=== PATIENT | female | born 1960 | race Caucasian/White ===

== ENCOUNTER → 2019-10-28 10:59 | Outpatient (BNVA) | payer MEDICAID, SELFPAY | PROVIDERS: Family Provider Nurse Practitioner Family; Visit Provider Nurse Practitioner | DX: R05 Cough (principal); J22 Unspecified acute lower respiratory infection | CPT/HCPCS: 87400 ==

== ENCOUNTER → 2019-11-17 07:48 | Outpatient (BNVA) | payer MEDICAID, SELFPAY | PROVIDERS: Family Provider Nurse Practitioner Family; Visit Provider Counselor Professional | DX: F33.2 Major depressive disorder, recurrent severe without psychotic features (principal); F43.9 Reaction to severe stress, unspecified; F42.9 Obsessive-compulsive disorder, unspecified | CPT/HCPCS: 90834 ==

== ENCOUNTER → 2019-11-21 08:49 | Outpatient (BNVA) | payer MEDICAID, SELFPAY | PROVIDERS: Family Provider Nurse Practitioner Family; Visit Provider Counselor Professional | DX: F33.2 Major depressive disorder, recurrent severe without psychotic features (principal); F42.9 Obsessive-compulsive disorder, unspecified | CPT/HCPCS: 90834 ==

== ENCOUNTER → 2019-11-28 07:58 | Outpatient (BNVA) | payer MEDICAID, SELFPAY | PROVIDERS: Family Provider Nurse Practitioner Family; Visit Provider Counselor Professional | DX: F33.2 Major depressive disorder, recurrent severe without psychotic features (principal); F43.9 Reaction to severe stress, unspecified; F42.9 Obsessive-compulsive disorder, unspecified | CPT/HCPCS: 90834 ==

== ENCOUNTER → 2019-11-29 07:35 | Outpatient (BNVA) | payer MEDICAID, SELFPAY | PROVIDERS: Family Provider Nurse Practitioner Family; Visit Provider Psychiatry & Neurology Psychiatry | DX: F33.2 Major depressive disorder, recurrent severe without psychotic features (principal) | CPT/HCPCS: 99205 ==

== ENCOUNTER → 2019-12-05 08:28 | Outpatient (BNVA) | payer MEDICAID, SELFPAY | PROVIDERS: Family Provider Nurse Practitioner Family; Visit Provider Counselor Professional | DX: F33.2 Major depressive disorder, recurrent severe without psychotic features (principal); F43.9 Reaction to severe stress, unspecified; F42.9 Obsessive-compulsive disorder, unspecified | CPT/HCPCS: 90834 ==

== ENCOUNTER → 2019-12-13 08:23 | Outpatient (BNVA) | payer MEDICAID, SELFPAY | PROVIDERS: Family Provider Nurse Practitioner Family; Visit Provider Counselor Professional | DX: F33.2 Major depressive disorder, recurrent severe without psychotic features (principal); F43.9 Reaction to severe stress, unspecified; F42.9 Obsessive-compulsive disorder, unspecified | CPT/HCPCS: 90834 ==

== ENCOUNTER → 2019-12-25 08:35 | Outpatient (BNVA) | payer MEDICAID, SELFPAY | PROVIDERS: Family Provider Nurse Practitioner Family; Visit Provider Counselor Professional | DX: F33.2 Major depressive disorder, recurrent severe without psychotic features (principal); F43.9 Reaction to severe stress, unspecified; F42.9 Obsessive-compulsive disorder, unspecified | CPT/HCPCS: 90834 ==

== ENCOUNTER → 2019-12-29 08:28 | Outpatient (BNVA) | payer MEDICAID, SELFPAY | PROVIDERS: Family Provider Nurse Practitioner Family; Visit Provider Nurse Practitioner Psychiatric/Mental Health | DX: F33.2 Major depressive disorder, recurrent severe without psychotic features (principal); F43.12 Post-traumatic stress disorder, chronic; F42.9 Obsessive-compulsive disorder, unspecified; G47.00 Insomnia, unspecified; F41.1 Generalized anxiety disorder | CPT/HCPCS: 99214 ==

== ENCOUNTER → 2020-01-02 08:43 | Outpatient (BNVA) | payer MEDICAID, SELFPAY | PROVIDERS: Family Provider Nurse Practitioner Family; Visit Provider Counselor Professional | DX: F33.2 Major depressive disorder, recurrent severe without psychotic features (principal); F43.9 Reaction to severe stress, unspecified; F42.9 Obsessive-compulsive disorder, unspecified; F43.12 Post-traumatic stress disorder, chronic; G47.00 Insomnia, unspecified | CPT/HCPCS: 90834 ==

== ENCOUNTER → 2020-01-15 08:09 | Outpatient (BNVA) | payer MEDICAID, SELFPAY | PROVIDERS: Family Provider Nurse Practitioner Family; Visit Provider Counselor Professional | DX: F33.2 Major depressive disorder, recurrent severe without psychotic features (principal); F43.9 Reaction to severe stress, unspecified; F42.9 Obsessive-compulsive disorder, unspecified; F43.12 Post-traumatic stress disorder, chronic | CPT/HCPCS: 90834 ==

== ENCOUNTER → 2020-01-22 08:28 | Outpatient (BNVA) | payer MEDICAID, SELFPAY | PROVIDERS: Family Provider Nurse Practitioner Family; Visit Provider Counselor Professional | DX: F33.2 Major depressive disorder, recurrent severe without psychotic features (principal); F43.9 Reaction to severe stress, unspecified; F42.9 Obsessive-compulsive disorder, unspecified; F43.12 Post-traumatic stress disorder, chronic | CPT/HCPCS: 90834 ==

== ENCOUNTER → 2020-01-26 08:05 | Outpatient (BNVA) | payer MEDICAID, SELFPAY | PROVIDERS: Family Provider Nurse Practitioner Family; Visit Provider Nurse Practitioner Psychiatric/Mental Health | DX: G47.00 Insomnia, unspecified (principal); F33.2 Major depressive disorder, recurrent severe without psychotic features; F43.12 Post-traumatic stress disorder, chronic; F42.9 Obsessive-compulsive disorder, unspecified; F41.1 Generalized anxiety disorder | CPT/HCPCS: 99214 ==

== ENCOUNTER → 2020-01-29 08:08 | Outpatient (BNVA) | payer MEDICAID, SELFPAY | PROVIDERS: Family Provider Nurse Practitioner Family; Visit Provider Counselor Professional | DX: F33.2 Major depressive disorder, recurrent severe without psychotic features (principal); F43.9 Reaction to severe stress, unspecified; F42.9 Obsessive-compulsive disorder, unspecified; F43.12 Post-traumatic stress disorder, chronic; G47.00 Insomnia, unspecified | CPT/HCPCS: 90834 ==

== ENCOUNTER → 2020-02-05 08:15 | Outpatient (BNVA) | payer MEDICAID, SELFPAY | PROVIDERS: Family Provider Nurse Practitioner Family; Visit Provider Counselor Professional | DX: F33.2 Major depressive disorder, recurrent severe without psychotic features (principal); F43.9 Reaction to severe stress, unspecified; F42.9 Obsessive-compulsive disorder, unspecified; F43.12 Post-traumatic stress disorder, chronic; G47.00 Insomnia, unspecified | CPT/HCPCS: 90834 ==

== ENCOUNTER → 2020-02-19 08:23 | Outpatient (BNVA) | payer MEDICAID, SELFPAY | PROVIDERS: Family Provider Nurse Practitioner Family; Visit Provider Counselor Professional | DX: F33.2 Major depressive disorder, recurrent severe without psychotic features (principal); F43.12 Post-traumatic stress disorder, chronic; G47.00 Insomnia, unspecified; F42.9 Obsessive-compulsive disorder, unspecified | CPT/HCPCS: 90832 ==

== ENCOUNTER → 2020-03-11 08:12 | Outpatient (BNVA) | payer MEDICAID, SELFPAY | PROVIDERS: Family Provider Nurse Practitioner Family; Visit Provider Counselor Professional | DX: F33.2 Major depressive disorder, recurrent severe without psychotic features (principal); F43.12 Post-traumatic stress disorder, chronic; G47.00 Insomnia, unspecified; F42.9 Obsessive-compulsive disorder, unspecified | CPT/HCPCS: 90834 ==

== ENCOUNTER → 2020-04-01 08:45 | Outpatient (BNVA) | payer MEDICAID, SELFPAY | PROVIDERS: Family Provider Nurse Practitioner Family; Visit Provider Counselor Professional | DX: F33.2 Major depressive disorder, recurrent severe without psychotic features (principal); F43.12 Post-traumatic stress disorder, chronic; G47.00 Insomnia, unspecified; F42.9 Obsessive-compulsive disorder, unspecified | CPT/HCPCS: 90832 ==

== ENCOUNTER → 2020-04-02 08:02 | Outpatient (BNVA) | payer MEDICAID, SELFPAY | PROVIDERS: Family Provider Nurse Practitioner Family; Visit Provider Nurse Practitioner Psychiatric/Mental Health | DX: F33.2 Major depressive disorder, recurrent severe without psychotic features (principal); F43.12 Post-traumatic stress disorder, chronic; F42.9 Obsessive-compulsive disorder, unspecified; G47.00 Insomnia, unspecified | CPT/HCPCS: 99214 ==

== ENCOUNTER → 2020-04-15 09:22 | Outpatient (BNVA) | payer MEDICAID, SELFPAY | PROVIDERS: Family Provider Nurse Practitioner Family; Visit Provider Counselor Professional | DX: F33.2 Major depressive disorder, recurrent severe without psychotic features (principal); F43.12 Post-traumatic stress disorder, chronic; G47.00 Insomnia, unspecified; F60.5 Obsessive-compulsive personality disorder | CPT/HCPCS: 90834 ==

== ENCOUNTER → 2020-04-29 09:04 | Outpatient (BNVA) | payer MEDICAID, SELFPAY | PROVIDERS: Family Provider Nurse Practitioner Family; Visit Provider Counselor Professional | DX: F33.2 Major depressive disorder, recurrent severe without psychotic features (principal); F43.12 Post-traumatic stress disorder, chronic; G47.00 Insomnia, unspecified; F42.9 Obsessive-compulsive disorder, unspecified | CPT/HCPCS: 90832 ==

== ENCOUNTER → 2020-05-13 08:57 | Outpatient (BNVA) | payer MEDICAID, SELFPAY | PROVIDERS: Family Provider Nurse Practitioner Family; Visit Provider Counselor Professional | DX: F33.2 Major depressive disorder, recurrent severe without psychotic features (principal); F43.12 Post-traumatic stress disorder, chronic; G47.00 Insomnia, unspecified; F42.9 Obsessive-compulsive disorder, unspecified | CPT/HCPCS: 90834 ==

== ENCOUNTER → 2020-05-20 08:55 | Outpatient (BNVA) | payer MEDICAID, SELFPAY | PROVIDERS: Family Provider Nurse Practitioner Family; Visit Provider Counselor Professional | DX: F33.2 Major depressive disorder, recurrent severe without psychotic features (principal); F43.12 Post-traumatic stress disorder, chronic; G47.00 Insomnia, unspecified; F42.9 Obsessive-compulsive disorder, unspecified | CPT/HCPCS: 90832 ==

== ENCOUNTER → 2020-05-28 07:58 | Outpatient (BNVA) | payer MEDICAID, SELFPAY | PROVIDERS: Family Provider Nurse Practitioner Family; Visit Provider Nurse Practitioner Psychiatric/Mental Health | DX: F42.9 Obsessive-compulsive disorder, unspecified (principal); F33.2 Major depressive disorder, recurrent severe without psychotic features; F43.12 Post-traumatic stress disorder, chronic; F17.210 Nicotine dependence, cigarettes, uncomplicated; G47.00 Insomnia, unspecified | CPT/HCPCS: 99214 ==

== ENCOUNTER → 2020-06-03 08:55 | Outpatient (BNVA) | payer MEDICAID, SELFPAY | PROVIDERS: Family Provider Nurse Practitioner Family; Visit Provider Counselor Professional | DX: F33.2 Major depressive disorder, recurrent severe without psychotic features (principal); F43.12 Post-traumatic stress disorder, chronic; G47.00 Insomnia, unspecified; F42.9 Obsessive-compulsive disorder, unspecified; F17.210 Nicotine dependence, cigarettes, uncomplicated | CPT/HCPCS: 90834 ==

== ENCOUNTER → 2020-06-11 15:18 | Outpatient (BNVA) | payer MEDICARE, MEDICAID, SELFPAY | PROVIDERS: Family Provider Nurse Practitioner Family; Visit Provider Nurse Practitioner Psychiatric/Mental Health | DX: G47.00 Insomnia, unspecified (principal); F42.9 Obsessive-compulsive disorder, unspecified; F33.2 Major depressive disorder, recurrent severe without psychotic features; F43.12 Post-traumatic stress disorder, chronic; F17.210 Nicotine dependence, cigarettes, uncomplicated; F90.2 Attention-deficit hyperactivity disorder, combined type | CPT/HCPCS: 99214 ==

== ENCOUNTER → 2020-06-20 08:19 | Outpatient (BNVA) | payer MEDICARE, MEDICAID, SELFPAY | PROVIDERS: Family Provider Nurse Practitioner Family; Visit Provider Nurse Practitioner Psychiatric/Mental Health | DX: F43.12 Post-traumatic stress disorder, chronic (principal); F42.9 Obsessive-compulsive disorder, unspecified; G47.00 Insomnia, unspecified; F33.2 Major depressive disorder, recurrent severe without psychotic features; F17.210 Nicotine dependence, cigarettes, uncomplicated | CPT/HCPCS: 99213 ==

== ENCOUNTER → 2020-06-27 07:38 | Outpatient (BNVA) | payer MEDICARE, MEDICAID, SELFPAY | PROVIDERS: Family Provider Nurse Practitioner Family; Visit Provider Nurse Practitioner Psychiatric/Mental Health | DX: F42.9 Obsessive-compulsive disorder, unspecified (principal); F33.2 Major depressive disorder, recurrent severe without psychotic features; F43.12 Post-traumatic stress disorder, chronic; F17.210 Nicotine dependence, cigarettes, uncomplicated; G47.00 Insomnia, unspecified | CPT/HCPCS: 99214 ==

== ENCOUNTER → 2020-07-04 07:35 | Outpatient (BNVA) | payer MEDICARE, MEDICAID, SELFPAY | PROVIDERS: Family Provider Nurse Practitioner Family; Visit Provider Nurse Practitioner Psychiatric/Mental Health | DX: F42.9 Obsessive-compulsive disorder, unspecified (principal); F33.2 Major depressive disorder, recurrent severe without psychotic features; F43.12 Post-traumatic stress disorder, chronic; F17.210 Nicotine dependence, cigarettes, uncomplicated; G47.00 Insomnia, unspecified | CPT/HCPCS: 99214 ==

== ENCOUNTER → 2020-07-15 14:44 | Outpatient (BNVA) | payer MEDICARE, MEDICAID, SELFPAY | PROVIDERS: Family Provider Nurse Practitioner Family; Visit Provider Nurse Practitioner Psychiatric/Mental Health | DX: F42.9 Obsessive-compulsive disorder, unspecified (principal) | CPT/HCPCS: 99214 ==

== ENCOUNTER → 2020-07-29 09:10 | Outpatient (BNVA) | payer MEDICARE, MEDICAID, SELFPAY | PROVIDERS: Family Provider Nurse Practitioner Family; Visit Provider Nurse Practitioner Psychiatric/Mental Health | DX: F42.9 Obsessive-compulsive disorder, unspecified (principal); F33.2 Major depressive disorder, recurrent severe without psychotic features; F43.12 Post-traumatic stress disorder, chronic; F17.210 Nicotine dependence, cigarettes, uncomplicated; G47.00 Insomnia, unspecified | CPT/HCPCS: 99213 ==

== ENCOUNTER → 2020-09-11 09:03 | Outpatient (BNVA) | payer MEDICARE, MEDICAID, SELFPAY | PROVIDERS: Family Provider Nurse Practitioner Family; PCP Nurse Practitioner Family; Visit Provider Nurse Practitioner Psychiatric/Mental Health | DX: G47.00 Insomnia, unspecified (principal); F42.9 Obsessive-compulsive disorder, unspecified; F33.2 Major depressive disorder, recurrent severe without psychotic features; F43.12 Post-traumatic stress disorder, chronic; F17.210 Nicotine dependence, cigarettes, uncomplicated | CPT/HCPCS: 99214 ==

== ENCOUNTER → 2020-09-23 09:28 | Outpatient (BNVA) | payer MEDICARE, MEDICAID, SELFPAY | PROVIDERS: Family Provider Nurse Practitioner Family; PCP Nurse Practitioner Family; Visit Provider Nurse Practitioner Psychiatric/Mental Health | DX: F42.9 Obsessive-compulsive disorder, unspecified (principal); F33.2 Major depressive disorder, recurrent severe without psychotic features; F43.12 Post-traumatic stress disorder, chronic; F17.210 Nicotine dependence, cigarettes, uncomplicated; G47.00 Insomnia, unspecified | CPT/HCPCS: 99214 ==

== ENCOUNTER → 2020-09-28 12:17 | Outpatient (BNVA) | payer MEDICARE, MEDICAID, SELFPAY | PROVIDERS: Family Provider Nurse Practitioner Family; PCP Nurse Practitioner Family; Visit Provider Internal Medicine Pulmonary Disease | DX: Z01.812 Encounter for preprocedural laboratory examination (principal); Z20.828 Contact with and (suspected) exposure to other viral communicable diseases | CPT/HCPCS: 87635 ==

== ENCOUNTER 2020-10-03 13:01 | Outpatient (CLI) | payer MEDICARE, MEDICAID, SELFPAY ==
--- NOTE | 2020-10-03 13:07 | CT_ITS ---
WS: [id number] CT CHEST WITHOUT INTRAVENOUS CONTRAST HISTORY: FOLLOW UP OF RIGHT LUNG OPACITY TECHNIQUE: Contiguous 5 mm axial imaging performed on the thorax. Coronal and sagittal reformats are submitted. All CT scans at [facility] use at least one of these dose optimization techniq ues: automated exposure control; mA and/or kV adjustment per patient size (includes targeted exams wh ere dose is matched to clinical indication); or iterative reconstruction. CONTRAST: None DLP: 877.22 mGy.cm COMPARISON: 06/28/2019 and 11/28/2018 Lungs and central airway: Lungs are hyperexpanded from emphysema. No new or suspicious mass. There is a rounded opacifications in the RIGHT lower lobe abutting the pleura with a small amount of pleural thickening. This rounded opacification contains some calcifications and measures 4.0 x 1.7 cm. No inc rease in size over several years. This appears to be rounded atelectasis with adjacent reactive pleur al thickening. No pneumonia. Normal vasculature. Pleura: No pleural effusion. Heart and pericardium: Normal size heart with no pericardial effusion. Mediastinum and magdalena: No mediastinum or hilar adenopathy. Vessels: Marked dilatation of the pulmonary artery. Pulmonary artery is dilated to 4.7 cm. Mild ather osclerosis aorta. Chest wall and lower neck: No soft tissue masses. Upper abdomen: Negative. Osseous structures: No destructive process. CT/CT chest wo con [id number] IMPRESSION: 1. Long-term stability rounded atelectasis RIGHT lower thorax. 2. Marked enlargement of the pulmonary artery to 4.7 cm. 3. Chronic emphysema.
--- NOTE | 2020-10-03 13:55 | PFTS_ITS ---
Date of Study:10/03/20 Date of Dictation: 10/08/2020 MECHANICS: Forced vital capacity (FVC) is reduced. Forced expiratory volume in one second (FEV1) is severely reduced 39% FEV1/FVC is reduced. There is significant response to bronchodilators. FLOW VOLUME LOOP: Sloping of expiratory limb suggestive of significant airway obstruction . LUNG VOLUMES: Not measured DIFFUSING CAPACITY FOR CARBON MONOXIDE: Moderately reduced 59% . INTERPRETATION: The spirometry consistent with severe obstructive ventilatory defect with significant response to bronchodilators. Moderately reduced gas transfer. Please correlate clinically MTDD
== END 2020-10-03 13:02 | disposition home or self-care (01) ==
LOC: RT 13:05
PROVIDERS: PCP Nurse Practitioner Family; Visit Provider Internal Medicine Pulmonary Disease
DX: F33.2 Major depressive disorder, recurrent severe without psychotic features (principal); F42.9 Obsessive-compulsive disorder, unspecified; F43.12 Post-traumatic stress disorder, chronic; F17.210 Nicotine dependence, cigarettes, uncomplicated; G47.00 Insomnia, unspecified; J44.9 Chronic obstructive pulmonary disease, unspecified
CPT/HCPCS: 71250; 94060; 94618; 94729; 99214; J7611

== ENCOUNTER → 2020-10-11 07:57 | Outpatient (BNVA) | payer MEDICARE, MEDICAID, SELFPAY | PROVIDERS: PCP Nurse Practitioner Family; Visit Provider Nurse Practitioner Psychiatric/Mental Health | DX: F42.9 Obsessive-compulsive disorder, unspecified (principal); F33.2 Major depressive disorder, recurrent severe without psychotic features; F43.12 Post-traumatic stress disorder, chronic; F17.210 Nicotine dependence, cigarettes, uncomplicated; G47.00 Insomnia, unspecified | CPT/HCPCS: 99214 ==

== ENCOUNTER → 2020-11-12 09:28 | Outpatient (BNVA) | payer MEDICARE, MEDICAID, SELFPAY | PROVIDERS: PCP Nurse Practitioner Family; Visit Provider Nurse Practitioner Psychiatric/Mental Health | DX: F42.9 Obsessive-compulsive disorder, unspecified (principal); F33.2 Major depressive disorder, recurrent severe without psychotic features; F43.12 Post-traumatic stress disorder, chronic; F17.210 Nicotine dependence, cigarettes, uncomplicated; G47.00 Insomnia, unspecified | CPT/HCPCS: 99214 ==

== ENCOUNTER 2020-11-19 20:00 | Outpatient (CLI) | payer MEDICARE, MEDICAID, SELFPAY | END 2020-11-19 20:01 | disposition home or self-care (01) | LOC: SLEEP 11-20 08:23 | PROVIDERS: PCP Nurse Practitioner Family; Visit Provider Internal Medicine Pulmonary Disease | DX: G47.33 Obstructive sleep apnea (adult) (pediatric) (principal); I26.99 Other pulmonary embolism without acute cor pulmonale | CPT/HCPCS: 95811 ==

== ENCOUNTER → 2020-12-02 07:42 | Outpatient (BNVA) | payer MEDICARE, MEDICAID, SELFPAY | PROVIDERS: PCP Nurse Practitioner Family; Visit Provider Nurse Practitioner Psychiatric/Mental Health | DX: F42.9 Obsessive-compulsive disorder, unspecified (principal); F33.2 Major depressive disorder, recurrent severe without psychotic features; F43.12 Post-traumatic stress disorder, chronic; F17.210 Nicotine dependence, cigarettes, uncomplicated; G47.00 Insomnia, unspecified | CPT/HCPCS: 99214 ==

== ENCOUNTER 2021-01-08 11:33 | Outpatient (CLI) | payer MEDICARE, MEDICAID, SELFPAY ==
[2021-01-11 03:48] LABS: Antithrombin III Activity 95 % normal (80-135)
[2021-01-11 21:27] LABS: PROTEIN C, ACTIVITY 124 % (70-180)
[2021-01-14 01:28] LABS: PROTEIN S, ACTIVITY 103 % normal (60-140)
== END 2021-01-08 11:34 | disposition home or self-care (01) ==
LOC: LAB 11:37
PROVIDERS: PCP Nurse Practitioner Family; Visit Provider Internal Medicine Pulmonary Disease
DX: I26.99 Other pulmonary embolism without acute cor pulmonale (principal)
CPT/HCPCS: 36415; 81241; 85210; 85300; 85303; 85306

== ENCOUNTER 2021-01-28 14:00 | Outpatient (CLI) | payer MEDICARE, MEDICAID, SELFPAY ==
--- NOTE | 2021-01-28 14:12 | CT_ITS ---
WS: [id number] CT CHEST WITH INTRAVENOUS CONTRAST HISTORY: CHEST PAIN, UNSPECIFIED TECHNIQUE: Contiguous 5 mm axial imaging performed on the thorax. Coronal and sagittal reformats are submitted. All CT scans at [facility] use at least one of these dose optimization techniq ues: automated exposure control; mA and/or kV adjustment per patient size (includes targeted exams wh ere dose is matched to clinical indication); or iterative reconstruction. CONTRAST: Omnipaque 300; 95 mL IV. DLP: 980.98 mGycm COMPARISON: 10/03/2020 Quality of this examination is significantly limited by breathing artifact. Lungs and central airway: Chronic emphysema. Lucencies in the upper lung fofana. Lungs are hyperexpan ded. Rounded atelectasis is again noted the RIGHT lung base without significant increase in size. Sub tle changes or new nodules would be difficult to visualize with this amount of motion. Pleura: Small RIGHT pleural effusion and pleural thickening. Heart and pericardium: Mild enlargement of the LEFT heart chambers. No effusion. Mediastinum and magdalena: No mediastinum or hilar adenopathy. Vessels: Mild atherosclerosis aorta. Severe enlargement of pulmonary artery measuring up to 4.4 cm. M ain pulmonary arteries are also dilated with rapid tapering. Chest wall and lower neck: No soft tissue masses. Upper abdomen: No adrenal mass. Low-attenuation lesion in the spleen is probably a small cyst. Stable compared to the prior study. Osseous structures: Straightening of the normal thoracic kyphosis with mild curvature. CT/CT chest w con* [id number] IMPRESSION: 1. Quality of this examination is compromised by breathing artifact. 2. Rounded atelectasis is stable at the RIGHT lung base. 3. No adenopathy. 4. Marked pulmonary hypertension. 5. Mild atherosclerosis aorta.
[2021-01-28] MEDS: iohexol 300 mg/mL 100 mL Btl IV (14:45)
== END 2021-01-28 14:01 | disposition home or self-care (01) ==
PROVIDERS: PCP Nurse Practitioner Family; Visit Provider Nurse Practitioner Family
DX: R07.9 Chest pain, unspecified (principal); J98.11 Atelectasis; I27.20 Pulmonary hypertension, unspecified; I70.0 Atherosclerosis of aorta
CPT/HCPCS: 71260; Q9967

== ENCOUNTER 2021-01-29 13:00 | Outpatient (CLI) | payer MEDICARE, MEDICAID, SELFPAY ==
--- NOTE | 2021-01-29 19:06 | ONC CON_ITS ---
Dr. Campos New Patient Note Patient: Anne Turcios Unit #: [id number]: 1960 Dicatated By: Ameya Campos M.D.Date of Visit: Jan 29, 2021 Onc MED New Patient/Consult Referring Physician: Daryl Russell Chief Complaint: Factor V Leiden mutation. History of Present Illness: This is a 60-year-old woman with history of pulmonary embolism who has now been found to have heterozygosity for the factor V Leiden mutation. She had a major episode of pulmonary embolism in July 2017, reportedly saddle embolus. She was living in [facility]. She was treated with Pradaxa, which she continued after moving to this area. She had stopped taking it a couple of months ago when she began having frequent episodes of red blood in the stool. The bleeding resolved after she stopped the medication. She had initially been seen by Dr. Russell in August 2020. Her pulmonary function studies on 10/03/2020 showed severe obstructive ventilatory defect with significant responses to bronchodilators. Her chest CT at that time showed long-term stability of rounded atelectasis in the right lower thorax. There was marked enlargement of the pulmonary artery to 4.7 cm and there was evidence of chronic emphysema. With her follow-up visit on 01/06/2021 she was scheduled for thrombophilia evaluation which confirmed heterozygosity for the factor V Leiden mutation. It was otherwise unrevealing, with normal protein C, protein S, and Antithrombin III activity and with no evidence for a prothrombin gene mutation. She then had a repeat chest CT on 01/28/2021. Rounded atelectasis at the right lung base appeared stable. There was no evidence of pulmonary embolism, but there was evidence of marked pulmonary hypertension. She is seen now for further management of the thrombophilia. Her main complaint is that for the past month and a half or so she has had episodes of sharp, pleuritic pain in the upper left chest. These have been occurring about every 2 weeks and lasting several days. She also has been having spells of weakness in her legs, severe enough that she has to sit down. These tend to occur after the chest pain. She has limited activity tolerance due to weakness and shortness of breath. Her ECOG score is 2. She has good appetite. Her weight has been stable. She has not had fever. She does have some hot flashes and sweating. She reports having frequent episodes of double vision which last 3 to 4 minutes and she intermittently has a nolasco shadow, over her vision. She has shortness of breath and she has nonproductive cough. She uses oxygen as needed. She has nausea off and on. She has no other GI complaints. She has not had any recurrence of blood in the stool since she stopped the Pradaxa. She has no complaints with bladder function. She has no other joint or bone pain. She does not complain of headache. She does report having dizziness almost every day. She has no numbness/paresthesia or other focal neurologic symptoms. She complains that she has a lot of anxiety and that the medication is not controlling it that well. She says she does not have depression, though her records indicate a history of major depression. Past Medical History: Her medical history includes anxiety, chronic obstructive pulmonary disease, depression, hyperlipidemia, hypothyroidism, insomnia, obsessive-compulsive disorder, obstructive sleep apnea, and post traumatic stress disorder. Past Surgical History: Her only surgery was a tubal ligation. Medications: Anoro Ellipta Aerosol Powder, Breath Activated Inhalation, Atorvastatin Calcium 1 Tablet (of 10 mg) Oral daily, clomiPRAMINE HCl 2 (50 mg) Capsule Oral at bedtime, Levothyroxine Sodium 1 Tablet (of 175 mcg) Oral daily, Montelukast Sodium (10 mg) Tablet Oral daily, ProAir HFA Aerosol, solution Inhalation Allergies: No Known Allergies. Social History: Ms. Turcios is . She has history of smoking 1/2 pack of cigarettes daily for 50 years. She has not been able to quit. She has a prior history of methamphetamine use. She has had some alcohol use, but never heavy and now infrequent. Family History: Father at age 80 of natural causes . Mother with emphysema at age 79. A brother as result of homicide at age 62. Her other brother has had pulmonary embolism. She has 3 sisters. One sister also has had pulmonary embolism. Another sister has lung cancer. Review Of Symptoms: Constitutional - She has very limited activity due to shortness of breath and weakness. Her appetite is good. Her weight is stable. She has not had fever. She does have hot flashes and sweating. ECOG score is 2, Eyes - She reports having frequent episodes of double vision lasting 3 to 4 minutes. She intermittently has any nolasco shadow over her vision, ENMT - No sinus congestion/drainage. No mouth sores. No sore throat or difficulty swallowing, Hematologic/Lymphatic - She has easy bruising, Respiratory - She has shortness of breath. She uses oxygen as needed. She has nonproductive cough. No pleuritic pain or hemoptysis, Cardiovascular - She has been having episodes of sharp pleuritic pain in the upper left chest occurring about every 2 weeks and lasting several days. She also reports having palpitations, Gastrointestinal - She has nausea off and on. No heartburn or acid reflux. No diarrhea or constipation. She was having red blood in the stool while she was taking Pradaxa, but none since she stopped the medication, Genitourinary (F) - No dysuria or hematuria. No urinary frequency. No urgency or incontinence, Musculoskeletal - No other joint or bone pain, Integumentary - No skin rash or other skin changes, Neurologic - No headache. She does complain of having dizziness. No numbness or tingling. No other focal neurologic symptoms, Psychiatric - She complains of having anxiety since her medication is not effective. She does not have depression. No insomnia. Vital Signs: Performed on Jan 29, 2021 15:47: 0, 0, 31.00 (HIGH), 1.87 sq.m, 64 in, 95 % (LOW), 71 /min, 18 /min, 123/80 mm(hg), 96.4 F (LOW), and 180.6 lbs (HIGH). Physical Examination: Constitutional - She appears to be in reasonably good general health, Eyes - Sclerae nonicteric. Conjunctivae clear, ENMT - No lesions noted in the oral cavity, Neck - No mass or thyromegaly, Hematologic/Lymphatic - No cervical, clavicular, or axillary adenopathy, Respiratory - Lungs are clear with diminished air movement bilaterally, Cardiovascular - Heart rhythm is regular. There is no murmur, gallop, or rub noted, Abdomen - Soft with mild, generalized abdominal tenderness. Liver and spleen are not enlarged. There is no abdominal mass or ascites noted and there is no inguinal adenopathy, Back/Spine - No spine or CVA tenderness noted, Extremities - No edema. Pedal pulses are palpable bilaterally, Integumentary - No rashes. No suspicious skin lesions noted, Neurologic - No focal neurologic deficits noted. Problem List: 1. Patient with history of major episode of pulmonary embolism in July 2017, treated with Pradaxa. She had recently stopped taking it because of rectal bleeding. Her thrombophilia evaluation showed heterozygosity for the factor V Leiden mutation. She also does have a positive family history for thromboembolism. 2. COPD. 3. She has CT evidence of pulmonary hypertension. 4. She recently has complained of pleuritic pain in the upper left chest. Repeat chest CT on 01/28/2021 showed evidence of marked pulmonary hypertension, but there was no evidence of pulmonary emboli. 5. Obstructive sleep apnea. 6. Hyperlipidemia. 7. Hypothyroidism. 8. PTSD with chronic anxiety and with history of depression. Problems Addressed with this Encounter and Plan: Patient with history of major episode of pulmonary embolism in July 2017, treated with Pradaxa. Her thrombophilia evaluation showed heterozygosity for the factor V Leiden mutation. She also does have a positive family history for thromboembolism. She had recently stopped taking the Pradaxa because of rectal bleeding. The bleeding had subsequently resolved. In the meantime, she has since then complained of episodes of pleuritic pain in the upper left chest. Her repeat chest CT on 01/28/2021 showed no evidence of pulmonary emboli, but there was evidence of marked pulmonary hypertension, which may be the cause for the chest pain. We discussed the fact with a history of having a major episode of unprovoked pulmonary embolism she will be at significant risk for recurrent thromboembolism off anticoagulation. Under normal circumstances, the episode itself would be an indication for long-term anticoagulation irrespective of the factor V Leiden mutation. I am also concerned about the source of the rectal bleeding, she has not had any type of GI evaluation. As such, I have recommended that she first have a screening colonoscopy. In the absence of any underlying pathology, I would strongly encourage her to restart anticoagulation, even if it is at a reduced, maintenance dosage. In the meantime, I also will confer with Dr. Russell regarding further evaluation/management of the pulmonary hypertension. Signed By: Ameya Campos M.D. <<Signature on File>>
== END 2021-01-29 13:01 | disposition home or self-care (01) ==
PROVIDERS: PCP Nurse Practitioner Family; Visit Provider Internal Medicine Medical Oncology
DX: I26.99 Other pulmonary embolism without acute cor pulmonale (principal); D68.51 Activated protein C resistance; J44.9 Chronic obstructive pulmonary disease, unspecified; I27.20 Pulmonary hypertension, unspecified; G47.33 Obstructive sleep apnea (adult) (pediatric); E78.5 Hyperlipidemia, unspecified; E03.9 Hypothyroidism, unspecified; F43.10 Post-traumatic stress disorder, unspecified; F41.9 Anxiety disorder, unspecified; F32.9 Major depressive disorder, single episode, unspecified; Z79.899 Other long term (current) drug therapy; Z79.01 Long term (current) use of anticoagulants
CPT/HCPCS: 99205

== ENCOUNTER → 2021-03-12 12:43 | Outpatient (BNVA) | payer MEDICARE, MEDICAID, SELFPAY | PROVIDERS: PCP Nurse Practitioner Family; Visit Provider Surgery | DX: K92.1 Melena (principal); Z20.822 Contact with and (suspected) exposure to COVID-19 | CPT/HCPCS: 87635 ==

== ENCOUNTER 2021-03-13 07:35 | Outpatient (CLI) | payer MEDICARE, MEDICAID, SELFPAY ==
--- NOTE | 2021-03-13 07:53 | XR_ITS ---
WS: [id number] PROCEDURE: XR chest 2V* [id number] CLINICAL INFORMATION: Pulmonary HTN COMPARISON: FINDINGS: Heart: Stable cardiomegaly. Lungs: Hyperinflation. Moderate to advanced chronic emphysematous changes. Bibasilar atelectasis. No acute pulmonary infiltrates. Bones: Osteopenia. Mild thoracic curve convex left. XR/XR chest 2V* [id number] IMPRESSION: 1. Stable cardiomegaly. 2. Moderate to advanced chronic emphysematous changes. 3. Slight bibasilar atelectasis.
--- NOTE | 2021-03-13 07:53 | NM_ITS ---
WS: [id number] NUCLEAR MEDICINE LUNG VENTILATION AND PERFUSION CLINICAL INFORMATION: rule out Chronic thromboembolism in pt with h/o PE TECHNIQUE: Ventilation/perfusion lung scan with 32.9 mCi technetium 99m DTPA. 5.5 mCi technetium 99m MAA COMPARISON: Radiograph March 13, 2021 FINDINGS: Diffuse heterogeneous perfusion throughout both lungs with central bronchial radiotracer deposition. Heterogeneous perfusion due to emphysematous change. Two lobar matched perfusion defects in the right upper and right lower lobes. Normal perfusion left lung. No mismatched perfusion defects. NM/NM pul vent and perfus* [id number] IMPRESSION: 1. Low to intermediate probability for pulmonary embolus. 2. Findings can be further evaluated with CTA chest PE protocol if renal functi on permits. Exam interpreted using the modified PIOPED II criteria 2008
== END 2021-03-13 07:36 | disposition home or self-care (01) ==
PROVIDERS: PCP Nurse Practitioner Family; Visit Provider Internal Medicine Pulmonary Disease
DX: I27.20 Pulmonary hypertension, unspecified (principal); I26.99 Other pulmonary embolism without acute cor pulmonale
CPT/HCPCS: 71046; 78014; A9540; A9567

== ENCOUNTER 2021-03-17 06:19 | Day surgery (SDC) | payer MEDICARE, MEDICAID, SELFPAY ==
[2021-03-13 13:52] VITALS: BMI 30.9
[2021-03-17 06:41] VITALS: BP 141/94; PULSE 74; RESP 18; TEMP 36.1; O2SAT 93
[2021-03-17] MEDS: sodium chloride 0.9% 1,000 ML 30 ML IV (06:48)
--- NOTE | 2021-03-17 07:18 | P.HP_ITS ---
Same Day Surgery H&P Indication for Procedure/HPI DATE OF PROCEDURE: March 17, 2021 CHIEF COMPLAINT/INDICATIONFOR SURGICAL PROCEDURE: colonoscopy PREOP DIAGNOSIS: diagnostic PLANNED PROCEDRUE: Operation Date: 03/17/21 07:30 Proposed Procedures p Colonoscopy 12360 k92.1(Not Applicable) - Anjel Skinner MD Medications/Allergies* Home Medications Medication Instructions Recorded Confirmed Type albuterol sulfate 5 mg/mL(0.5 %) 2.5 mg INHALATION Q4H PRN 10/28/19 03/17/21 History solution for nebulization albuterol sulfate 90 mcg/actuation 2 puff INHALATION Q6H PRN 10/28/19 03/17/21 History aerosol inhaler montelukast 10 mg tablet 10 mg PO DAILY 10/28/19 03/17/21 History oxygen-air delivery systems #1 10/28/19 03/13/21 History levothyroxine 175 mcg capsule 175 mcg PO DAILY 06/11/20 03/17/21 History atorvastatin 20 mg tablet 20 mg PO .QHS tab 12/09/20 03/17/21 History Allergies/Adverse Reactions Allergy/AdvReac Type Severity Reaction Status Date / Time No Known Allergies Allergy Verified 03/17/21 06:45 Current Medications: Generic Name Dose Route Start Last Admin Trade Name Freq PRN Reason Stop Dose Admin Sodium Chloride 1,000 mls @ 30 mls/hr 03/17/21 06:30 03/17/21 06:48 Sodium Chloride 0.9% IV 03/18/21 06:29 30 mls/hr .Q24H MELE Administration Pertinent History/Comorbid Conditions* Medical History (Updated 03/03/21 @ 19:01 by Daryl Russell MD) Chronic post-traumatic stress disorder Insomnia Major depressive disorder, recurrent severe without psychotic features Obsessive-compulsive disorder with good or fair insight Obstructive sleep apnea Surgical History (Updated 02/10/21 @ 14:37 by Anjel Skinner MD) History of tubal ligation Social History Quit status (tobacco): not considering quitting Second hand smoke exposure: No Smoking risk assessment/counseling performed?: Yes Alcohol intake: never Lives independently: Yes Household members: none Marital status: Current occupational status: disabled Pets and animals: No History of recent travel: No Current gender identity: Female Pertinent Exam Findings alert and oriented x 3 Recommendations Surgery/Procedure today Coding Level of Care Code Acute Loss Prevention Detective for Chg Fwd
--- NOTE | 2021-03-17 07:25 | ANES.PREANE2 ---
Pre-Anesthetic Assessment Pre-Anesthetic Assessment: Height/Weight: Height 1.63 m Weight 81.647 kg Temp Pulse Resp BP Pulse Ox 97 F L 74 18 141/94 93 03/17/21 06:41 03/17/21 06:41 03/17/21 06:41 03/17/21 06:41 03/17/21 06:41 Preop Diagnosis: diagnostic Proposed Procedure: Operation Date: 03/17/21 07:30 Proposed Procedures p Colonoscopy 45279 k92.1(Not Applicable) - Anjel Skinner MD Was Beta Erwin taken within 24 hours: N/A Was Clonidine taken within 24 hours: N/A Last intake: Intake Last Liquid Date 03/16/21 Last Liquid Time 23:00 Last Solid Date 03/15/21 Social: Social History: Alcohol and Tobacco Exam: Pre-Anes Outpt Exam: alert, oriented x 3, clear to auscultation bilaterally and regular rate & rhythm Airway: Submandibular: WNL Cervical ROM: WNL MP: 2 Dentition: Full History/ROS: No significant history except as noted and No significant complaints Pulmonary: Pulmonary: Sleep apnea CV/HEM: CV/HEM: None reported : : None reported Hepatic: Hepatic: None reported GI: GI: None reported Metabolic: Metabolic: None reported Musc/skel: Musc/skel: None reported Neuropsych: Neuropsych: Anxiety, Bipolar, Depression and None reported Anesthetic Plan: ASA status: 2 Anesthesia: MAC Risk of > 500 ml blood loss (7ml/kg in children): No Meds/Allergies Current Medications: Current Medications Generic Name Dose Route Start Last Admin Trade Name Freq PRN Reason Stop Dose Admin Sodium Chloride 1,000 mls @ 30 ml s/hr 03/17/21 06:30 03/17/21 06:48 Sodium Chloride 0.9% IV 03/18/21 06:29 30 mls/hr .Q24H MELE Administration PFSH Anesthesia PFSH: Medical History Chronic post-traumatic stress disorder Insomnia Major depressive disorder, recurrent severe without psychotic features Obsessive-compulsive disorder with good or fair insight Obstructive sleep apnea Surgical History History of tubal ligation Social History Quit status (tobacco): not considering quitting Second hand smoke exposure: No Smoking risk assessment/counseling performed?: Yes Alcohol intake: never Lives independently: Yes Household members: none Marital status: Current occupational status: disabled Pets and animals: No History of recent travel: No Current gender identity: Female Data Anesthesia Cardiac Studies: No Data to Display
[2021-03-17 07:53] VITALS: BP 120/84; PULSE 68; RESP 16; TEMP 36.3; O2SAT 94
[2021-03-17 08:06] VITALS: BP 135/76; PULSE 62; RESP 18; O2SAT 95
--- NOTE | 2021-03-17 08:26 | PC.NURSE ---
Pt c/o abdominal pain 12/23, passed some gas,was encouraged to ambulate to facilitate gas movement and use the toilet. pt expressed concern that she didn't want everyone listening.
--- NOTE | 2021-03-17 19:24 | ANE.PACU2 ---
Inpatient post-anesthesia follow up: Airway intact: Yes Vital signs: Temperature 97.3 F Pulse Rate 62 Respiratory Rate 18 Blood Pressure 135/76 Pulse Oximetry 95 Oxygen Delivery Me thod Room Air Oxygen Flow Rate 4 Fraction of Inspir ed Oxygen Hydration adequate: Yes Nausea and vomiting: No Pain level: 2 Mental status: Baseline
== END 2021-03-17 08:35 | disposition home or self-care (01) ==
PROVIDERS: PCP Nurse Practitioner Family; Visit Provider Surgery
PROC: 0DJD8ZZ Inspection of Lower Intestinal Tract, Via Natural or Artificial Opening Endoscopic (ICD-10-PCS; CPT 45378; principal; 2021-03-17 07:30)
DX: K92.1 Melena (principal); G47.33 Obstructive sleep apnea (adult) (pediatric); D12.4 Benign neoplasm of descending colon; K64.8 Other hemorrhoids; D12.8 Benign neoplasm of rectum
CPT/HCPCS: 45380; 45385; 88305; 96360; J2704; J7030

== ENCOUNTER 2021-03-27 06:58 | Outpatient (CLI) | payer MEDICARE, MEDICAID, SELFPAY ==
--- NOTE | 2021-03-27 07:05 | USCV_ITS ---
Anne Turcios Age: 60 Gender: F : 1960 Exam Date: 03/27/2021 07:13 Ordering Phys: Daryl Russell MD Technologist: Kamila Jay Exam Location: [facility] [place] Indication: Pulmonary Hypertension BP: 119 / 70 HR: 69 Rhythm: Sinus Technical Quality: Technically difficult study MEASUREMENTS (Male / Female) Normal Values 2D ECHO LV Diastolic Diameter PLAX 3.8 cm 4.2 - 5.9 / 3.9 - 5.3 cm LV Systolic Diameter PLAX 3.2 cm IVS Diastolic Thickness 1.7 cm 0.6 - 1.0 / 0.6 - 0.9 cm IVS Systolic Thickness 1.8 cm LVPW Diastolic Thickness 1.3 cm 0.6 - 1.0 / 0.6 - 0.9 cm LVPW Systolic Thickness 1.7 cm RV Chamber Size 2.8 cm LVOT Diameter 2.0 cm LV Ejection Fraction 2D Teich 34.5 % LV Ejection Fraction MOD 2C 61.2 % LV Ejection Fraction 2C AL 62.5 % LA Diameter 3.1 cm LA Width 3.1 cm LA Height 5.0 cm RA Width 3.4 cm RA Height 4.5 cm Aorta at Sinotubular Diameter 2.1 cm DOPPLER AV Peak Velocity 156.0 cm/s LVOT Peak Velocity 107.0 cm/s AV Area Cont Eq vti 2.3 cm squared AV Area Cont Eq pk 2.2 cm squared MV Area PHT 3.6 cm squared Mitral E to A Ratio 0.8 MV E' Velocity 40.5 cm/s Mitral E to MV E' Ratio 7.8 Mitral E to LV E' Lateral Ratio 8.1 Mitral E to LV E' Septal Ratio 7.6 TR Peak Velocity 217.0 cm/s TR Peak Gradient 18.8 mmHg TV Peak E Velocity 45.0 cm/s PV Peak Velocity 104.0 cm/s RV Acceleration Time 0.1 s RV Ejection Time 0.3 s RV AcT/ET 0.5 FINDINGS Left Ventricle Normal left ventricular cavity size. Normal left ventricular systolic function. No regional wall motion abnormalities. Left ventricular ejection fraction is estimated at 65 %. Grade I/IV diastolic dysfunction (abnormal relaxation filling pattern), normal to mildly elevated filling pressures. Right Ventricle The right ventricle is normal in size and function. RVSP could not be calculated due to incomplete tricuspid regurgitation velocity profile. Right Atrium The right atrium is normal in size. Left Atrium The left atrium is normal in size. Mitral Valve Structurally normal mitral valve without significant stenosis or prolapse. There is no mitral regurgitation. Aortic Valve Moderate aortic valve calcification. No aortic valve stenosis. Mild aortic valve regurgitation. Tricuspid Valve Structurally normal tricuspid valve without significant stenosis or regurgitation. Pulmonic Valve Structurally normal pulmonic valve without significant stenosis. There is no pulmonic regurgitation. Pericardium Normal pericardium without effusion. Aorta Normal ascending aorta dimension. CONCLUSIONS 1-Normal left ventricular cavity size. Normal left ventricular systolic function. No regional wall motion abnormalities. Left ventricular ejection fraction is estimated at 65 %. Grade I/IV diastolic dysfunction (abnormal relaxation filling pattern), normal to mildly elevated filling pressures. 2-Moderate aortic valve calcification. No aortic valve stenosis. Mild aortic valve regurgitation. 3-The right ventricle is normal in size and function. RVSP could not be calculated due to incomplete tricuspid regurgitation velocity profile. 4-There is no pericardial effusion. 5-Right atrial pressure is around 5 mm of mercury. 6-There are no prior echocardiogram studies to compare. Glenda Ram MD (Electronically Signed) Final Date: 27 March 2021 17:37 S
== END 2021-03-27 06:59 | disposition home or self-care (01) ==
LOC: US 07:02
PROVIDERS: PCP Nurse Practitioner Family; Visit Provider Internal Medicine Pulmonary Disease
DX: I27.20 Pulmonary hypertension, unspecified (principal); I35.1 Nonrheumatic aortic (valve) insufficiency
CPT/HCPCS: 93306

== ENCOUNTER 2021-09-04 12:28 | Emergency (ER) | payer MEDICARE, MEDICAID, SELFPAY ==
[2021-09-04 12:48] VITALS: BP 119/71; PULSE 83; RESP 22; TEMP 37.1; O2SAT 90; BMI 33.5
--- NOTE | 2021-09-04 13:01 | XR_ITS ---
WS: [id number] Exam: XR chest 1V portable [id number] Date/Time of Exam: 09/04/2021 1:01 PM Reason For Exam: cough Comparison 03/13/2021. The lungs are hyperinflated and clear. Plaque atelectasis in the left lung base. No pleural effusions . Mild cardiac enlargement unchanged. Bony structures are intact. One old right-sided rib fracture no samantha. XR/XR chest 1V portable [id number] IMPRESSION: 1. Pulmonary hyperinflation which may indicate obstructive lung disease. Mild c ardiac enlargement unchanged. 2. No acute cardiopulmonary finding.
== END 2021-09-04 19:20 | disposition left against medical advice (07) ==
PROVIDERS: Emergency Provider Family Medicine; PCP Nurse Practitioner Family
DX: Z53.21 Procedure and treatment not carried out due to patient leaving prior to being seen by health care provider (principal)
CPT/HCPCS: 71045

== ENCOUNTER → 2021-10-01 07:47 | Outpatient (BNVA) | payer MEDICARE, MEDICAID, SELFPAY | PROVIDERS: PCP Nurse Practitioner Family; Visit Provider Nurse Practitioner Psychiatric/Mental Health | DX: F42.9 Obsessive-compulsive disorder, unspecified (principal); F33.2 Major depressive disorder, recurrent severe without psychotic features; F43.12 Post-traumatic stress disorder, chronic; F17.210 Nicotine dependence, cigarettes, uncomplicated; G47.00 Insomnia, unspecified | CPT/HCPCS: 99214 ==

== ENCOUNTER → 2021-11-12 07:45 | Outpatient (BNVA) | payer MEDICARE, MEDICAID, SELFPAY | PROVIDERS: PCP Nurse Practitioner Family; Visit Provider Nurse Practitioner Psychiatric/Mental Health | DX: F42.9 Obsessive-compulsive disorder, unspecified (principal); F33.2 Major depressive disorder, recurrent severe without psychotic features; F43.12 Post-traumatic stress disorder, chronic; F17.210 Nicotine dependence, cigarettes, uncomplicated; Z79.899 Other long term (current) drug therapy; G47.00 Insomnia, unspecified | CPT/HCPCS: 99214 ==

== ENCOUNTER → 2021-11-20 10:30 | Outpatient (BNVA) | payer MEDICARE, MEDICAID, SELFPAY | PROVIDERS: PCP Nurse Practitioner Family; Visit Provider Nurse Practitioner Psychiatric/Mental Health | DX: Z79.899 Other long term (current) drug therapy (principal) | CPT/HCPCS: 83036 ==

== ENCOUNTER → 2022-01-20 07:14 | Outpatient (BNVA) | payer MEDICARE, MEDICAID, SELFPAY | PROVIDERS: PCP Nurse Practitioner Family; Visit Provider Nurse Practitioner Psychiatric/Mental Health | DX: F42.9 Obsessive-compulsive disorder, unspecified (principal); F33.2 Major depressive disorder, recurrent severe without psychotic features; F43.12 Post-traumatic stress disorder, chronic; G47.00 Insomnia, unspecified; F17.210 Nicotine dependence, cigarettes, uncomplicated | CPT/HCPCS: 99214 ==

== ENCOUNTER → 2022-02-09 14:07 | Outpatient (BNVA) | payer MEDICARE, MEDICAID, SELFPAY | PROVIDERS: PCP Nurse Practitioner Family; Visit Provider Nurse Practitioner Psychiatric/Mental Health | DX: Z79.899 Other long term (current) drug therapy (principal) | CPT/HCPCS: 80053; 80061; 82306; 84439; 84443 ==

== ENCOUNTER → 2022-02-11 07:10 | Outpatient (BNVA) | payer MEDICARE, MEDICAID, SELFPAY | PROVIDERS: PCP Nurse Practitioner Family; Visit Provider Nurse Practitioner Psychiatric/Mental Health | DX: F33.2 Major depressive disorder, recurrent severe without psychotic features (principal); F42.9 Obsessive-compulsive disorder, unspecified; F17.210 Nicotine dependence, cigarettes, uncomplicated; F43.12 Post-traumatic stress disorder, chronic; G47.00 Insomnia, unspecified | CPT/HCPCS: 99214 ==

== ENCOUNTER 2022-04-29 18:43 | Emergency (ER) | payer MEDICARE, MEDICAID, SELFPAY ==
[2022-04-29] VITALS (10 sets, daily range): BP systolic 72–206; BP diastolic 46–138; PULSE 52–151; RESP 14–18; O2SAT 96–100; BMI 41.1
--- NOTE | 2022-04-29 18:53 | XRR_ITS ---
PROCEDURE INFORMATION: Exam: XR Chest Exam date and time: 04/29/2022 7:13 PM Age: 61 years old Clinical indication: Device placement; Ett placement (vent status); Additional info: Post code, ett TECHNIQUE: Imaging protocol: Radiologic exam of the chest. Views: 1 view. COMPARISON: CR XR chest 1V portable [id number] 09/04/2021 1:06 PM FINDINGS: Tubes, catheters and devices: Enteric tube enters into the stomach and outside the field of view. The endotracheal tube is in proper positioning 4.4 cm above the gallo. Lungs: No consolidation. Pleural spaces: No pleural effusion. No pneumothorax. Heart/Mediastinum: No cardiomegaly. Bones/joints: Right-sided 6th and 7th rib fractures. The rest of the visualized osseous structures are intact. XR/XR chest 1V portable [id number] IMPRESSION: 1. No acute cardiopulmonary abnormalities. 2. Proper positioning of support apparatus.
--- NOTE | 2022-04-29 18:55 | ED_ITS ---
HPI - CPR General: Chief Complaint: Shortness of Breath/Dyspnea Stated Complaint: Cant breathe Time Seen by Provider: 04/29/22 18:53 Limitations: altered mental status and other History of Present Illness: Ms. Turcios is a 61-year-old lady who, per chart review, has a history of PE, pulmonary hypertension, FRANCI, psychiatric disorder who presents to the emergency department in cardiac arrest. History is significantly limited and report given to me was that she has had shortness of breath. She was removed from private vehicle and placed on stretcher and upon being wheeled into resuscitation room she is pulseless and agonal he breathing. CPR initiated, see ED course below. History otherwise limited by acuity of condition and patient's unresponsive mental status. I spoke to the patient's neighbor/friend Hakan Elliott ([phone]) who provided some collateral history. Apparently she was over at her neighbor's house and then came outside and got into his car. She seems significantly short of breath and said she felt short of breath. He noticed that she smelled like she had lost continence and drove directly to the hospital. He was unaware that she was pulseless. He did provide phone number for patient's sister Bambi ([phone]). Patient's friend will take patient's purse and leave it with neighbor. Onset (ago): unknown Review of Systems General: Reports: ROS unobtainable due to medical condition and ROS unobtainable due to mental status [facility] ED PFSH: Medical History Chronic post-traumatic stress disorder Insomnia Major depressive disorder, recurrent severe without psychotic features Obsessive-compulsive disorder with good or fair insight Obstructive sleep apnea Psychiatric care Pulmonary embolism Surgical History History of tubal ligation Status post colonoscopy (03/17/21) Social History Smoking and tobacco status: current every day smoker cigarettes Packs smoked per day: 0.5 Years cigarettes smoked: 50 Quit status (tobacco): not considering quitting Second hand smoke exposure: No Smoking risk assessment/counseling performed?: Yes Alcohol intake: never Lives independently: Yes Household members: none Marital status: Current occupational status: disabled Pets and animals: No History of recent travel: No Current gender identity: Female Physical Exam Const: GENERAL APPEARANCE: in distress and ill appearing HENMT: COMMON NORMALS: normocephalic and atraumatic HEAD & SCALP: normocephalic and atraumatic THROAT: posterior oropharynx normal Eye: COMMON NORMALS: conjunctivae normal CONJUNCTIVA: Yes conjunctivae normal SCLERA: sclerae normal OTHER: Pupils appear fixed 3 mm bilateral. Neck/C-Spine: COMMON NORMALS: supple GENERAL: Yes trachea midline Resp: AUSCULTATION: wheezes and diminished lung sounds OTHER: Diminished breath sounds noted once patient placed on ventilator, patient initially with agonal respirations. Cardio: OTHER: No palpable pulse initially. Upon ROSC strong peripheral and central pulses GI: COMMON NORMALS: Soft to palpation PALPATION: Yes Soft to palpation and No Abdominal wall crepitus present Extremity: GENERAL: Yes normal exam except as noted and No edema Neuro: OTHER: Initially unresponsive. No purposeful movements upon ROSC. Procedures Central Line Placement Right IJ: Time Out Performed: Yes Patient Placed on Monitor/Pulse Ox: Yes MD Prep: mask, gown and gloves Central Line Prep: Chlorhexidine scrub and sterile drapes applied Local Anesthetic: lidocaine 1% Amount of anesthesia used (mL): 3 Ultrasound Used for Placement: Yes Central Line Lumen Inserted: triple Post Procedure: sutured in place, good blood return, all ports aspirated, flushed, capped and sterile dressing applied Post Procedure X-Ray: tip of catheter in good position Patient Tolerated Procedure: well and no complications Additional Comments: Patient unresponsive intubated sedated postcardiac arrest, unable to obtain consent, procedure performed under emergent circumstances given hypotension and need for additional access. Intubation Time out performed: No (Cardiac arrest, emergency circumstances) Laryngoscope: fiber optic video scope ET Tube Size: 8 ET Tube Uncuffed: No Tube Secured Depth (cm): 23 Tube Secured Location: lips Tube Placement Confirmation: visualized tube passing through cords, equal breath sounds bilaterally, no breath sounds over epigastrium and confirmation by capnometry Patient Tolerated Procedure: well (Cardiac arrest) Intubation Complications: none Course ED course: - Patient was seen and evaluated by me at bedside. - Initial exam as above. Pulseless and agonal with ashen appearance. CPR initiated. Initial rhythm PEA. - Short duration attempts at peripheral IV unsuccessful, IO placed - At approximate time of IO placement patient achieved ROSC with a wide-complex tachycardic rhythm that appears to be bundle branch block. - Initial EKG with A. fib with RVR and right bundle branch block. - After approximately 2 minutes of ROSC patient deteriorated into ventricular tachycardia. CPR restarted and 1 defibrillation at 120 J with resumption of CPR shortly thereafter. At next pulse check patient had ROSC. - Patient intubated as noted in procedure successfully - Initial vital signs patient noted to be hypertensive, adequate oxygenation with SPO2 in the 90s. End-tidal CO2 significantly elevated. - Labs and xrays personally interpreted by me - Chest x-ray interpreted at bedside notable for satisfactory endotracheal tube positioning approximately 6 cm from gallo with good aeration of lung fofana. - Given episode of ventricular tachycardia amiodarone bolus 150 mg over 10 minutes and subsequent drip of 1 mg/min ordered. Additional bolus of fentanyl for sedation followed by fentanyl and propofol drip with plan titration per RASS/overall clinical appearance. - Patient has not had purposeful movements/does not follow commands -Initial ABG 6.97/89.8/465. Directed RT to adjust ventilator settings, respiratory rate increased. - Labs notable for leukocytosis which may be reactive, mild hemoconcentration with normal prior baseline. Metabolic panel notable for hyperkalemia and evidence of metabolic stress likely related to lactic acidosis secondary to cardiac arrest. Mild transaminitis of uncertain clinical significance, may be developing shock liver. Initial troponin 16. Toxic ingestions negative. - for hyperkalemia plan to administer fluid bolus and 1 g calcium gluconate. - Imaging notable for negative head CT and neck CT. CT chest abdomen pelvis without evidence of acute pathology, patient has diagnosis of pulmonary pretension which likely explains abnormal pulmonary artery appearance on imaging. - Due to hypotension that developed in CT initially sedation paused though patient appeared uncomfortable with this and subsequently restarted. Amiodarone paused. Nor epi ordered. - Repeat EKG shows sinus bradycardia, no obvious ST elevation. - Repeat ABG improved pH 7.26/PCO2 57.6/PO2 481. Plan to titrate down oxygen FiO2. - Upon serial reexamination after treatment the patient was similar. Patient d id spontaneously open her eyes though did not follow commands. Moves all extremities spontaneously. - Small amount UOP with fluid bolus, appears grossly normal. - Based on patient history, evaluation, and testing as interpreted the most likely cause of the patient's condition is cardiac arrest of uncertain etiology though likely primary respiratory arrest leading to cardiac arrest. - Unfortunately we do not have ICU bed availability at our facility and therefore patient requires transfer - Patient accepted by Dr. Jennings at [facility] hospital. Given critical nature of patient condition she requires expeditious high-level care transfer to accepting facility. Note: Click bubbles or prepopulated fofana in note writing are used for assistance with data collection and billing and are inherently more limited than narrative and other text portions of this note. Please use narrative for additional clinical history and defer to narrative/free test for any case of contradictory information. If information appears in only free text or click bubble it should be considered present or absent as reported. Please contact note keno writer / runner for clarifications of clinical information or contradictory information. MDM is a brief summary, contradictory or erroneous seeming information should be clarified and full note should be reviewed. Vital Signs: Vital signs: Vital Signs Pulse Rate 71 04/29/22 23:41 Respiratory Rate 18 04/29/22 23:41 Blood Pressure 107/71 04/29/22 23:41 Pulse Oximetry 96 04/29/22 23:41 Oxygen Delivery Me thod 04/29/22 22:40 Fraction of Inspir ed Oxygen 100 04/29/22 22:04 MDM - Cardiac Arrest/CPR Medical Decision Making 61-year-old lady presenting to the emergency department in cardiac arrest. Unc lear etiology though suspected to be respiratory failure. Initial rhythm PEA. Obtained ROSC x1 with high-quality CPR for approximately 4 minutes and [id number] ventilation. Subsequently patient went into ventricular tachycardia which was defibrillated and ROSC obtained again after another 2 m inutes approximately of CPR. Patient intubated and CVC placed. Though patient initially hypertensive now requiring nor epi. Best neuro exam involves movement of upper and lower extremities, opens eyes spontaneously, does not follow commands. GCS 9T. Unfortunately we do not have ICU bed availability and therefore patient requires transfer. Family updated via telephone and at bedside upon their arrival. Transferred to [facility] and left ER in critical but satisfactory condition. Medical Records I reviewed the patient's medical records. Lab Data I reviewed the patient's lab results. : 04/29/22 18:50 04/29/22 18:50 Radiology Impressions Cervical Spine CT 04/29/22 19:06 IMPRESSION: No acute findings. Chest/Abdomen/Pelvis CT 04/29/22 19:06 IMPRESSION: 1. Moderate emphysematous changes of the lungs. 2. Dilation of the pulmonary arterial trunk suggestive of pulmonary hypertension in the appropriate clinical setting. IMPRESSION: No acute findings. COMMENTS: Consistent with the [employer]'s Incidental Findings Committee white paper (J Am Liana Radiol 2018): Any incidental renal lesion less than 1 cm or classified as too small to characterize, or any incidental cystic renal lesion characterized as simple-appearing, is likely benign. No follow-up imaging is recommended for these lesions per consensus recommendations based on imaging criteria. Head CT 04/29/22 19:06 IMPRESSION: No acute intracranial abnormality. Chest X-Ray 04/29/22 20:50 IMPRESSION: Interval placement of a right IJ central venous catheter. Laboratory Results WBC 18.0 10^3/uL (4.0-10.0) H 04/29/22 18:50 RBC 5.17 10^6/uL (4.1-5.3) 04/29/22 18:50 Hgb 15.4 g/dL (11.5-15.3) H 04/29/22 18:50 Hct 53.8 % (37.0-47.0) H 04/29/22 18:50 MCV 104.1 fl (81-99) H 04/29/22 18:50 MCH 29.8 pg (28.0-34.0) 04/29/22 18:50 MCHC 28.6 g/dL (30.0-36.0) L 04/29/22 18:50 RDW 13.1 % (12.1-15.1) 04/29/22 18:50 Plt Count 220 10^3/cmm (130-400) 04/29/22 18:50 MPV 12.5 fL (7.4-10.4) H 04/29/22 18:50 Neut % (Auto) 66.1 % 04/29/22 18:50 Lymph % (Auto) 23.2 % 04/29/22 18:50 Gaines % (Auto) 6.9 % 04/29/22 18:50 Eos % (Auto) 0.1 % 04/29/22 18:50 Baso % (Auto) 0.5 % 04/29/22 18:50 Neut # (Auto) 11.90 10^3/uL (1.8-7.7) H 04/29/22 18:50 Lymph # (Auto) 4.2 10^3/uL (0.8-4.8) 04/29/22 18:50 Gaines # (Auto) 1.3 10^3/uL (0.2-0.9) H 04/29/22 18:50 Eos # (Auto) 0.0 10^3/uL (0.0-0.8) 04/29/22 18:50 Baso # (Auto) 0.1 10^3/uL (0.0-0.1) 04/29/22 18:50 Nucleated RBC % (auto) 0.3 % 04/29/22 18:50 Nucleated RBCs # 0.1 /100WBC 04/29/22 18:50 PT 15.10 SECONDS (12.1-14.9) H 04/29/22 18:50 INR 1.16 (0.8-1.2) 04/29/22 18:50 APTT 20.3 SECONDS (23.9-36.7) L 04/29/22 18:50 Specimen Type Arterial 04/29/22 21:48 Sample Site Radial, left 04/29/22 21:48 ABG pH 7.27 (7.35-7.45) L 04/29/22 21:48 ABG pCO2 57.6 mmHg (35-45) H 04/29/22 21:48 ABG pO2 481.0 mmHg (80.0-100.0) H 04/29/22 21:48 ABG HCO3 26.1 mmol/L (22-26) H 04/29/22 21:48 ABG O2 Saturation 99.4 04/29/22 19:13 ABG Base Excess -2.0 mmol/L (-2.0-2.0) 04/29/22 21:48 Jordon Test Pos 04/29/22 21:48 A-a O2 Gradient 18.2 mmHg (5-10) H 04/29/22 19:13 Hematocrit 44.5 % (37-47) 04/29/22 21:48 Hgb O2 Saturation 93.1 % (95-100) L 04/29/22 19:13 Carboxyhemoglobin 5.6 %THgb (0.4-20.1) 04/29/22 19:13 Methemoglobin 0.8 % (0.4-1.5) 04/29/22 19:13 Total Hemoglobin 14.9 g/dL (12-16) 04/29/22 19:13 Sodium 141.0 mmol/L (131-143) 04/29/22 19:13 Potassium 6.7 mmol/L (3.5-5.0) H 04/29/22 19:13 Glucose 381.0 mg/dL (70-115) H 04/29/22 19:13 Ionized Calcium 1.2 mmol/L (1.1-1.4) 04/29/22 19:13 O2 Delivery Device Vent 04/29/22 21:48 FiO2 100.0 % 04/29/22 21:48 PEEP 5.0 cmH20 04/29/22 21:48 Engagement Quality Consultant ID Walci 04/29/22 21:48 Sodium 143 mmol/L (136-145) 04/29/22 18:50 Potassium 6.2 mmol/L (3.5-5.1) H 04/29/22 18:50 Chloride 98 mmol/L (98-107) 04/29/22 18:50 Carbon Dioxide 18 mmol/L (22-29) L 04/29/22 18:50 Anion Gap 33.2 (5-19) H 04/29/22 18:50 BUN 22 mg/dL (6-20) H 04/29/22 18:50 Creatinine 1.1 mg/dL (0.5-0.9) H 04/29/22 18:50 GFR Calculation 50.8 mL/min (90-130) L 04/29/22 18:50 Glucose 285 mg/dL (65-115) H 04/29/22 18:50 POC Glucose 124 mg/dL (70-110) H 04/29/22 18:48 Calculated Osmolality 310 mOsm/kg (285-295) H 04/29/22 18:50 Lactic Acid 15.2 mmol/L (0.5-2.2) H* 04/29/22 Unknown Lactic Acid (Sepsis) 2.1 mmol/L (0.5-2.2) 04/29/22 21:21 Lactate Cancelled 04/29/22 18:50 Calcium 9.5 mg/dL (8.5-10.5) 04/29/22 18:50 Total Bilirubin 0.3 mg/dL (0.15-1.2) 04/29/22 18:50 AST 34 U/L (0-32) H 04/29/22 18:50 ALT 35 U/L (0-33) H 04/29/22 18:50 Alkaline Phosphatase 84 U/L (35-105) 04/29/22 18:50 Troponin T Baseline 16 ng/L (0-10) H 04/29/22 18:50 Troponin T 120 Minute 78.64 ng/L (0-10) H 04/29/22 21:21 Delta Troponin T 62.64 ABS# (0-10) H* 04/29/22 21:21 NT-Pro-B Natriuret Pep 1304 pg/mL (0-125) H 04/29/22 18:50 Total Protein 7.3 g/dL (6.6-8.7) 04/29/22 18:50 Albumin 4.2 g/dL (3.5-5.2) 04/29/22 18:50 Globulin 3.1 g/dL (1.3-4.6) 04/29/22 18:50 TSH 2.90 uIU/mL (0.27-4.20) 04/29/22 18:50 HCG, Qual Cancelled 04/29/22 Unknown Salicylates < 0.3 mg/dL (3-10) L 04/29/22 18:50 Acetaminophen < 5.0 ug/mL (10-30) L 04/29/22 18:50 Ethyl Alcohol < 10 mg/dL (0-10) 04/29/22 18:50 Critical Care Time Critical Care Time: Critical Care Time: Yes Total Critical Care Time: 110 Attestation: Due to a high probability of clinically significant, possibly life threatening deterioration, the patient required my highest level of attention and preparedness to intervene emergently and I personally spent this critical care time directly and personally managing the patient. This critical care time included obtaining a history; examining the patient; pulse oximetry; ordering a nd review of laboratory and imaging studies; arranging urgent treatment with development of a management plan; evaluation of patient's response to treatment; frequent reassessment; and, discussions with other providers as applicable. It was exclusive of separately billable procedures. Primary system involved is cardiorespiratory Discharge Plan Discharge Patient Disposition: Admitted As Inpatient Clinical Impression: Cardiac arrest, Acute respiratory failure with hypoxia and hypercapnia, Acute alteration in mental status, Tachyarrhythmia, Ventricular tachycardia, Leukocytosis, Acute kidney injury, Hyperkalemia, Acidosis, lactic, Transaminitis Condition: Stable Coding Level of Care Code ED Orthopedic Nurse for Chg Fwd Exam Detailed
--- NOTE | 2022-04-29 18:55 | ECG_ITS ---
[facility] Test Date: 2022-04-29 Pat Name: Anne Turcios Department: Room: Gender: Female [employer] Operator: : [id number] Requested By: Fareed Clements Order Number: [id number] Ethel MD: Kaushik Rogers M.D. Measurements Intervals Bixby Rate: 169 P: MN: QRS: 89 QRSD: 129 T: 25 QT: 258 QTc: 434 Interpretive Statements ATRIAL FIBRILLATION WITH RAPID VENTRICULAR RESPONSE WITH ABERRANT CONDUCTION OR VENTRICULAR PREMATURE COMPLEXES RIGHT BUNDLE BRANCH BLOCK [120+ ms QRS DURATION, UPRIGHT V1, 40+ ms S IN I/aVL/V4/V5/V6] Compared to ECG 11/06/2018 17:23:35 Aberrant conduction of supraventricular beat(s) now present Ventricular premature complex(es) now present Right bundle-branch block now present Sinus rhythm no longer present Electronically Signed On 04-30-2022 10:32:49 CDT by Kaushik Rogers M.D. [id number]
[2022-04-29] MEDS: fentaNYL 50 mcg/mL INJ 2mL 100 MCG IVP (19:02)
[2022-04-29 19:04] LABS: Basophils # 0.1 10^3/uL (0.0-0.1); Basophils % 0.5 %; Eosinophils % 0.1 %; Hematocrit 53.8 % (37.0-47.0); Hemoglobin 15.4 g/dL (11.5-15.3); Lymphocytes # 4.2 10^3/uL (0.8-4.8); Lymphocytes % 23.2 %; Mean Corpuscular HGB Conc 28.6 g/dL (30.0-36.0); Mean Corpuscular Hemoglobin 29.8 pg (28.0-34.0); Mean Corpuscular Volume 104.1 fl (81-99); Mean Platelet Volume 12.5 fL (7.4-10.4); Monocytes # 1.3 10^3/uL (0.2-0.9); Monocytes % 6.9 %; Neutrophils % 66.1 %; Nucleated Red Blood Cells # 0.1 /100WBC; Nucleated Red Blood Cells % 0.3 %; Platelet Count 220 10^3/cmm (130-400); Red Blood Count 5.17 10^6/uL (4.1-5.3); Red Cell Distribution Width 13.1 % (12.1-15.1)
--- NOTE | 2022-04-29 19:05 | PC.NURSE ---
Patient brought into the ER from [facility] when I arrived at 1838. CPR started at [address] Clements. Iv access attempted by myself and Ayad BHANDARI. IO per Tyree to right lower leg.
--- NOTE | 2022-04-29 19:06 | CTR_ITS ---
PROCEDURE INFORMATION: Exam: CT Chest Without Contrast; Diagnostic Exam date and time: 04/29/2022 7:54 PM Age: 61 years old Clinical indication: Other: Post code. Shortness of breath; Additional info: Post code, SOB, ? history TECHNIQUE: Imaging protocol: Diagnostic computed tomography of the chest without contrast. Radiation optimization: All CT scans at this facility use at least one of these dose optimization techniques: automated exposure control; mA and/or kV adjustment per patient size (includes targeted exams where dose is matched to clinical indication); or iterative reconstruction. COMPARISON: CT chest w con* [id number] 01/28/2021 2:39 PM RADIATION DOSE METRICS: Total DLP (mGy-cm): 1114.08 FINDINGS: Tubes, catheters and devices: Endotracheal tube in proper position above the gallo. Lungs: Suspected area of rounded atelectasis noted in the posteromedial right lung base with several punctate calcifications. Moderate centrilobular emphysematous changes of the lungs. No consolidation. Pleural spaces: Unremarkable. No pneumothorax. No pleural effusion. Heart: No coronary artery calcifications. No cardiomegaly. No pericardial effusion. Lymph nodes: Unremarkable. No enlarged lymph nodes. Vasculature: Dilation of the pulmonary arterial trunk up to 5.3 cm. Bones/joints: Anterior right 5th 6th and 7th rib fractures. Soft tissues: Unremarkable. PROCEDURE INFORMATION: Exam: CT Abdomen And Pelvis Without Contrast Exam date and time: 04/29/2022 7:54 PM Age: 61 years old Clinical indication: Other: Post code. Shortness of breath; Additional info: Post code, SOB, ? history TECHNIQUE: Imaging protocol: Computed tomography of the abdomen and pelvis without contrast. Radiation optimization: All CT scans at this facility use at least one of these dose optimization techniques: automated exposure control; mA and/or kV adjustment per patient size (includes targeted exams where dose is matched to clinical indication); or iterative reconstruction. COMPARISON: CT chest w con* [id number] 01/28/2021 2:39 PM RADIATION DOSE METRICS: Total DLP (mGy-cm): 1114.08 FINDINGS: Liver: Normal. No mass. Gallbladder and bile ducts: Normal. No calcified stones. No ductal dilation. Pancreas: Normal. No ductal dilation. Spleen: Normal. No splenomegaly. Adrenal glands: Normal. No mass. Kidneys and ureters: Peripelvic cysts. No hydronephrosis. Stomach and bowel: Enteric tube terminates in the stomach. No obstruction. No mucosal thickening. Appendix: No evidence of appendicitis. Intraperitoneal space: Unremarkable. No free air. No significant fluid collection. Vasculature: Unremarkable. No abdominal aortic aneurysm. Lymph nodes: Unremarkable. No enlarged lymph nodes. Urinary bladder: Deluca catheter noted within a decompressed bladder. Reproductive: Unremarkable as visualized. Bones/joints: No acute fracture. Soft tissues: Unremarkable. CT/[place] [id number] IMPRESSION: 1. Moderate emphysematous changes of the lungs. 2. Dilation of the pulmonary arterial trunk suggestive of pulmonary hypertension in the appropriate clinical setting. IMPRESSION: No acute findings. COMMENTS: Consistent with the [employer]'s Incidental Findings Committee white paper (J Am Liana Radiol 2018): Any incidental renal lesion less than 1 cm or classified as too small to characterize, or any incidental cystic renal lesion characterized as simple-appearing, is likely benign. No follow-up imaging is recommended for these lesions per consensus recommendations based on imaging criteria.
--- NOTE | 2022-04-29 19:06 | CTR_ITS ---
PROCEDURE INFORMATION: Exam: CT Head Without Contrast Exam date and time: 04/29/2022 7:46 PM Age: 61 years old Clinical indication: Other: Post cardiac arrest; Patient HX: Post code blue. Intubated. No further history. ; Additional info: AMS, cardiac arrest TECHNIQUE: Imaging protocol: Computed tomography of the head without contrast. Radiation optimization: All CT scans at this facility use at least one of these dose optimization techniques: automated exposure control; mA and/or kV adjustment per patient size (includes targeted exams where dose is matched to clinical indication); or iterative reconstruction. COMPARISON: No relevant prior studies available. RADIATION DOSE METRICS: Total DLP (mGy-cm): 1137.28 FINDINGS: Brain: No hemorrhage. No edema. No significant white matter disease. No mass effect. Cerebral ventricles: No ventriculomegaly. Paranasal sinuses: Visualized sinuses are unremarkable. No fluid levels. Mastoid air cells: Visualized mastoid air cells are well aerated. Bones/joints: Unremarkable. No acute fracture. Soft tissues: Unremarkable. CT/CT head wo con* [id number] IMPRESSION: No acute intracranial abnormality.
--- NOTE | 2022-04-29 19:06 | CTR_ITS ---
PROCEDURE INFORMATION: Exam: CT Cervical Spine Without Contrast Exam date and time: 04/29/2022 7:46 PM Age: 61 years old Clinical indication: Patient HX: Post code blue. Intubated. No further history. ; Additional info: AMS, cardiac arrest, ? bruising TECHNIQUE: Imaging protocol: Computed tomography of the cervical spine without contrast. Radiation optimization: All CT scans at this facility use at least one of these dose optimization techniques: automated exposure control; mA and/or kV adjustment per patient size (includes targeted exams where dose is matched to clinical indication); or iterative reconstruction. COMPARISON: CT chest w con* [id number] 01/28/2021 2:39 PM RADIATION DOSE METRICS: Total DLP (mGy-cm): 252.07 FINDINGS: Bones/joints: No acute fracture. Normal alignment. No significant disc protrusion. No severe spinal canal stenosis. Lungs: Emphysematous changes at the lung apices. Soft tissues: Unremarkable. CT/CT cervical spin wo con* [id number] IMPRESSION: No acute findings.
[2022-04-29 19:10] LABS: Glucose Point of Care 124 mg/dL (70-110)
[2022-04-29 19:16] LABS: INR 1.16 (0.8-1.2)
[2022-04-29 19:18] LABS: Partial Thromboplastin Time 20.3 SECONDS (23.9-36.7)
[2022-04-29] MEDS: propofol 1,000 MG/100 ML INJ 19.68 MG IV ×2 (19:20→22:16)
[2022-04-29 19:22] LABS: Alveolar-Arterial Oxygen Gradi 18.2 mmHg (5-10); Arterial Blood Gas Hematocrit 45.8 % (37-47); Base Excess ABG -12.6 mmol/L (-2.0-2.0); Blood Gas Allen Test Pos; Blood Gas Operator Identificat glc; Blood Gas Sample Site Radial, right; Blood Gas Sample Type Arterial; Carboxyhemoglobin 5.6 %THgb (0.4-20.1); HCO3 ABG 21.1 mmol/L (22-26); HGB O2 Sat 93.1 % (95-100); Ionized Calcium Level - ABG 1.2 mmol/L (1.1-1.4); Methemoglobin 0.8 % (0.4-1.5); Oxygen Device VENT; Oxygen Saturation ABG 99.4; Potassium Level - ABG 6.7 mmol/L (3.5-5.0); Total Hemoglobin 14.9 g/dL (12-16)
[2022-04-29 19:23] LABS: ABG PH Result 6.98 (7.35-7.45)
[2022-04-29 19:24] LABS: ABG PCO2 89.8 mmHg (35-45)
[2022-04-29 19:33] LABS: Troponin(5th) Baseline 16 ng/L (0-10)
[2022-04-29 19:35] LABS: Albumin Level 4.2 g/dL (3.5-5.2); Alkaline Phosphatase 84 U/L (35-105); Blood Urea Nitrogen 22 mg/dL (6-20); Calcium 9.5 mg/dL (8.5-10.5); Carbon Dioxide 18 mmol/L (22-29); Globulin 3.1 g/dL (1.3-4.6); Glomerular Filtration Rate 50.8 mL/min (90-130); Glucose 285 mg/dL (65-115); Total Bilirubin 0.3 mg/dL (0.15-1.2); Total Protein 7.3 g/dL (6.6-8.7)
[2022-04-29 19:36] LABS: Lactic Sepsis W/Reflex 15.2 mmol/L (0.5-2.2)
[2022-04-29 19:37] LABS: Acetaminophen < 5.0 ug/mL (10-30); Alcohol Level < 10 mg/dL (0-10); Salicylate < 0.3 mg/dL (3-10)
[2022-04-29 19:38] LABS: Alanine Aminotransferase 35 U/L (0-33)
[2022-04-29 19:55] LABS: Aspartate Amino Transferase 34 U/L (0-32); Osmolality Calculated 310 mOsm/kg (285-295); Sodium 143 mmol/L (136-145)
--- NOTE | 2022-04-29 20:00 | PC.PHAR ---
PT ARRIVED UNRESPONSIVE- UNABLE TO VERIFY MEDS- MEDICATION VERIFIED USING LAST FILLED ON EXTERNAL MED LIST
--- NOTE | 2022-04-29 20:50 | XRR_ITS ---
PROCEDURE INFORMATION: Exam: XR Chest Exam date and time: 04/29/2022 8:56 PM Age: 61 years old Clinical indication: Device placement; Picc; Additional info: R cvc placement TECHNIQUE: Imaging protocol: Radiologic exam of the chest. Views: 1 view. COMPARISON: CT chest abdpel [id number] 04/29/2022 7:54 PM FINDINGS: A right IJ central venous catheter has been placed, which terminates in the SVC. The ETT and orogastric tube appear stable in position. No change in the cardiopulmonary findings. No pneumothorax is seen. XR/XR chest 1V portable [id number] IMPRESSION: Interval placement of a right IJ central venous catheter.
[2022-04-29 20:57] LABS: Reflex Lactate Order REFLEX LACTIC ORDERD
--- NOTE | 2022-04-29 21:00 | ECG_ITS ---
[facility] Test Date: 2022-04-29 Pat Name: Anne Turcios Department: Room: Gender: Female Improvement Intern: : 1960 Requested By: Fareed Clements Order Number: [id number] Ethel MD: Kaushik Rogers M.D. Measurements Intervals [place] Rate: 56 P: 82 WA: 148 QRS: 83 QRSD: 100 T: 91 QT: 453 QTc: 439 Interpretive Statements SINUS BRADYCARDIA Compared to ECG 11/06/2018 17:23:35 Sinus rhythm no longer present Electronically Signed On 04-30-2022 10:41:59 CDT by Kaushik Rogers M.D. [email or web address] [email or web address] county hospitalKrave-N/store/OM/[id number]
[2022-04-29] MEDS: sodium chloride 0.9% 1,000 ML 999 ML IV (21:11)
[2022-04-29 21:30] LABS: Anion Gap 33.2 (5-19); Chloride 98 mmol/L (98-107); NT Pro B Type Natriuretic Pept 1304 pg/mL (0-125); Potassium 6.2 mmol/L (3.5-5.1)
[2022-04-29] MEDS: calcium gluconate 0.9% NaCL 1 GM/50 ML PREMIX IV (21:59)
[2022-04-29 22:00] LABS: ABG PCO2 57.6 mmHg (35-45); ABG PH Result 7.27 (7.35-7.45); Arterial Blood Gas Hematocrit 44.5 % (37-47); Blood Gas Allen Test Pos; Blood Gas Operator Identificat WALCI; Blood Gas Sample Site Radial, left; Blood Gas Sample Type Arterial; HCO3 ABG 26.1 mmol/L (22-26); Oxygen Device VENT
--- NOTE | 2022-04-29 22:05 | PC.NURSE ---
MEDICATIONS PREPARED FOR CPR FROM RSI BOX IN ROOM 11. MEDS INCLUDING: VECURONIUM, ETOMIDATE, AND EPINEPHRINE. MEDICATIONS WERE NOT ADMINISTERED PER PHYSICIAN. ALL 3 MEDICATIONS WASTED. CHARGE NURSE, POPPY MONTES RN, WITNESSED.
[2022-04-29] MEDS: atropine 0.1 mg/mL Syr 10 mL 0.5 MG IVP (22:36)
[2022-04-29 22:40] LABS: Lactic Acid level (Lactate) 2.1 mmol/L (0.5-2.2)
[2022-04-29 22:47] LABS: Troponin 5 2HR 78.64 ng/L (0-10)
[2022-04-29 23:03] LABS: Troponin 5 2HR Delta 62.64 ABS# (0-10)
--- NOTE | 2022-04-29 23:24 | PC.NURSE ---
THIS NURSE TOOK OVER CARE AT 1915. IT WAS REPORT TO THIS NURSE THAT CPR HAD BEEN PERFORMED AND ROSC HAS BEEN BEEN ACHIEVED. PATIENT INTUBATED. CARDIAC MONITORS IN PLACE. REYES PLACED. PATIENT MADE COMFORTABLE IN BED.
--- NOTE | 2022-04-29 23:37 | PC.NURSE ---
THIS NURSE IN ROOM WITH PHYSICIAN WHILE CENTRAL LINE PLACED.
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
--- NOTE | 2022-04-30 08:22 | PC.NURSE ---
At aprox 1835, while in the middle of triaging another patient. This nurse was interrupted by Anabelle ([facility]) who said that there is a lady in the parking lot that is turning blue. This nurse ran outside and found the patient in the passenger seat slumped over. This nurse noticed agonal breathing and had a thready pulse. This nurse yelled at the [facility] to grab a stretcher. This nurse stayed with the patient until the stretcher arrived. At that time Ran (HOUSE SUPERINTENDENT) and this nurse grabbed the patient and placed her on the stretcher. Then staff took her to Trauma 11 and started to work the code. This nurse helped at the beginning of the code then went back to triage at aprox 1855.
--- NOTE | 2022-04-30 09:29 | PC.NURSE ---
Per Ayad Mejias RN, Travel staff, unable to return to hospital to place note, this RN placed during phone conference. CPR in progress upon arrival to Rm 11, during second pulse check faint pulse noted, shockable rhythm per Dr Clements 130 j shock delivered to patient, CPR resumed, pulse checked - ROSC achieved at that time. Prior ordered medications were held per verbal order from Dr Clements. Recorder gave all documentation to the material handler 1st shift RN to place in chart. Report given from Ayad BHANDARI to Teagan Sheth RN
== END 2022-04-29 23:40 | disposition admitted as inpatient to this hospital (09) ==
PROVIDERS: Emergency Provider Emergency Medicine; PCP Nurse Practitioner Family
DX: I46.9 Cardiac arrest, cause unspecified (principal); J96.02 Acute respiratory failure with hypercapnia; J96.01 Acute respiratory failure with hypoxia; R41.82 Altered mental status, unspecified; I47.2 Ventricular tachycardia; D72.829 Elevated white blood cell count, unspecified; N17.9 Acute kidney failure, unspecified; E87.5 Hyperkalemia; E87.2 Acidosis; R74.01 Elevation of levels of liver transaminase levels
CPT/HCPCS: 36415; 36416; 36600; 51702; 70450; 71045; 71250; 72125; 74176; 80051; 80053; 80307; 82330; 82803; 82805; 82962; 83605; 83880; 84443; 84484; 85025; 85610; 85730; 87040; 93005; 94002; 94799; 96365; 96366; 96367; 96375; 99291; 99292; C1751; J0282; J0461; J0610; J2704; J3010; J7030; J7060

== ENCOUNTER 2022-05-26 03:41 | Observation (INO) | payer MEDICARE, MEDICAID, SELFPAY ==
[2022-05-26] VITALS (23 sets, daily range): BP systolic 114–158; BP diastolic 61–85; PULSE 66–96; RESP 15–32; TEMP 36.4–37.7; O2SAT 84–100; BMI 33.5
--- NOTE | 2022-05-26 03:44 | W.ED.SOB ---
HPI - SOB/Dyspnea General: Chief Complaint: Shortness of Breath/Dyspnea Stated Complaint: SOB Time Seen by Provider: 05/26/22 03:43 Limitations: other History of Present Illness: HPI Narrative: Ms. Turcios is a 62-year-old lady with presentation on 04/29 for cardiac arrest presenting to the emergency department for shortness of breath. Patient is somewhat vague historian reports a few day history of worsening shortness of breath. Intensity symptoms is moderate to severe. Course is worsened. Possible recent diagnosis of pneumonia. Patient found to be hypoxemic on room air and required additional supplemental oxygen. Patient remains hypoxemic despite supplemental oxygen. No other specific changes in health, exacerbating, or alleviating factors identified. Onset (ago): day(s) Context: recent illness Severity: moderate Review of Systems General: Reports: 10 or more systems reviewed and unremarkable except in HPI and below PFSH ED PFSH: Medical History Chronic post-traumatic stress disorder Insomnia Major depressive disorder, recurrent severe without psychotic features Obsessive-compulsive disorder with good or fair insight Obstructive sleep apnea Psychiatric care Pulmonary embolism Surgical History History of tubal ligation Status post colonoscopy (03/17/21) Social History Smoking and tobacco status: current every day smoker cigarettes Packs smoked per day: 0.5 Years cigarettes smoked: 50 Quit status (tobacco): not considering quitting Second hand smoke exposure: No Smoking risk assessment/counseling performed?: Yes Alcohol intake: never Lives independently: Yes Household members: none Marital status: Current occupational status: disabled Pets and animals: No History of recent travel: No Current gender identity: Female Physical Exam Const: COMMON NORMALS: alert GENERAL APPEARANCE: cooperative, well developed and ill appearing (somehwat) HENMT: COMMON NORMALS: normocephalic and atraumatic HEAD & SCALP: normocephalic and atraumatic THROAT: posterior oropharynx normal Eye: COMMON NORMALS: conjunctivae normal CONJUNCTIVA: Yes conjunctivae normal SCLERA: sclerae normal Neck/C-Spine: COMMON NORMALS: supple GENERAL: Yes trachea midline Resp: EFFORT & INSPECTION: Yes tachypneic AUSCULTATION: diminished lung sounds Cardio: COMMON NORMALS: regular rate and regular rhythm RATE: regular rate RHYTHM: regular rhythm GI: COMMON NORMALS: Soft to palpation PALPATION: Yes Soft to palpation and No Tenderness to palpation present (GI) Extremity: GENERAL: Yes normal exam except as noted and Yes edema Neuro: COMMON NORMALS: moves all extremities SENSORIUM/ORIENTATION: Yes alert and No Orientation impaired Psych: COMMON NORMALS: mental status grossly normal and Normal thought process present THOUGHT PROCESS: Normal thought process present Course ED course: - Patient was seen and evaluated by me at bedside - Patient placed on cardiac monitors, IV access obtained - Initial evaluation notable for exam as above. Patient hypoxemic on supplemental oxygen with evidence of respiratory distress requiring additional supplemental oxygen. BiPAP ordered. - Labs and xrays personally interpreted by me. EKG with nonspecific ST segment abnormalities, so degree of limited interpretation secondary to baseline wander due to respiratory distress. -Steroids, RT treatment, empiric antibiotics given recent history ordered. - Labs notable for no leukocytosis, macrocytic anemia. Metabolic panel with no acute electrolyte derangement requiring intervention. Delta troponin is negative. Negative COVID. ABG with compensation however hypercapnia and hypoxemia noted - Imaging notable for bibasilar opacities worse compared to prior, no pneumothorax - Upon serial reexamination after treatment the patient was improved with BiPAP - Based on patient history, evaluation, and testing as interpreted the most likely cause of the patient's condition is acute on chronic hypoxic respiratory failure secondary to infection - The results of ED evaluation were discussed with the patient including plan for admission due to requirement for level of care not available if discharged to prevent significant worsening/deterioration. - Admitting service was contacted and Dr Ramos with the hospital service agreed to admit the patient - Patient was admitted without further deterioration or significant events. Note: Click bubbles or prepopulated fofana in note writing are used for assistance with data collection and billing and are inherently more limited than narrative and other text portions of this note. Please use narrative for additional clinical history and defer to narrative/free test for any case of contradictory information. If information appears in only free text or click bubble it should be considered present or absent as reported. Please contact note senior underwriter for clarifications of clinical information or contradictory information. MDM is a brief summary, contradictory or erroneous seeming information should be clarified and full note should be reviewed. Vital Signs: Vital signs: Vital Signs Temperature 98.9 F 05/28/22 11:44 Pulse Rate 72 05/28/22 11:49 Respiratory Rate 16 05/28/22 11:44 Blood Pressure 167/87 05/28/22 11:44 Pulse Oximetry 85 L 05/28/22 13:16 Oxygen Delivery Me thod 05/28/22 11:44 Oxygen Flow Rate 4 05/28/22 13:16 Fraction of Inspir ed Oxygen 36 05/28/22 05:54 MDM - SOB/Dyspnea Medical Decision Making 62-year-old lady with recent history of cardiac arrest presenting in respiratory distress. Likely etiology being pneumonia and COPD exacerbation. Admitted on BiPAP. Medical Records I reviewed the patient's medical records. Lab Data I reviewed the patient's lab results. : 05/28/22 04:54 05/28/22 04:54 Labs/Radiology: Radiology Impressions Chest X-Ray 05/26/22 03:46 IMPRESSION: COPD, interstitial disease, and bibasilar airspace disease. Laboratory Results WBC 5.8 10^3/uL (4.0-10.0) 05/26/22 04:40 Corrected WBC Cancelled 05/26/22 03:57 RBC 3.36 10^6/uL (4.1-5.3) L 05/26/22 04:40 Hgb 10.3 g/dL (11.5-15.3) L 05/26/22 04:40 Hct 34.5 % (37.0-47.0) L 05/26/22 04:40 MCV 102.7 fl (81-99) H 05/26/22 04:40 MCH 30.7 pg (28.0-34.0) 05/26/22 04:40 MCHC 29.9 g/dL (30.0-36.0) L 05/26/22 04:40 RDW 14.6 % (12.1-15.1) 05/26/22 04:40 Plt Count 132 10^3/cmm (130-400) 05/26/22 04:40 MPV 10.5 fL (7.4-10.4) H 05/26/22 04:40 Gran % Cancelled 05/26/22 03:57 Neut % (Auto) 80.8 % 05/26/22 04:40 Lymph % (Auto) 7.3 % 05/26/22 04:40 Blaine % (Auto) 7.5 % 05/26/22 04:40 Eos % (Auto) 3.5 % 05/26/22 04:40 Baso % (Auto) 0.2 % 05/26/22 04:40 Neut # (Auto) 4.65 10^3/uL (1.8-7.7) 05/26/22 04:40 Lymph # (Auto) 0.4 10^3/uL (0.8-4.8) L 05/26/22 04:40 Blaine # (Auto) 0.4 10^3/uL (0.2-0.9) 05/26/22 04:40 Eos # (Auto) 0.2 10^3/uL (0.0-0.8) 05/26/22 04:40 Baso # (Auto) 0.0 10^3/uL (0.0-0.1) 05/26/22 04:40 Absolute Gran (auto) Cancelled 05/26/22 03:57 Nucleated RBC % (auto) 0 % 05/26/22 04:40 Nucleated RBCs # 0.0 /100WBC 05/26/22 04:40 Specimen Type Arterial 05/26/22 03:46 Sample Site Radial, right 05/26/22 03:46 ABG pH 7.35 (7.35-7.45) 05/26/22 03:46 ABG pCO2 72.1 mmHg (35-45) H* 05/26/22 03:46 ABG pO2 76.9 mmHg (80.0-100.0) L 05/26/22 03:46 ABG HCO3 40.1 mmol/L (22-26) H 05/26/22 03:46 ABG Base Excess 12.2 mmol/L (-2.0-2.0) H 05/26/22 03:46 Jordon Test Pos 05/26/22 03:46 Hematocrit 31.6 % (37-47) L 05/26/22 03:46 O2 Delivery Device Bipap 05/26/22 03:46 FiO2 40.0 % 05/26/22 03:46 Manager Bakery ID [email or web address] 05/26/22 03:46 Sodium 143 mmol/L (136-145) 05/26/22 03:57 Potassium 4.0 mmol/L (3.5-5.1) 05/26/22 03:57 Chloride 98 mmol/L (98-107) 05/26/22 03:57 Carbon Dioxide 36 mmol/L (22-29) H 05/26/22 03:57 Anion Gap 13.0 (5-19) 05/26/22 03:57 BUN 13 mg/dL (8-23) 05/26/22 03:57 Creatinine 0.4 mg/dL (0.5-0.9) L 05/26/22 03:57 GFR Calculation 162.8 mL/min (90-130) H 05/26/22 03:57 Glucose 122 mg/dL (65-115) H 05/26/22 03:57 Calculated Osmolality 297 mOsm/kg (285-295) H 05/26/22 03:57 Lactic Acid 0.7 mmol/L (0.5-2.2) 05/26/22 03:57 Calcium 9.3 mg/dL (8.5-10.5) 05/26/22 03:57 Total Bilirubin 0.4 mg/dL (0.15-1.2) 05/26/22 03:57 AST 6 U/L (0-32) 05/26/22 03:57 ALT 7 U/L (0-33) 05/26/22 03:57 Alkaline Phosphatase 110 U/L (35-105) H 05/26/22 03:57 Troponin T Baseline 28 ng/L (0-10) H 05/26/22 03:57 Troponin T 120 Minute 25.84 ng/L (0-10) H 05/26/22 05:39 Delta Troponin T -2.16 ABS# (0-10) L 05/26/22 05:39 C-Reactive Protein 107.8 mg/L (0.0-4.9) H 05/26/22 03:57 NT-Pro-B Natriuret Pep 627 pg/mL (0-125) H 05/26/22 03:57 Total Protein 6.2 g/dL (6.6-8.7) L 05/26/22 03:57 Albumin 3.2 g/dL (3.5-5.2) L 05/26/22 03:57 Globulin 3.0 g/dL (1.3-4.6) 05/26/22 03:57 Procalcitonin 0.12 ng/mL (0-0.5) 05/26/22 03:57 Coronavirus 229E (PCR) Not detected (NOT DETECT) 05/26/22 03:50 SARS-CoV-2 (PCR) Not detected (NOT DETECT) 05/26/22 03:50 Critical Care Time Critical Care Time: Critical Care Time: Yes Total Critical Care Time: 45 Attestation: Due to a high probability of clinically significant, possibly life threatening deterioration, the patient required my highest level of attention and preparedness to intervene emergently and I personally spent this critical care time directly and personally managing the patient. This critical care time included obtaining a history; examining the patient; pulse oximetry; ordering and review of laboratory and imaging studies; arranging urgent treatment with development of a management plan; evaluation of patient's response to treatment; frequent reassessment; and, discussions with other providers as applicable. It was exclusive of separately billable procedures. Discharge Plan Discharge Patient Disposition: Admitted As Inpatient Admit Provider: Gianfranco Ramos Clinical Impression: Acute on chronic respiratory failure with hypoxia and hypercapnia, Respiratory distress, Pneumonia, Acute exacerbation of chronic obstructive pulmonary disease Condition: Serious Discharge Diet: Cardiac Discharge Activity: Oxygen as instructed and Cpap/Bipap as instructed Coding Level of Care Code ED Thimble Press Operator for Susan Herring
--- NOTE | 2022-05-26 03:46 | XRR_ITS ---
PROCEDURE INFORMATION: Exam: XR Chest Exam date and time: 05/26/2022 4:20 AM Age: 62 years old Clinical indication: Shortness of breath; Patient HX: SOB with hypoxia. On bipap. TECHNIQUE: Imaging protocol: Radiologic exam of the chest. Views: 1 view. COMPARISON: CR (CHEST, ) 04/29/2022 8:56 PM FINDINGS: Lungs: COPD, interstitial disease, and bibasilar airspace disease. Pleural spaces: Small suspected left pleural effusion. Heart/Mediastinum: Borderline cardiomegaly. Central pulmonary artery enlargement. Bones/joints: Osteopenia and mild degenerative change. Other findings: Interval removal of support lines. XR/XR chest 1V portable [id number] IMPRESSION: COPD, interstitial disease, and bibasilar airspace disease.
--- NOTE | 2022-05-26 03:56 | ECG_ITS ---
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 Measurements Intervals [place] Rate: 87 P: 78 SD: 140 QRS: 77 QRSD: 102 T: 89 QT: 361 QTc: 434 Interpretive Statements SINUS RHYTHM ST segments can not be accurately assessed because of baseline artifact Compared to ECG 04/29/2022 21:00:48 T-wave abnormality now present Sinus bradycardia no longer present Electronically Signed On 05-27-2022 8:29:28 CDT by Kaushik Rogers M.D. [id number]
[2022-05-26 04:19] LABS: ABG PCO2 72.1 mmHg (35-45); ABG PH Result 7.35 (7.35-7.45); Arterial Blood Gas Hematocrit 31.6 % (37-47); Base Excess ABG 12.2 mmol/L (-2.0-2.0); Blood Gas Allen Test Pos; Blood Gas Sample Site Radial, right; Blood Gas Sample Type Arterial; HCO3 ABG 40.1 mmol/L (22-26); Oxygen Device BIPAP; PO2 ABG 76.9 mmHg (80.0-100.0)
[2022-05-26 04:24] LABS: Lactic Sepsis W/Reflex 0.7 mmol/L (0.5-2.2)
[2022-05-26 04:28] LABS: Troponin(5th) Baseline 28 ng/L (0-10)
[2022-05-26 04:53] LABS: Basophils % 0.2 %; Eosinophils # 0.2 10^3/uL (0.0-0.8); Eosinophils % 3.5 %; Hematocrit 34.5 % (37.0-47.0); Hemoglobin 10.3 g/dL (11.5-15.3); Lymphocytes # 0.4 10^3/uL (0.8-4.8); Lymphocytes % 7.3 %; Mean Corpuscular HGB Conc 29.9 g/dL (30.0-36.0); Mean Corpuscular Hemoglobin 30.7 pg (28.0-34.0); Mean Corpuscular Volume 102.7 fl (81-99); Mean Platelet Volume 10.5 fL (7.4-10.4); Monocytes # 0.4 10^3/uL (0.2-0.9); Monocytes % 7.5 %; Neutrophils # 4.65 10^3/uL (1.8-7.7); Neutrophils % 80.8 %; Nucleated Red Blood Cells % 0 %; Platelet Count 132 10^3/cmm (130-400); Red Blood Count 3.36 10^6/uL (4.1-5.3); Red Cell Distribution Width 14.6 % (12.1-15.1); White Blood Count 5.8 10^3/uL (4.0-10.0)
[2022-05-26 05:15] LABS: NT Pro B Type Natriuretic Pept 627 pg/mL (0-125); Procalcitonin 0.12 ng/mL (0-0.5)
[2022-05-26 05:26] LABS: Alanine Aminotransferase 7 U/L (0-33); Albumin Level 3.2 g/dL (3.5-5.2); Alkaline Phosphatase 110 U/L (35-105); Aspartate Amino Transferase 6 U/L (0-32); Blood Urea Nitrogen 13 mg/dL (8-23); C Reactive Protein 107.8 mg/L (0.0-4.9); Calcium 9.3 mg/dL (8.5-10.5); Carbon Dioxide 36 mmol/L (22-29); Chloride 98 mmol/L (98-107); Glomerular Filtration Rate 162.8 mL/min (90-130); Glucose 122 mg/dL (65-115); Osmolality Calculated 297 mOsm/kg (285-295); Sodium 143 mmol/L (136-145); Total Bilirubin 0.4 mg/dL (0.15-1.2); Total Protein 6.2 g/dL (6.6-8.7)
[2022-05-26 05:28] LABS: Creatinine Clr Calc Pharmacy 161.0287
[2022-05-26 05:44] LABS: Adenovirus Not Detected (NOT DETECT); Chlamydia Pneumoniae Not Detected (NOT DETECT); Coronavirus 229E,HKU1,NL63,OC4 Not Detected (NOT DETECT); Human Metapneumovirus Not Detected (NOT DETECT); Human Rhinovirus/Enterovirus Not Detected (NOT DETECT); Influenza A Not Detected (NOT DETECT); Influenza A H1 Not Detected (NOT DETECT); Influenza A H1-2009 Not Detected (NOT DETECT); Influenza A H3 Not Detected (NOT DETECT); Influenza B Not Detected (NOT DETECT); Mycoplasma Pneumoniae Not Detected (NOT DETECT); Parainfluenza Virus Type 1 Not Detected (NOT DETECT); Parainfluenza Virus Type 2 Not Detected (NOT DETECT); Parainfluenza Virus Type 3 Not Detected (NOT DETECT); Parainfluenza Virus Type 4 Not Detected (NOT DETECT); Respiratory Syncytial Virus A Not Detected (NOT DETECT); Respiratory Syncytial Virus B Not Detected (NOT DETECT); SARS-COV-2 Not Detected (NOT DETECT)
[2022-05-26] MEDS: morphine 4 mg/mL SDV 1 mL IVP (05:45)
[2022-05-26] MEDS: cefepime 2,000 MG in sodium chloride 0.9% (plus) 50 ML 100 MG IV (05:45)
[2022-05-26 06:12] LABS: Troponin 5 2HR 25.84 ng/L (0-10)
[2022-05-26 06:16] LABS: Troponin 5 2HR Delta -2.16 ABS# (0-10)
--- NOTE | 2022-05-26 06:20 | P.HP_ITS ---
Providers/Chief Complaint Primary Care Provider: HEAVEN Guajardo Chief Complaint: SOB History of Present Illness Anne Turcios is a 62 year old female with past medical history of COPD, pulmonary hypertension pulmonary embolism, obstructive sleep apnea, recent history of cardiac arrest, came in with chief complaint of shortness of breath Upon arrival in the ER she was worked up for above-mentioned complaint: Pertinent imaging studies: X-ray chest: COPD, interstitial disease, and bibasilar airspace disease. Pertinent labs: WBC: 5.8 , H&H; 10/34 , PLT : 132 , serum sodium 143 , serum potassium 4 , BUN and serum creatinine 13 and 0.4 , CRP 107, procalcitonin 0.12, COVID PCR negative Troponin trend: 28 - 25 , proBNP 627 ABG: pH 7.35, PCO2 72, PO2 76, FiO2 40% Review of Systems General: Reports: 10 or more systems reviewed and unremarkable except in HPI and below Const: Denies: fever(s), chills, body aches, change in appetite or diaphoresis Card: Denies: palpitations, edema, swelling of feet/ankles, dyspnea on exertion, orthopnea or leg pain with exertion Resp: Reports: dyspnea; Denies: productive cough, wheezing or pain on inspiration GI: Denies: abdominal pain, nausea, vomiting, diarrhea or constipation : Denies: flank pain Musc: Denies: back pain, extremity pain or extremity swelling Neuro: Denies: headache(s), difficulty walking or confusion Medications/Allergies Home Medications Medication Instructions Recorded Confirmed Last Taken Type albuterol sulfate 90 mcg/actuation 2 puff inhalation Q4H PRN 10/28/19 05/26/22 03/16/21 History aerosol inhaler (ProAir HFA) Shortness Of Breath montelukast 10 mg tablet 10 mg PO BEDTIME@20 10/28/19 05/26/22 03/15/21 History (Singulair) oxygen-air delivery systems ##1 10/28/19 05/26/22 Unknown History atorvastatin 20 mg tablet 20 mg PO BEDTIME@12/09/20 05/26/22 03/16/21 History umeclidinium 62.5 mcg-vilanterol 1 inh inhalation DAILY #60 ea 01/05/22 05/26/22 Unknown Rx 25 mcg/actuation powdr for inhalation (Anoro Ellipta) quetiapine 100 mg tablet (Seroquel) 100 mg PO BEDTIME@04/29/22 05/26/22 Unknown History sertraline 100 mg tablet (Zoloft) 100 mg PO DAILY@04/29/22 05/26/22 Unknown History Lactobacillus rhamnosus GG 10 1 cap PO DAILY@07 05/26/22 05/26/22 Unknown History billion cell capsule (Culturelle) acetaminophen 325 mg tablet 650 mg PO Q4H PRN Pain 05/26/22 05/26/22 Unknown History albuterol sulfate 2.5 mg/3 mL 2.5 mg inhalation Q4H while awake 05/26/22 05/26/22 Unknown History (0.083 %) solution for nebulization for 5 days-hold inhaler while on nebs amino acids-protein hydrolysate 15 See Rx Instructions .Route .COMPLEX 05/26/22 05/26/22 Unknown History gram-101 kcal/30 mL oral liquid azithromycin 250 mg tablet 500 mg PO .ONE TIME DOSE 05/26/22 05/26/22 Unknown History azithromycin 250 mg tablet See Rx Instructions .Route .COMPLEX 05/26/22 05/26/22 Unknown History bisacodyl 10 mg rectal suppository 10 mg UT DAILY PRN Congestion 05/26/22 05/26/22 Unknown History (Dulcolax (bisacodyl)) docusate sodium 100 mg capsule 100 mg PO BID 05/26/22 05/26/22 Unknown History (Colace) famotidine 20 mg tablet (Pepcid) 20 mg PO BID 05/26/22 05/26/22 Unknown History hydrocodone 5 mg-acetaminophen 325 1 - 2 tab PO Q4H PRN Pain 05/26/22 05/26/22 Unknown History mg tablet ibuprofen 600 mg tablet 600 mg PO TID@07,11,16 05/26/22 05/26/22 Unknown History levothyroxine 175 mcg tablet 175 mcg PO DAILY@06 05/26/22 05/26/22 Unknown History lisinopril 10 mg tablet 10 mg PO DAILY@07 05/26/22 05/26/22 Unknown History magnesium hydroxide 400 mg/5 mL 30 ml PO DAILY PRN Constipation 05/26/22 05/26/22 Unknown History oral suspension (Milk of Magnesia) polyethylene glycol 3350 17 gram 17 g PO DAILY@07 05/26/22 05/26/22 Unknown History oral powder packet (Miralax) sodium phosphates 19 gram-7 118 ml UT DAILY PRN Constipation 05/26/22 05/26/22 Unknown History gram/118 mL enema (Fleet Enema) Allergies Allergy/AdvReac Type Severity Reaction Status Date / Time No Known Allergies Allergy Verified 05/26/22 08:07 PFSH Acute PFSH: Medical History Chronic post-traumatic stress disorder Insomnia Major depressive disorder, recurrent severe without psychotic features Obsessive-compulsive disorder with good or fair insight Obstructive sleep apnea Psychiatric care Pulmonary embolism Surgical History History of tubal ligation Status post colonoscopy (03/17/21) Social History Smoking and tobacco status: current every day smoker cigarettes Packs smoked per day: 0.5 Years cigarettes smoked: 50 Quit status (tobacco): not considering quitting Second hand smoke exposure: No Smoking risk assessment/counseling performed?: Yes Alcohol intake: never Lives independently: Yes Household members: none Marital status: Current occupational status: disabled Pets and animals: No History of recent travel: No Current gender identity: Female Vitals/I&O/Wt Last Vital Signs Temp 99.9 F H 05/26/22 03:43 Pulse 76 05/26/22 06:18 Resp 20 H 05/26/22 06:18 BP 128/65 05/26/22 06:18 Pulse Ox 96 05/26/22 06:18 O2 Del Method 05/26/22 04:55 O2 Flow Rate 7 05/26/22 03:43 FiO2 40 05/26/22 04:31 05/25/22 05/25/22 05/26/22 14:59 22:59 06:59 Intake Total 52 / 52 Balance 52 / 52 Weight last 48 hrs Weight 88.451 kg Physical Exam Const: COMMON NORMALS: patient oriented x3 HENMT: COMMON NORMALS: normocephalic and atraumatic HEAD & SCALP: normoce phalic and atraumatic EXTERNAL EAR: Yes external ears normal Eye: COMMON NORMALS: no scleral icterus GENERAL EYE: appearance normal, both eyes and all related structures Resp: OTHER: Diminished air entry b/l, minimal occasional wheezing Cardio: COMMON NORMALS: regular rate, regular rhythm, S1 normal heart sound present, S2 normal heart sound present, No gallops present (Cardio), No murmurs present (Cardio), No rub (Cardio) and Peripheral pulses 2+ throughout RATE: regular rate RHYTHM: regular rhythm HEART SOUNDS: S1 normal heart sound present and S2 normal heart sound present PERIPHERAL PULSES: Peripheral pulses 2+ throughout GI: COMMON NORMALS: Normal to inspection, nondistended, normoactive bowel sounds present, Soft to palpation, non-tender, No hepatosplenomegaly present and no masses AUSCULTATION: Yes normoactive bowel sounds PALPATION: Yes Soft to palpation and Yes No hepatosplenomegaly present RECTAL EXAM: deferred Extremity: COMMON NORMALS: no clubbing, cyanosis or edema and no pedal edema Neuro: COMMON NORMALS: patient oriented x3 Data : 05/26/22 04:40 05/26/22 03:57 Micro: Microbiology 05/26/22 05:39 Blood Culture - Preliminary Blood SPECIMEN COLLECTED 05/26/22 04:40 Blood Culture - Preliminary Blood SPECIMEN COLLECTED A&P Assessment and plan (1) Acute on chronic respiratory failure with hypoxia and hypercapnia: (2) Respiratory distress: (3) Pneumonia: (4) Acute exacerbation of chronic obstructive pulmonary disease: (5) Pulmonary embolism: Qualifiers: Acute cor pulmonale presence: unspecified Chronicity: unspecified Pulmonary embolism type: unspecified Qualified Code(s): I26.99 - Other pulmonary embolism without acute cor pulmonale (6) Pulmonary hypertension: (7) Obstructive sleep apnea: (8) Major depressive disorder, recurrent severe without psychotic features: Plan 62 year old female with past medical history of COPD, hypothyroidism, pulmonary hypertension pulmonary embolism, obstructive sleep apnea, recent history of cardiac arrest, came in with chief complaint of shortness of breath. Assessment: Respiratory failure with hypoxia and hypercapnia 2/2 COPD exacerbation, PNA Acute COPD exacerbation Pneumonia Pulmonary hypertension Pulmonary embolism History of A. fib Obstructive sleep apnea Morbid obesity Plan: Monitor ABG Monitor x-ray chest Follow blood culture Urine Legionella antigen Bacterial antigen panel Sputum gram stain and culture Currently on ceftriaxone and azithromycin DuoNebs Solu-Medrol 60 twice daily Continue BiPAP Continue anticoagulation with Eliquis Continue levothyroxine Attestations Medical Necessity Statement*: Patient needs to be in hospital for management of respiratory failure.Anticipated length of stay greater than 2 midnights. Time Spent in Patient Care: Greater than 35 minutes (>than 50% of time spent in counselling and/or direct pt care on unit) . 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
[2022-05-26] MEDS: acetaminophen 325 mg Tablet 650 MG PO (07:13)
[2022-05-26] MEDS: cefTRIAXone 1,000 MG in sodium chloride 0.9% (plus) 50 ML 100 MG IV (07:13)
[2022-05-26] MEDS: ipratropium-albuterol 3 mL Neb INHALATION ×4 (07:17→20:54)
--- NOTE | 2022-05-26 08:54 | PC.PHAR ---
PT IS FROM [facility] [phone] FELIZ NURSE AT [facility] STATES THE PT HASNT BEEN ON PRADAXA SINCE SHE WAS ADMITTED TO THEM ON 05/13/22- FELIZ STATES THE PT ONLY TOOK THE 500MG DOSE OF THE AZITHROMYCIN ON 05/25/22
[2022-05-26] MEDS: azithromycin 500 MG in sodium chloride 0.9% 250 ML 250 MG IV (09:35)
[2022-05-26] MEDS: levothyroxine 175 mcg Tablet PO (09:36)
[2022-05-26] MEDS: montelukast sodium 10 mg Tablet PO (09:36)
[2022-05-26] MEDS: apixaban 5 mg Tablet PO ×2 (09:36→18:08)
[2022-05-26 10:25] LABS: Troponin 5 6HR 22.11 ng/L (0-10)
[2022-05-26 10:27] LABS: Troponin 5 6HR Delta -5.89 ng/L (0-12)
--- NOTE | 2022-05-26 10:37 | ECG_ITS ---
[facility] Test Date: 2022-05-26 Pat Name: Anne Turcios Department: Room: 251 Gender: Female Mosaicist: : [id number] Requested By: Fareed Clements Order Number: [id number] Ethel MD: Kaushik Rogers M.D. Measurements Intervals [place] Rate: 67 P: 69 WV: 153 QRS: 52 QRSD: 102 T: 83 QT: 414 QTc: 439 Interpretive Statements SINUS RHYTHM POSSIBLE INFERIOR MYOCARDIAL INFARCTION , PROBABLY OLD [30 ms Q WAVE IN II/aVF] Compared to ECG 05/26/2022 03:56:04 Myocardial infarct finding now present T-wave abnormality no longer present Electronically Signed On 05-27-2022 8:20:27 CDT by Kaushik Rogers M.D. [id number]
--- NOTE | 2022-05-26 11:38 | PM.PN ---
Subjective Subjective: She is initially somewhat sluggish to respond but appears awake. Not sure if maybe she has some trouble hearing me Giurgius BiPAP, subsequently responds well, follows directions. States feeling slightly better. Coughing. At home normally on 2 L nasal cannula, has a CPAP for nighttime. Vitals/I&O/Wt Last Vital Signs Temp 97.6 F 05/26/22 08:00 Pulse 78 05/26/22 08:00 Resp 18 05/26/22 08:00 BP 139/85 05/26/22 08:00 Pulse Ox 97 05/26/22 08:00 O2 Del Method 05/26/22 08:00 O2 Flow Rate 7 05/26/22 03:43 FiO2 40 05/26/22 07:17 05/25/22 05/26/22 05/26/22 22:59 06:59 14:59 Intake Total 102 / 102 550 / 550 Balance 102 / 102 550 / 550 Weight last 48 hrs Weight 88.451 kg Physical Exam Const: COMMON NORMALS: patient oriented x3 and alert GENERAL APPEARANCE: cooperative NUTRITIONAL APPEARANCE: overweight ORIENTATION/CONSCIOUSNESS: Yes awake OTHER: BPAP HENMT: COMMON NORMALS: oropharynx normal Neck/C-Spine: COMMON NORMALS: no JVD Resp: COMMON NORMALS: normal respiratory effort AUSCULTATION: rhonchi and diminished lung sounds Cardio: COMMON NORMALS: no JVD, regular rhythm, S1 normal heart sound present, S2 normal heart sound present and No murmurs present (Cardio) RHYTHM: regular rhythm HEART SOUNDS: S1 normal heart sound present and S2 normal heart sound present GI: COMMON NORMALS: Normal to inspection, nondistended, normoactive bowel sounds present, Soft to palpation and non-tender PALPATION: Yes Soft to palpation Extremity: COMMON NORMALS: no joint enlargement and no pedal edema Neuro: COMMON NORMALS: patient oriented x3 and moves all extremities SENSORIUM/ORIENTATION: Yes alert Skin: COMMON NORMALS: no rashes or lesions noted GENERAL SKIN EXAM: no rashes or lesions noted Data : 05/26/22 04:40 05/26/22 03:57 Micro: Microbiology 05/26/22 05:39 Blood Culture - Preliminary Blood SPECIMEN COLLECTED 05/26/22 04:40 Blood Culture - Preliminary Blood SPECIMEN COLLECTED A&P Assessment and plan (1) Acute on chronic respiratory failure with hypoxia and hypercapnia: Severe COPD exacerbation. BiPAP support, wean off as tolerating. Target O2 saturation 88% or above. Avoid hyperoxia. Continue Solu-Medrol, breathing treatments. Ceftriaxone. Collect sputum culture if able to provide. (2) Acute exacerbation of chronic obstructive pulmonary disease: As above. (3) Pneumonia: Continue ceftriaxone, azithromycin. Follow-up urine bacterial antigens. Collect sputum culture and gram stain. (4) Respiratory distress: Improved. (5) Pulmonary embolism: Eliquis Qualifiers: Pulmonary embolism type: unspecified Chronicity: unspecified Acute cor pulmonale presence: unspecified Qualified Code(s): I26.99 - Other pulmonary embolism without acute cor pulmonale (6) Pulmonary hypertension: Chronically on 2 L nasal cannula (7) Obstructive sleep apnea: On CPAP nightly (8) Major depressive disorder, recurrent severe without psychotic features: Attestations Medical Necessity Statement*: Continue admission for assessment and management of respiratory failure with severe COPD exacerbation, pneumonia. Coding Level of Care Code Acute Community Board Member for [facility] Diagnoses Acute on chronic respiratory failure with hypoxia and hypercapnia J96.21; J96.22 Acute exacerbation of chronic obstructive pulmonary disease J44.1 Pneumonia J18.9 Respiratory distress R06.03 Pulmonary embolism I26.99 Pulmonary embolism type: unspecified Chronicity: unspecified Acute cor pulmonale presence: unspecified Pulmonary hypertension I27.20 Obstructive sleep apnea G47.33 Major depressive disorder, recurrent severe without psychotic features F33.2
[2022-05-26] MEDS: atorvastatin 40 mg Tablet 20 MG PO (20:30)
[2022-05-26] MEDS: HYDROcodone-acetaminophen 5-325 mg Tablet 1 TAB PO (20:30)
[2022-05-26] MEDS: quetiapine 100 mg Tablet PO (20:30)
[2022-05-27] VITALS (14 sets, daily range): BP systolic 134–172; BP diastolic 70–91; PULSE 56–88; RESP 16–26; TEMP 36.6–36.8; O2SAT 91–100
[2022-05-27] MEDS: HYDROcodone-acetaminophen 5-325 mg Tablet 1 TAB PO ×2 (01:26→05:45)
[2022-05-27] MEDS: cefTRIAXone 1,000 MG in sodium chloride 0.9% (plus) 50 ML 100 MG IV (05:44)
[2022-05-27] MEDS: sertraline 100 mg Tablet PO (06:27)
[2022-05-27 06:41] LABS: Basophils % 0.2 %; Hematocrit 29.8 % (37.0-47.0); Hemoglobin 8.9 g/dL (11.5-15.3); Lymphocytes # 0.4 10^3/uL (0.8-4.8); Lymphocytes % 6.3 %; Mean Corpuscular HGB Conc 29.9 g/dL (30.0-36.0); Mean Corpuscular Volume 100.3 fl (81-99); Mean Platelet Volume 10.8 fL (7.4-10.4); Monocytes # 0.2 10^3/uL (0.2-0.9); Monocytes % 3.1 %; Neutrophils # 4.96 10^3/uL (1.8-7.7); Neutrophils % 89.9 %; Nucleated Red Blood Cells % 0 %; Platelet Count 152 10^3/cmm (130-400); Red Blood Count 2.97 10^6/uL (4.1-5.3); Red Cell Distribution Width 13.9 % (12.1-15.1); White Blood Count 5.5 10^3/uL (4.0-10.0)
[2022-05-27 07:02] LABS: Alanine Aminotransferase 6 U/L (0-33); Albumin Level 3.1 g/dL (3.5-5.2); Alkaline Phosphatase 99 U/L (35-105); Anion Gap 13.6 (5-19); Aspartate Amino Transferase 6 U/L (0-32); Blood Urea Nitrogen 11 mg/dL (8-23); Calcium 9.2 mg/dL (8.5-10.5); Carbon Dioxide 33 mmol/L (22-29); Chloride 99 mmol/L (98-107); Creatinine Clr Calc Pharmacy 161.0287; Glomerular Filtration Rate 162.8 mL/min (90-130); Glucose 171 mg/dL (65-115); Osmolality Calculated 295 mOsm/kg (285-295); Potassium 4.6 mmol/L (3.5-5.1); Sodium 141 mmol/L (136-145); Total Bilirubin 0.3 mg/dL (0.15-1.2); Total Protein 6.1 g/dL (6.6-8.7)
[2022-05-27] MEDS: ipratropium-albuterol 3 mL Neb INHALATION ×4 (08:13→21:20)
[2022-05-27] MEDS: levothyroxine 175 mcg Tablet PO (08:25)
[2022-05-27] MEDS: azithromycin 500 MG in sodium chloride 0.9% 250 ML 250 MG IV (08:26)
[2022-05-27] MEDS: apixaban 5 mg Tablet PO ×2 (08:26→19:02)
[2022-05-27] MEDS: docusate sodium 100 mg Capsule PO ×2 (08:26→19:02)
[2022-05-27] MEDS: famotidine 20 mg Tablet PO ×2 (08:26→19:02)
[2022-05-27] MEDS: montelukast sodium 10 mg Tablet PO (08:26)
[2022-05-27] MEDS: HYDROcodone-acetaminophen 5-325 mg Tablet PO ×3 (11:03→19:47)
--- NOTE | 2022-05-27 11:05 | PC.NURSE ---
Medication: Hydrocodone-APAP 5-325 mg 1-2 tablets PO every 4 hours as needed for pain. Scanner issue with multiple attempts to scan pt and medication. 2 tablets of Hydrocodone-APAP 5-325 mg PO administered to pt for pain with a 8/10 rating.
--- NOTE | 2022-05-27 14:48 | P.PN_ITS ---
Subjective Subjective: She reports having chronic pain. States at home she takes 2 and sometimes for hydrocodone's at a time for chronic pain. Breathing states has been gradually getting better. She would like to advance diet. Vitals/I&O/Wt Last Vital Signs Temp 98.0 F 05/27/22 11:22 Pulse 76 05/27/22 11:52 Resp 18 05/27/22 11:52 BP 138/70 05/27/22 11:22 Pulse Ox 94 05/27/22 11:52 O2 Del Method 05/27/22 11:52 O2 Flow Rate 4 05/27/22 11:52 FiO2 36 05/27/22 01:11 05/26/22 05/27/22 05/27/22 22:59 06:59 14:59 Intake Total 120 / 920 0 / 920 780 / 780 Balance 120 / 920 0 / 920 780 / 780 Weight last 48 hrs Weight 88.451 kg Weight 88.451 kg Physical Exam Const: COMMON NORMALS: patient oriented x3 and alert GENERAL APPEARANCE: cooperative NUTRITIONAL APPEARANCE: overweight ORIENTATION/CONSCIOUSNESS: Yes awake HENMT: COMMON NORMALS: oropharynx normal Neck/C-Spine: COMMON NORMALS: no JVD Resp: COMMON NORMALS: normal respiratory effort AUSCULTATION: wheezes and diminished lung sounds Cardio: COMMON NORMALS: no JVD, regular rhythm, S1 normal heart sound present, S2 normal heart sound present and No murmurs present (Cardio) RHYTHM: regular rhythm HEART SOUNDS: S1 normal heart sound present and S2 normal heart sound present GI: COMMON NORMALS: Normal to inspection, nondistended, normoactive bowel sounds present, Soft to palpation and non-tender PALPATION: Yes Soft to palpation Extremity: COMMON NORMALS: no joint enlargement and no pedal edema Neuro: COMMON NORMALS: patient oriented x3 and moves all extremities SENSORIUM/ORIENTATION: Yes alert Skin: COMMON NORMALS: no rashes or lesions noted GENERAL SKIN EXAM: no rashes or lesions noted Data : 05/27/22 06:29 05/27/22 06:29 Micro: Microbiology 05/26/22 05:39 Blood Culture - Preliminary Blood NEGATIVE TO DATE 05/26/22 04:40 Blood Culture - Preliminary Blood NEGATIVE TO DATE 05/26/22 06:38 Legionella Urinary Antigen - Final Urine,Voided A&P Assessment and plan (1) Acute on chronic respiratory failure with hypoxia and hypercapnia: Today sounds a bit better, is weaned down off BiPAP, requiring 4 L nasal cannula oxygen. Continue for now at higher dose Solu-Medrol. Continue ceftriaxone, azithromycin, breathing treatments. Wean down oxygen support as tolerating. Target saturation 88-90 %. Advance diet. (2) Acute exacerbation of chronic obstructive pulmonary disease: (3) Pneumonia: Continue ceftriaxone, azithromycin. Sputum culture requested when able to provide. (4) Respiratory distress: Improving. (5) Pulmonary embolism: Anticoagulation. Qualifiers: Pulmonary embolism type: unspecified Chronicity: unspecified Acute cor pulmonale presence: unspecified Qualified Code(s): I26.99 - Other pulmonary embolism without acute cor pulmonale (6) Pulmonary hypertension: On chronic oxygen, 2 L (7) Obstructive sleep apnea: Has a CPAP at home (8) Major depressive disorder, recurrent severe without psychotic features: Attestations Medical Necessity Statement*: Continue admission for assessment and management of respiratory failure, severe exacerbation of COPD, and pneumonia. Coding Level of Care Code Acute Supervisor [employer] for [facility] Diagnoses Acute on chronic respiratory failure with hypoxia and hypercapnia J96.21; J96.22 Acute exacerbation of chronic obstructive pulmonary disease J44.1 Pneumonia J18.9 Respiratory distress R06.03 Pulmonary embolism I26.99 Pulmonary embolism type: unspecified Chronicity: unspecified Acute cor pulmonale presence: unspecified Pulmonary hypertension I27.20 Obstructive sleep apnea G47.33 Major depressive disorder, recurrent severe without psychotic features F33.2
[2022-05-27] MEDS: predniSONE 20 mg Tablet 60 MG PO (16:39)
[2022-05-27] MEDS: quetiapine 100 mg Tablet PO (19:48)
[2022-05-27] MEDS: atorvastatin 40 mg Tablet 20 MG PO (19:48)
[2022-05-28] VITALS (11 sets, daily range): BP systolic 164–170; BP diastolic 78–87; PULSE 51–74; RESP 12–18; TEMP 36.6–37.2; O2SAT 85–99
[2022-05-28 05:02] LABS: Basophils % 0.2 %; Hematocrit 29.4 % (37.0-47.0); Hemoglobin 9.1 g/dL (11.5-15.3); Lymphocytes # 0.3 10^3/uL (0.8-4.8); Lymphocytes % 6.4 %; Mean Corpuscular Hemoglobin 30.2 pg (28.0-34.0); Mean Corpuscular Volume 97.7 fl (81-99); Mean Platelet Volume 10.6 fL (7.4-10.4); Monocytes # 0.1 10^3/uL (0.2-0.9); Monocytes % 2.3 %; Neutrophils # 4.25 10^3/uL (1.8-7.7); Nucleated Red Blood Cells % 0 %; Platelet Count 154 10^3/cmm (130-400); Red Blood Count 3.01 10^6/uL (4.1-5.3); Red Cell Distribution Width 14.2 % (12.1-15.1); White Blood Count 4.7 10^3/uL (4.0-10.0)
[2022-05-28 05:26] LABS: Alanine Aminotransferase 7 U/L (0-33); Albumin Level 3.3 g/dL (3.5-5.2); Alkaline Phosphatase 96 U/L (35-105); Anion Gap 10.8 (5-19); Aspartate Amino Transferase 6 U/L (0-32); Blood Urea Nitrogen 13 mg/dL (8-23); Carbon Dioxide 34 mmol/L (22-29); Chloride 100 mmol/L (98-107); Globulin 2.8 g/dL (1.3-4.6); Glomerular Filtration Rate 162.8 mL/min (90-130); Glucose 207 mg/dL (65-115); Osmolality Calculated 296 mOsm/kg (285-295); Potassium 4.8 mmol/L (3.5-5.1); Sodium 140 mmol/L (136-145); Total Bilirubin 0.2 mg/dL (0.15-1.2); Total Protein 6.1 g/dL (6.6-8.7)
[2022-05-28 05:34] LABS: Creatinine Clr Calc Pharmacy 161.0287
[2022-05-28] MEDS: cefTRIAXone 1,000 MG in sodium chloride 0.9% (plus) 50 ML 100 MG IV (05:34)
[2022-05-28] MEDS: HYDROcodone-acetaminophen 5-325 mg Tablet PO ×2 (05:35→12:25)
[2022-05-28] MEDS: sertraline 100 mg Tablet PO (06:04)
[2022-05-28] MEDS: azithromycin 500 MG in sodium chloride 0.9% 250 ML 250 MG IV (06:07)
[2022-05-28] MEDS: ipratropium-albuterol 3 mL Neb INHALATION ×2 (08:02→11:48)
[2022-05-28] MEDS: apixaban 5 mg Tablet PO (08:35)
[2022-05-28] MEDS: montelukast sodium 10 mg Tablet PO (08:36)
[2022-05-28] MEDS: levothyroxine 175 mcg Tablet PO (08:36)
[2022-05-28] MEDS: docusate sodium 100 mg Capsule PO (08:36)
--- NOTE | 2022-05-28 12:08 | PM.DCS ---
Discharge Providers Date of Admission: 05/26/22 06:14 Date of Discharge: May 28, 2022 Attending Provider at Admission: Gianfranco Ramos MD Attending Provider at Discharge: Randal Shoemaker Primary Care Provider: HEAVEN Guajardo Diagnoses at Discharge Discharge Diagnosis (1) Acute on chronic respiratory failure with hypoxia and hypercapnia: Status: Acute (2) Acute exacerbation of chronic obstructive pulmonary disease: Status: Acute (3) Pneumonia: Status: Acute (4) Respiratory distress: Status: Acute (5) Pulmonary embolism: Status: Acute Qualifiers: Pulmonary embolism type: unspecified Chronicity: unspecified Acute cor pulmonale presence: unspecified Qualified Code(s): I26.99 - Other pulmonary embolism without acute cor pulmonale (6) Pulmonary hypertension: Status: Acute (7) Obstructive sleep apnea: Status: Acute (8) Major depressive disorder, recurrent severe without psychotic features: Status: Chronic Reason for Visit Reason for Visit: SOB Hospital Course Hospital Course 62 year old female with past medical history of COPD, hypothyroidism, pulmonary hypertension pulmonary embolism, obstructive sleep apnea, recent history of respiratory failure associated with cardiac arrest with residual neurologic deficits including severe vision loss, was admitted for assessment of management of acute on chronic respiratory failure with COPD exacerbation, required BiPAP support, received treatment with IV steroids, empiric antibiotic for COPD, but also with possible superimposed bacterial pneumonia with bibasilar airspace disease, here treated with ceftriaxone and azithromycin. Acute respiratory failure gradually resolved, she weaned off BiPAP support to nasal cannula, continues on 4 L, previous oxygen prescribed for 3 L nasal cannula. She states has been using 2 L. Also has a CPAP at home. As she is overall feeling better, and maintains oxygen well, she returns home to complete antibiotic course with cefdinir, azithromycin, as well as steroid taper with prednisone. Physical Exam Const: COMMON NORMALS: patient oriented x3 and alert GENERAL APPEARANCE: cooperative ORIENTATION/CONSCIOUSNESS: Yes awake HENMT: COMMON NORMALS: oropharynx normal Neck/C-Spine: COMMON NORMALS: no JVD Resp: COMMON NORMALS: normal respiratory effort and clear to auscultation bilaterally AUSCULTATION: clear to auscultation bilaterally Cardio: COMMON NORMALS: no JVD, regular rhythm, S1 normal heart sound present, S2 normal heart sound present and No murmurs present (Cardio) RHYTHM: regular rhythm HEART SOUNDS: S1 normal heart sound present and S2 normal heart sound present GI: COMMON NORMALS: Normal to inspection, nondistended, normoactive bowel sounds present, Soft to palpation and non-tender PALPATION: Yes Soft to palpation Extremity: COMMON NORMALS: no joint enlargement and no pedal edema Neuro: COMMON NORMALS: patient oriented x3 and moves all extremities SENSORIUM/ORIENTATION: Yes alert Skin: COMMON NORMALS: no rashes or lesions noted GENERAL SKIN EXAM: no rashes or lesions noted Discharge Data Studies Completed and Pending Completed Studies During Hospitalization Category Date Time Status XR chest 1V portable [id number] Stat Exams 05/26/22 03:46 Completed Pending at discharge Category Date Time Status Blood Culture Stat Lab 05/26/22 05:39 Results Complete Blood Count w/Auto AM LABS Lab 05/29/22 04:00 Ordered Comprehensive Metabolic Panel AM LABS Lab 05/29/22 04:00 Ordered Sputum Culture and Gram Stain Routine Lab 05/26/22 11:50 Uncollected Radiology Impressions Chest X-Ray 05/26/22 03:46 IMPRESSION: COPD, interstitial disease, and bibasilar airspace disease. Laboratory Results WBC 4.7 10^3/uL (4.0-10.0) 05/28/22 04:54 Corrected WBC Cancelled 05/26/22 03:57 RBC 3.01 10^6/uL (4.1-5.3) L 05/28/22 04:54 Hgb 9.1 g/dL (11.5-15.3) L 05/28/22 04:54 Hct 29.4 % (37.0-47.0) L 05/28/22 04:54 MCV 97.7 fl (81-99) 05/28/22 04:54 MCH 30.2 pg (28.0-34.0) 05/28/22 04:54 MCHC 31.0 g/dL (30.0-36.0) 05/28/22 04:54 RDW 14.2 % (12.1-15.1) 05/28/22 04:54 Plt Count 154 10^3/cmm (130-400) 05/28/22 04:54 MPV 10.6 fL (7.4-10.4) H 05/28/22 04:54 Gran % Cancelled 05/26/22 03:57 Neut % (Auto) 90.0 % 05/28/22 04:54 Lymph % (Auto) 6.4 % 05/28/22 04:54 Dale % (Auto) 2.3 % 05/28/22 04:54 Eos % (Auto) 0.0 % 05/28/22 04:54 Baso % (Auto) 0.2 % 05/28/22 04:54 Neut # (Auto) 4.25 10^3/uL (1.8-7.7) 05/28/22 04:54 Lymph # (Auto) 0.3 10^3/uL (0.8-4.8) L 05/28/22 04:54 Dale # (Auto) 0.1 10^3/uL (0.2-0.9) L 05/28/22 04:54 Eos # (Auto) 0.0 10^3/uL (0.0-0.8) 05/28/22 04:54 Baso # (Auto) 0.0 10^3/uL (0.0-0.1) 05/28/22 04:54 Absolute Gran (auto) Cancelled 05/26/22 03:57 Nucleated RBC % (auto) 0 % 05/28/22 04:54 Nucleated RBCs # 0.0 /100WBC 05/28/22 04:54 Specimen Type Arterial 05/26/22 03:46 Sample Site Radial, right 05/26/22 03:46 ABG pH 7.35 (7.35-7.45) 05/26/22 03:46 ABG pCO2 72.1 mmHg (35-45) H* 05/26/22 03:46 ABG pO2 76.9 mmHg (80.0-100.0) L 05/26/22 03:46 ABG HCO3 40.1 mmol/L (22-26) H 05/26/22 03:46 ABG Base Excess 12.2 mmol/L (-2.0-2.0) H 05/26/22 03:46 Jordon Test Pos 05/26/22 03:46 Hematocrit 31.6 % (37-47) L 05/26/22 03:46 O2 Delivery Device Bipap 05/26/22 03:46 FiO2 40.0 % 05/26/22 03:46 Director Trade ID [email or web address] 05/26/22 03:46 Sodium 140 mmol/L (136-145) 05/28/22 04:54 Potassium 4.8 mmol/L (3.5-5.1) 05/28/22 04:54 Chloride 100 mmol/L (98-107) 05/28/22 04:54 Carbon Dioxide 34 mmol/L (22-29) H 05/28/22 04:54 Anion Gap 10.8 (5-19) 05/28/22 04:54 BUN 13 mg/dL (8-23) 05/28/22 04:54 Creatinine 0.4 mg/dL (0.5-0.9) L 05/28/22 04:54 GFR Calculation 162.8 mL/min (90-130) H 05/28/22 04:54 Glucose 207 mg/dL (65-115) H 05/28/22 04:54 Calculated Osmolality 296 mOsm/kg (285-295) H 05/28/22 04:54 Lactic Acid 0.7 mmol/L (0.5-2.2) 05/26/22 03:57 Calcium 9.0 mg/dL (8.5-10.5) 05/28/22 04:54 Magnesium 2.0 mg/dL (1.7-2.3) 05/27/22 06:29 Total Bilirubin 0.2 mg/dL (0.15-1.2) 05/28/22 04:54 AST 6 U/L (0-32) 05/28/22 04:54 ALT 7 U/L (0-33) 05/28/22 04:54 Alkaline Phosphatase 96 U/L (35-105) 05/28/22 04:54 Troponin T Baseline 28 ng/L (0-10) H 05/26/22 03:57 Troponin T 120 Minute 25.84 ng/L (0-10) H 05/26/22 05:39 Delta Troponin T -2.16 ABS# (0-10) L 05/26/22 05:39 Troponin T Hi Sens 6Hr 22.11 ng/L (0-10) H 05/26/22 10:00 Troponin T Hi Sens 6Hr Delta -5.89 ng/L (0-12) L 05/26/22 10:00 C-Reactive Protein 107.8 mg/L (0.0-4.9) H 05/26/22 03:57 NT-Pro-B Natriuret Pep 627 pg/mL (0-125) H 05/26/22 03:57 Total Protein 6.1 g/dL (6.6-8.7) L 05/28/22 04:54 Albumin 3.3 g/dL (3.5-5.2) L 05/28/22 04:54 Globulin 2.8 g/dL (1.3-4.6) 05/28/22 04:54 Procalcitonin 0.12 ng/mL (0-0.5) 05/26/22 03:57 Coronavirus 229E (PCR) Not detected (NOT DETECT) 05/26/22 03:50 SARS-CoV-2 (PCR) Not detected (NOT DETECT) 05/26/22 03:50 Vitals Last Vital Signs Temp 98.9 F 05/28/22 11:44 Pulse 72 05/28/22 11:49 Resp 16 05/28/22 11:44 BP 167/87 05/28/22 11:44 Pulse Ox 91 05/28/22 11:44 O2 Del Method 05/28/22 11:44 O2 Flow Rate 4 05/28/22 11:44 FiO2 36 05/28/22 05:54 Discharge Plan Discharge Patient Disposition: Home Condition: Stable Prescriptions: New cefdinir 300 mg capsule 300 mg PO BID 5 Days Qty: 10 0RF prednisone 5 mg tablet See Rx Instructions .ROUTE .COMPLEX Qty: 21 0RF Rx Instructions: 3 tab daily for 3 days, then 2 tab for 3 days, then 1 tab for 3 days, then 1/2 tab for 4 days. Continued montelukast [Singulair] 10 mg tablet 10 mg PO BEDTIME@20 albuterol sulfate [ProAir HFA] 90 mcg/actuation HFA aerosol inhaler 2 puff INHALATION Q4H PRN (Reason: Shortness Of Breath) (DME) oxygen-air delivery systems Device See Rx Instructions .ROUTE .MEDSUPPLY Qty: 1 Rx Instructions: As directed 2L atorvastatin 20 mg tablet 20 mg PO BEDTIME@20 Anoro Ellipta 62.5-25 mcg/actuation blister with device 1 inh inhalation DAILY Qty: 60 0RF sertraline [Zoloft] 100 mg tablet 100 mg PO DAILY@07 quetiapine [Seroquel] 100 mg tablet 100 mg PO BEDTIME@20 levothyroxine 175 mcg tablet 175 mcg PO DAILY@06 albuterol sulfate 2.5 mg /3 mL (0.083 %) Solution For Nebulization 2.5 mg inhalation Q4H Rx Instructions: start date 05/25/22 end date 05/31/22 Miralax 17 gram Powder In Packet 17 g PO DAILY@07 azithromycin 250 mg Tablet See Rx Instructions .ROUTE .COMPLEX Rx Instructions: 250 mg po daily @07:00 for days 2-5 for right lower lobe infiltrate (start date 05/26/22) (end date 05/30/22) lisinopril 10 mg Tablet 10 mg PO DAILY@07 ibuprofen 600 mg Tablet 600 mg PO TID@07,,16 Culturelle 10 billion cell Capsule 1 cap PO DAILY@07 Rx Instructions: start date 05/26/22 end date 05/30/22 acetaminophen 325 mg Tablet 650 mg PO Q4H PRN (Reason: Pain) hydrocodone-acetaminophen 5-325 mg Tablet 1 - 2 tab PO Q4H PRN (Reason: Pain) Pepcid 20 mg Tablet 20 mg PO BID Milk of Magnesia 400 mg/5 mL Suspension 30 ml PO DAILY PRN (Reason: Constipation) Dulcolax (bisacodyl) 10 mg Suppository 10 mg NV DAILY PRN (Reason: Congestion) Fleet Enema 19-7 gram/118 mL Enema 118 ml NV DAILY PRN (Reason: Constipation) Colace 100 mg Capsule 100 mg PO BID amino acids-protein hydrolys 15-101 gram-kcal/30 mL Liquid See Rx Instructions .ROUTE .COMPLEX Rx Instructions: 30ml po bid Discontinued azithromycin 250 mg Tablet 500 mg PO .ONE TIME DOSE Rx Instructions: start date 05/25/22 end date 05/26/22 Discharge Orders: Discharge Order (Routine); Ordered 05/28/22 Ordered By: Randal Shoemaker Referrals: Miller,Ananya, MEDICAL EDUCATION COORDINATOR [Primary Care Provider] - 4-7 days (Will call the patient with appointment information.) Discharge Diet: Cardiac Discharge Activity: Oxygen as instructed and Cpap/Bipap as instructed Patient Instructions: Prednisone (By mouth), Cefdinir (By mouth), COPD (Chronic Obstructive Pulmonary Disease) (GEN), Opioid Safety Activity Restrictions/Additional Instructions: Continue oxygen at home 4 L nasal cannula, maintain oxygen saturation 88-92%. Decrease oxygen flow as tolerating to maintain target saturation. Discharge Attestations Time Spent in Discharge Care*: greater than 30 min Quality Metrics Clinical Quality Measures [ No reported AMI, CVA or VTE this stay] Coding Level of Care Code Acute Chg FW DC note Diagnoses Acute on chronic respiratory failure with hypoxia and hypercapnia J96.21; J96.22 Acute exacerbation of chronic obstructive pulmonary disease J44.1 Pneumonia J18.9 Respiratory distress R06.03 Pulmonary embolism I26.99 Pulmonary embolism type: unspecified Chronicity: unspecified Acute cor pulmonale presence: unspecified Pulmonary hypertension I27.20 Obstructive sleep apnea G47.33 Major depressive disorder, recurrent severe without psychotic features F33.2
== END 2022-05-28 12:00 | disposition home or self-care (01) | DRG 193 ==
LOC: ER 06:02 → MEDSURG 08:27
PROVIDERS: Admitting Provider Internal Medicine; Emergency Provider Emergency Medicine; PCP Nurse Practitioner Family; Visit Provider Internal Medicine
DX: J18.9 Pneumonia, unspecified organism (principal); J96.21 Acute and chronic respiratory failure with hypoxia; J96.22 Acute and chronic respiratory failure with hypercapnia; J44.1 Chronic obstructive pulmonary disease with (acute) exacerbation; F33.9 Major depressive disorder, recurrent, unspecified; J44.0 Chronic obstructive pulmonary disease with (acute) lower respiratory infection; I27.20 Pulmonary hypertension, unspecified; Z86.711 Personal history of pulmonary embolism; G47.33 Obstructive sleep apnea (adult) (pediatric); Z86.74 Personal history of sudden cardiac arrest; F43.12 Post-traumatic stress disorder, chronic; G47.00 Insomnia, unspecified; F17.210 Nicotine dependence, cigarettes, uncomplicated; E66.01 Morbid (severe) obesity due to excess calories; Z68.33 Body mass index [BMI] 33.0-33.9, adult; Z99.89 Dependence on other enabling machines and devices; Z99.81 Dependence on supplemental oxygen; Z79.891 Long term (current) use of opiate analgesic; Z79.51 Long term (current) use of inhaled steroids; G89.29 Other chronic pain
CPT/HCPCS: 36415; 36600; 71045; 80053; 82803; 83605; 83735; 83880; 84145; 84484; 85025; 86140; 86403; 87040; 87449; 87635; 93005; 94640; 94660; 94760; 96365; 96367; 96375; 99291; G0378; J0456; J0692; J0696; J2270; J2930; J3370; J3475; J7040; J7050; J7512; J7611

== ENCOUNTER 2022-08-16 03:03 | Emergency (ER) | payer MEDICARE, MEDICAID, SELFPAY ==
[2022-08-16 03:04] VITALS: BP 97/64; PULSE 80; RESP 18; TEMP 36.2; O2SAT 95; BMI 37.8
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
--- NOTE | 2022-08-16 03:13 | ED_ITS ---
HPI - Fall General: Chief Complaint: Fall Stated Complaint: ETOH,AMS Time Seen by Provider: 08/16/22 03:05 Source: patient and EMS Mode of arrival: EMS Limitations: no limitations History of Present Illness: 62-year-old female states she had been drinking tonight for New Year's Gladys she states she went to the bathroom tonight was extremely intoxicated she had fell hit her head on the bathtub but does have an abrasion to her right forearm no signs of any major head injuries patient is very intoxicated here in full history is difficult she will awaken and answer questions though. Associated symptoms-after fall: Reports headache(s); Denies abdominal pain, chest pain or neck pain Review of Systems Const: Denies: fever(s), chills, body aches or change in appetite Eyes: Denies: blurry vision or eye discomfort ENMT: Denies: throat pain or dental pain Card: Denies: chest pain Resp: Denies: dyspnea GI: Denies: abdominal pain, nausea, vomiting or diarrhea : Denies: dysuria Musc: Denies: neck pain or back pain Skin/Breast: Denies: rash Neuro: Reports: headache(s) Psych: Denies: depression Darell/Lymph: Denies: easy bruising All/Imm: Denies: urticaria PFSH ED PFSH: Medical History Chronic post-traumatic stress disorder Insomnia Major depressive disorder, recurrent severe without psychotic features Obstructive sleep apnea Psychiatric care Pulmonary embolism Surgical History History of tubal ligation Status post colonoscopy (03/17/21) Social History Smoking and tobacco status: current every day smoker cigarettes Packs smoked per day: 0.5 Years cigarettes smoked: 50 Quit status (tobacco): not considering quitting Second hand smoke exposure: No Smoking risk assessment/counseling performed?: Yes Alcohol intake: current Alcohol intake frequency: holidays/special occasions only Alcohol type: hard liquor Lives independently: Yes Household members: none Marital status: Current occupational status: disabled Pets and animals: No History of recent travel: No Current gender identity: Female Physical Exam Const: COMMON NORMALS: patient oriented x3 and healthy appearing GENERAL APPEARANCE: odor of alcohol detected HENMT: COMMON NORMALS: normocephalic and atraumatic HEAD & SCALP: normocephalic and atraumatic Eye: COMMON NORMALS: Equal, round and reactive pupils present and EOMs intact bilaterally PUPIL: Yes Equal, round and reactive pupils present Neck/C-Spine: COMMON NORMALS: full ROM and supple Chest: COMMONS NORMALS: normal inspection of the chest and normal palpation of entire chest wall Resp: COMMON NORMALS: normal respiratory effort, No retractions, No use of accessory muscles and clear to auscultation bilaterally AUSCULTATION: clear to auscultation bilaterally Cardio: COMMON NORMALS: regular rate, regular rhythm and No murmurs present (Cardio) RATE: regular rate RHYTHM: regular rhythm GI: COMMON NORMALS: Normal to inspection, nondistended, normoactive bowel sounds present, Soft to palpation, non-tender and no masses PALPATION: Yes Soft to palpation Extremity: COMMON NORMALS: full ROM OTHER: Abrasion to right arm superficial Neuro: COMMON NORMALS: patient oriented x3, moves all extremities and no focal motor deficits Psych: COMMON NORMALS: mental status grossly normal, Normal thought process present and cooperative THOUGHT PROCESS: Normal thought process present Skin: COMMON NORMALS: no rashes or lesions noted GENERAL SKIN EXAM: no r ashes or lesions noted Course Vital Signs: Vital signs: Vital Signs Temperature 97.1 F L 08/16/22 03:04 Pulse Rate 84 08/16/22 04:30 Respiratory Rate 20 H 08/16/22 04:30 Blood Pressure 104/64 08/16/22 04:30 Pulse Oximetry 99 08/16/22 04:30 Oxygen Delivery Me thod 08/16/22 04:30 Oxygen Flow Rate 5 08/16/22 04:30 MDM - Fall Medical Decision Making Patient presents here with a fall and alcohol intoxication CT head C-spine are normal she is well-appearing here she is stable for discharge she is follow-up PCP and return if worsening. Lab Data Radiology Impressions Cervical Spine CT 08/16/22 03:13 IMPRESSION: 1. No evidence of acute fracture or subluxation. 2. Upper lung zone and biapical severe emphysema. Head CT 08/16/22 03:13 IMPRESSION: No evidence of acute intracranial abnormality. Discharge Plan Discharge Patient Disposition: Home Clinical Impression: Closed head injury, Alcohol intoxication Condition: Stable Prescriptions: No Action albuterol sulfate [ProAir HFA] 90 mcg/actuation HFA aerosol inhaler 2 puff INHALATION Q4H PRN (Reason: Shortness Of Breath) (DME) oxygen-air delivery systems Device See Rx Instructions .ROUTE .MEDSUPPLY Qty: 1 Rx Instructions: As directed 4L atorvastatin 20 mg tablet 20 mg PO BEDTIME@20 quetiapine [Seroquel] 200 mg tablet 200 mg PO .9 pm Qty: 30 6RF Rx Instructions: Take one tablet at 9 pm sertraline [Zoloft] 100 mg tablet 100 mg PO .morning Qty: 30 6RF Rx Instructions: Take one tablet every morning levothyroxine 175 mcg tablet 175 mcg PO DAILY@06 albuterol sulfate 2.5 mg /3 mL (0.083 %) Solution For Nebulization 2.5 mg inhalation Q4H Rx Instructions: start date 05/25/22 end date 05/31/22 lisinopril 10 mg Tablet 10 mg PO DAILY@07 ibuprofen 600 mg Tablet 600 mg PO TID@07,11,16 acetaminophen 325 mg Tablet 650 mg PO Q4H PRN (Reason: Pain) Colace 100 mg Capsule 100 mg PO BID lidocaine 5 % adhesive patch,medicated 1 patch topical Q24H Qty: 15 0RF Rx Instructions: leave on most painful area for up to 12 hrs Discharge Orders: Discharge ED (Routine); Ordered 08/16/22 Ordered By: Lucía Rendon Referrals: Miller,Ananya, PIG FARMER [Primary Care Provider] - 1-3 days Discharge Diet: Advance as tolerated Discharge Activity: Resume usual activity Patient Instructions: Head Injury (ED) Coding Level of Care Code ED Financial Investment Manager for Susan Fwd Exam Comprehensive
[2022-08-16 04:12] VITALS: BP 125/65; PULSE 81; RESP 19; O2SAT 97
[2022-08-16 04:30] VITALS: BP 104/64; PULSE 84; RESP 20; O2SAT 99
[2022-08-16 05:59] VITALS: BP 126/69; PULSE 75; RESP 15; O2SAT 98
== END 2022-08-16 05:58 | disposition home or self-care (01) ==
PROVIDERS: Emergency Provider Emergency Medicine; PCP Nurse Practitioner Family
DX: S09.8XXA Other specified injuries of head, initial encounter (principal); F10.129 Alcohol abuse with intoxication, unspecified; Y90.9 Presence of alcohol in blood, level not specified; F17.210 Nicotine dependence, cigarettes, uncomplicated
CPT/HCPCS: 70450; 72125; 99284

== ENCOUNTER → 2022-09-03 10:26 | Outpatient (BNVA) | payer MEDICARE, MEDICAID, SELFPAY | PROVIDERS: PCP Nurse Practitioner Family; Visit Provider Internal Medicine Pulmonary Disease | DX: J43.2 Centrilobular emphysema (principal); Z71.6 Tobacco abuse counseling; F17.210 Nicotine dependence, cigarettes, uncomplicated; G47.33 Obstructive sleep apnea (adult) (pediatric); I27.20 Pulmonary hypertension, unspecified; Z86.711 Personal history of pulmonary embolism; Z79.01 Long term (current) use of anticoagulants; Z86.74 Personal history of sudden cardiac arrest | CPT/HCPCS: 99214 ==

== ENCOUNTER 2022-11-19 14:35 | Outpatient (CLI) | payer MEDICARE, MEDICAID, OTHER, SELFPAY ==
--- NOTE | 2022-11-19 15:17 | XR_ITS ---
WS: [id number] XR shoulder LT min 2V* [id number] REASON FOR EXAM: LEFT SHOULDER TENDONITIS FINDINGS: No fracture or focal bone lesion. Moderate narrowing of the acromioclavicular joint. Glenohumeral joint is not well evaluated with this examination. Joint appears intact without signific ant narrowing. Mild subchondral sclerosis and cystic change in the biceps tuberosity. Amorphous soft tissue calcification overlying the biceps tuberosity. XR/XR shoulder LT min 2V* [id number] IMPRESSION: Mild osteoarthritis of the acromioclavicular joint. 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
== END 2022-11-19 14:36 | disposition home or self-care (01) ==
PROVIDERS: PCP Nurse Practitioner Family; Visit Provider Nurse Practitioner Family
DX: M77.8 Other enthesopathies, not elsewhere classified (principal); M19.012 Primary osteoarthritis, left shoulder
CPT/HCPCS: 73030

== ENCOUNTER → 2023-02-24 14:14 | Outpatient (BNVA) | payer MEDICARE, MEDICAID, OTHER, SELFPAY | PROVIDERS: PCP Nurse Practitioner Family; Referring Provider Nurse Practitioner Family; Visit Provider Specialist | DX: M25.512 Pain in left shoulder (principal); G89.29 Other chronic pain; S49.92XS Unspecified injury of left shoulder and upper arm, sequela; W18.2XXS Fall in (into) shower or empty bathtub, sequela | CPT/HCPCS: 73030; 99204 ==

== ENCOUNTER → 2023-03-08 10:49 | Outpatient (BNVA) | payer MEDICARE, MEDICAID, SELFPAY | PROVIDERS: PCP Nurse Practitioner Family; Visit Provider Internal Medicine Pulmonary Disease | DX: I27.20 Pulmonary hypertension, unspecified; F17.210 Nicotine dependence, cigarettes, uncomplicated; Z71.6 Tobacco abuse counseling; G47.33 Obstructive sleep apnea (adult) (pediatric); J43.2 Centrilobular emphysema; Z99.81 Dependence on supplemental oxygen; Z86.74 Personal history of sudden cardiac arrest; Z86.711 Personal history of pulmonary embolism; Z79.01 Long term (current) use of anticoagulants | CPT/HCPCS: 99214 ==

== ENCOUNTER 2023-03-22 11:09 | Outpatient (CLI) | payer MEDICARE, MEDICAID, SELFPAY ==
--- NOTE | 2023-03-22 11:15 | CT_ITS ---
WS: [id number] LDCT LUNG CANCER SCREENING TECHNIQUE: Noncontrast CT of the chest with coronal and sagittal reformatted images. CLINICAL INFORMATION: lung cancer screenin COMPARISON: April 29, 2022 DLP: 80.71 mGy.cm DIvol: Mean CTDIvol: 1.70 (mGy) All CT scans at [facility] use at least one of these dose optimization techniques: automat ed exposure control; mA and/or kV adjustment per patient size (includes targeted exams where dose is matched to clinical indication); or iterative reconstruction. FINDINGS: Aortic calcification. Normal caliber thoracic aorta. Enlarged main pulmonary artery and RIGHT and LEF T main pulmonary arteries compatible with pulmonary arterial hypertension unchanged from previous. Co ronary calcification. No axillary lymphadenopathy. No mediastinal or hilar lymphadenopathy. Adrenal glands are normal. Tiny esophageal hiatal hernia. Mild thoracic curve. Pleural plaques with 4 .1 cm round atelectasis in RIGHT lower lobe similar to previous April 29, 2022. This is stable si nce 2019. This is FDG negative on the prior PET/CT 2019. Pleural thickening RIGHT lower lobe is unchanged. Advanced chronic emphysematous changes. Interstitia l thickening with slight hazy opacities in the LEFT lower lobe likely inflammatory. Small amount of p leural thickening LEFT lower lobe. CT/CT lung screening [id number] IMPRESSION: Markedly enlarged central pulmonary arteries compatible with pulmonary arterial hypertension unchanged since 2021 LUNG-RADS: 2S-Benign Appearance or Behavior with Significant Findings FOLLOW UP: 12 Month: Continue annual screening with LDCT
== END 2023-03-22 11:10 | disposition home or self-care (01) ==
PROVIDERS: PCP Nurse Practitioner Family; Visit Provider Specialist
DX: Z12.2 Encounter for screening for malignant neoplasm of respiratory organs (principal); F17.210 Nicotine dependence, cigarettes, uncomplicated; R06.03 Acute respiratory distress; J96.21 Acute and chronic respiratory failure with hypoxia; J96.22 Acute and chronic respiratory failure with hypercapnia; J44.9 Chronic obstructive pulmonary disease, unspecified
CPT/HCPCS: 71271

== ENCOUNTER 2023-03-22 16:44 | Inpatient (IN) | payer MEDICARE, MEDICAID, SELFPAY ==
[2023-03-22] VITALS (39 sets, daily range): BP systolic 79–170; BP diastolic 38–109; PULSE 56–136; RESP 10–25; TEMP 36.6; O2SAT 91–100
--- NOTE | 2023-03-22 16:49 | ECG_ITS ---
[facility] Test Date: 2023-03-22 Pat Name: Anne Turcios Department: Room: Gender: Female Bomb Technician: : 1960 Requested By: Joshua Hauser Order Number: [id number] Ethel MD: Hal Ashton M.D. Measurements Intervals [place] Rate: 115 P: 75 SC: 173 QRS: -63 QRSD: 106 T: 96 QT: 302 QTc: 418 Interpretive Statements SINUS TACHYCARDIA WITH FREQUENT SUPRAVENTRICULAR ECTOPICS LOW QRS VOLTAGE IN PRECORDIAL LEADS [QRS DEFLECTION < 1.0 mV IN CHEST LEADS] POSSIBLE ANTERIOR MYOCARDIAL INFARCTION , OF INDETERMINATE AGE [30 ms Q WAVE IN V3/V4, OR R < 0.2 mV IN V4] INFERIOR MYOCARDIAL INFARCTION , POSSIBLY ACUTE [40+ ms Q WAVE AND/OR ST/T ABNORMALITY IN II/aVF] ACUTE CO Compared to ECG 05/26/2022 10:37:20 Ventricular premature complex(es) now present Low QRS voltage now present Sinus rhythm no longer present Myocardial infarct finding still present Electronically Signed On 03-22-2023 22:46:47 CDT by Hal Ashton M.D. [id number]
--- NOTE | 2023-03-22 16:52 | XRR_ITS ---
PROCEDURE INFORMATION: Exam: XR Chest Exam date and time: 03/22/2023 5:09 PM Age: 62 years old Clinical indication: Dyspnea and shortness of breath; Additional info: Resp distress TECHNIQUE: Imaging protocol: Radiologic exam of the chest. Views: 1 view. COMPARISON: CT lung screening [id number] 03/22/2023 11:32 AM FINDINGS: Lungs: Bibasilar left greater than right subsegmental atelectasis versus infiltrate. Pleural spaces: Unremarkable. No pleural effusion. No pneumothorax. Heart/Mediastinum: Cardiomegaly. Bones/joints: Several chronic right posterior rib fractures. Other findings: Trace bilateral effusions suspected. XR/XR chest 1V portable [id number] IMPRESSION: 1. Bibasilar left greater than right subsegmental atelectasis versus infiltrate. 2. Trace bilateral effusions suspected. 3. Cardiomegaly.
[2023-03-22] MEDS: nitroglycerin 0.4 mg sublingual Tablet SUBLINGUAL (17:01)
[2023-03-22] MEDS: labetalol 5 mg/mL SDV 20mL 10 MG IVP (17:03)
[2023-03-22] MEDS: morphine 4 mg/mL SDV 1 mL IVP (17:04)
[2023-03-22 17:05] LABS: ABG PCO2 54.8 mmHg (35-45); Blood Gas Allen Test Pos; Blood Gas Operator Identificat MONRO; Blood Gas Sample Site Radial, right; Blood Gas Sample Type Arterial; Oxygen Device BIPAP
[2023-03-22 17:06] LABS: Basophils # 0.1 10^3/uL (0.0-0.1); Basophils % 0.6 %; Eosinophils # 0.5 10^3/uL (0.0-0.8); Eosinophils % 3.3 %; Hematocrit 44.1 % (37.0-47.0); Hemoglobin 13.4 g/dL (11.5-15.3); Lymphocytes # 4.1 10^3/uL (0.8-4.8); Lymphocytes % 29.7 %; Mean Corpuscular HGB Conc 30.4 g/dL (30.0-36.0); Mean Corpuscular Hemoglobin 28.8 pg (28.0-34.0); Mean Corpuscular Volume 94.6 fl (81-99); Mean Platelet Volume 10.9 fL (7.4-10.4); Monocytes # 0.9 10^3/uL (0.2-0.9); Monocytes % 6.7 %; Neutrophils # 7.88 10^3/uL (1.8-7.7); Neutrophils % 57.5 %; Nucleated Red Blood Cells % 0 %; Platelet Count 248 10^3/cmm (130-400); Red Blood Count 4.66 10^6/uL (4.1-5.3); Red Cell Distribution Width 12.7 % (12.1-15.1); White Blood Count 13.7 10^3/uL (4.0-10.0)
[2023-03-22 17:06] LABS: ABG PH Result 7.17 (7.35-7.45)
--- NOTE | 2023-03-22 17:18 | ED_ITS ---
HPI - SOB/Dyspnea General: Chief Complaint: Shortness of Breath/Dyspnea Stated Complaint: SOB Time Seen by Provider: 03/22/23 16:52 History of Present Illness: HPI Narrative: 62-year-old female presents to the emergency department by EMS in respiratory distress. They had to put her on 15 L nonrebreather. They gave her a DuoNeb as well as an albuterol treatment. She was hypoxic and working very hard to breathe when they arrived. Patient has chronic hypoxic respiratory failure, she is a smoker, she has a history of cardiopulmonary arrest of undetermined etiology with successful resuscitation, history of factor V Leiden disease on Pradaxa with history of pulmonary embolism, history of ongoing tobacco smoking, uses 4 L of oxygen by nasal cannula at all times and uses a CPAP at night. Patient reports approximately 1 hour prior to EMS arrival she suddenly started feeling very short of breath. She cannot think of anything which would have exacerbated this. She was compliant with her Pradaxa this morning. She has not had any pain or swelling in her extremities. Review of Systems Narrative: History is somewhat limited by respiratory distress and the immediate application of a BiPAP mask. However patient states that she has not had any chest pain, fever, sputum production, and denies any pain or swelling in her legs. She has no idea why this came on so suddenly. She does endorse frequent wheezing. She has been using 4 L of oxygen at home. No vomiting, no fever. The rest of the review of systems is limited due to the patient's condition and urgency. [facility] ED PFSH: Medical History Chronic post-traumatic stress disorder Cigarette nicotine dependence Insomnia Major depressive disorder, recurrent severe without psychotic features Obstructive sleep apnea Psychiatric care Pulmonary embolism Surgical History History of tubal ligation Status post colonoscopy (03/17/21) Social History Smoking and tobacco status: current every day smoker cigarettes Packs smoked per day: 0.5 Years cigarettes smoked: 50 Quit status (tobacco): not considering quitting Second hand smoke exposure: No Smoking risk assessment/counseling performed?: Yes Alcohol intake: current Alcohol intake frequency: holidays/special occasions only Alcohol type: hard liquor Substance/Drug Use: never Lives independently: Yes Household members: none Marital status: Current occupational status: disabled Pets and animals: No Do you think of yourself as: Straight/Heterosexual Current gender identity: Female Physical Exam Narrative: EXAM NARRATIVE: Patient appears her stated age. She is in respiratory distress. She is in tripod position. She has extremely diminished breath sounds. She is using accessory muscles to breathe. She is quite tachypneic. She is tachycardic. She is hypertensive. She is slightly sweaty. Abdomen is soft and nondistended. Radial pulse is 1+. There is pitting edema 1+ in both lower extremities. She has awake, alert, interactive but using all of her energy to breathe. She is normocephalic and atraumatic with moist mucous membranes. No JVD is appreciated at this time. No wheezing is appreciated. Chest wall is expanding symmetrically. No rashes or wounds noted. No focal neurologic abnormalities. No apparent encephalopathy. Course Vital Signs: Vital signs: Vital Signs Pulse Rate 60 03/22/23 18:52 Respiratory Rate 16 03/22/23 18:52 Blood Pressure 83/51 03/22/23 18:52 Pulse Oximetry 94 03/22/23 18:52 Oxygen Delivery Me thod BiPAP 03/22/23 18:05 Oxygen Flow Rate 15 03/22/23 16:45 Fraction of Inspir ed Oxygen 35 03/22/23 17:30 MDM - SOB/Dyspnea Medical Decision Making Patient presents with respiratory distress. Differential diagnosis is flash pulmonary edema, COPD exacerbation, arrhythmia, bleeding with anemia, CHF exacerbation, pulmonary embolism, hypertensive emergency, other. I immediately initiated BiPAP. This seemed to help significantly. We also aggressively lowered her blood pressure with the consideration that flash pulmon manny edema and hypertensive emergency frequently cause rapid onset of dyspnea. EKG shows an irregular mildly widened (QRS duration 106 ms), irregular rhythm. This could be sinus tach with PACs or I suppose it could possibly be atrial fibrillation. I would lean towards a sinus tachycardia as I think I can see P waves in several of the leads. Patient has already been given beta agonists, ipratropium, and Decadron by EMS. ABG shows respiratory acidosis with a pH of 7.169, PCO2 of 54.8, PO2 of 217, carbon oxide of 4.5%, bicarb of 20. I suspect based on the pH that the patient's PCO2 was much higher prior to the initiation of BiPAP. The ABG was taken about 20 minutes after we started BiPAP which would explain why we have some partial improvement in the PCO2 UPDATE: Patient's respiratory distress improved rapidly. She does have some cardiomegaly and some atelectasis versus bibasilar infiltrate in the bases. By the time the x-ray was performed she had already been on CPAP so not sure if there was pulmonary edema prior to this. The white blood cell count is 13.7 which is nonspecific given her stress. The creatinine is 1.3 with a potassium of 5.8. I have reassessed her many times. She is now off of BiPAP and down to her baseline 4 L/min. She is fully conversational and seems to be rapidly improved. I did send her for a CT angiogram and I am awaiting those images to be uplo aded. Her rhythm is now definitively sinus with a rate in the 60s. She did have transient hypotension which was asymptomatic to her. This was likely due to a combination of resolving her respiratory distress (reducing cortisol/epinephrine) and the nitroglycerin and labetalol that she got for treva re hypertension. She has been asymptomatic so we managed simply by putting her in Trendelenburg and allowing the medication to metabolize. She does seem to be somewhat intravascularly depleted and so I am going to give her a little bit of IV fluid. I have ordered some Lokelma for her potassium of 5.8 but there is no signs of any peaked T waves or QRS widening, or any need to emergently lower at this time. I am going to go ahead and admit the patient to the hospital overnight for further reassessment and treatment as needed. Lab Data 03/22/23 17:00 03/22/23 17:00 Labs/Radiology: Radiology Impressions Chest X-Ray 03/22/23 16:52 IMPRESSION: 1. Bibasilar left greater than right subsegmental atelectasis versus infiltrate. 2. Trace bilateral effusions suspected. 3. Cardiomegaly. Laboratory Results WBC 13.7 10^3/uL (4.0-10.0) H 03/22/23 17:00 RBC 4.66 10^6/uL (4.1-5.3) 03/22/23 17:00 Hgb 13.4 g/dL (11.5-15.3) 03/22/23 17:00 Hct 44.1 % (37.0-47.0) 03/22/23 17:00 MCV 94.6 fl (81-99) 03/22/23 17:00 MCH 28.8 pg (28.0-34.0) 03/22/23 17:00 MCHC 30.4 g/dL (30.0-36.0) 03/22/23 17:00 RDW 12.7 % (12.1-15.1) 03/22/23 17:00 Plt Count 248 10^3/cmm (130-400) 03/22/23 17:00 MPV 10.9 fL (7.4-10.4) H 03/22/23 17:00 Neut % (Auto) 57.5 % 03/22/23 17:00 Lymph % (Auto) 29.7 % 03/22/23 17:00 [place] % (Auto) 6.7 % 03/22/23 17:00 Eos % (Auto) 3.3 % 03/22/23 17:00 Baso % (Auto) 0.6 % 03/22/23 17:00 Neut # (Auto) 7.88 10^3/uL (1.8-7.7) H 03/22/23 17:00 Lymph # (Auto) 4.1 10^3/uL (0.8-4.8) 03/22/23 17:00 [place] # (Auto) 0.9 10^3/uL (0.2-0.9) 03/22/23 17:00 Eos # (Auto) 0.5 10^3/uL (0.0-0.8) 03/22/23 17:00 Baso # (Auto) 0.1 10^3/uL (0.0-0.1) 03/22/23 17:00 Nucleated RBC % (auto) 0 % 03/22/23 17:00 Nucleated RBCs # 0.0 /100WBC 03/22/23 17:00 D-Dimer 0.67 ug/mIFEU (0-0.59) H 03/22/23 17:00 Specimen Type Arterial 03/22/23 16:54 Sample Site Radial, right 08/07/23 16:54 ABG pH 7.17 (7.35-7.45) L* 03/22/23 16:54 ABG pCO2 54.8 mmHg (35-45) H 03/22/23 16:54 ABG pO2 217.0 mmHg (80.0-100.0) H 03/22/23 16:54 ABG HCO3 20.0 mmol/L (22-26) L 03/22/23 16:54 ABG Base Excess -9.0 mmol/L (-2.0-2.0) L 03/22/23 16:54 Jordon Test Pos 03/22/23 16:54 Hematocrit 43.0 % (37-47) 03/22/23 16:54 O2 Delivery Device Bipap 03/22/23 16:54 FiO2 50.0 % 03/22/23 16:54 Prospecting Driller Helper ID Monro 03/22/23 16:54 Sodium 140 mmol/L (136-145) 03/22/23 17:00 Potassium 5.8 mmol/L (3.5-5.1) H 03/22/23 17:00 Chloride 101 mmol/L (98-107) 03/22/23 17:00 Carbon Dioxide 19 mmol/L (22-29) L 03/22/23 17:00 Anion Gap 25.8 (5-19) H 03/22/23 17:00 BUN 20 mg/dL (8-23) 03/22/23 17:00 Creatinine 1.3 mg/dL (0.5-0.9) H 03/22/23 17:00 GFR Calculation 41.8 mL/min (90-130) L 03/22/23 17:00 Glucose 252 mg/dL (65-115) H 03/22/23 17:00 Calculated Osmolality 301 mOsm/kg (285-295) H 03/22/23 17:00 Calcium 9.1 mg/dL (8.5-10.5) 03/22/23 17:00 Total Bilirubin 0.2 mg/dL (0.15-1.2) 03/22/23 17:00 AST 51 U/L (0-32) H 03/22/23 17:00 ALT 59 U/L (0-33) H 03/22/23 17:00 Alkaline Phosphatase 101 U/L (35-105) 03/22/23 17:00 Troponin T Baseline 28 ng/L (0-10) H 03/22/23 17:00 NT-Pro-B Natriuret Pep 637 pg/mL (0-125) H 03/22/23 17:00 Total Protein 6.9 g/dL (6.6-8.7) 03/22/23 17:00 Albumin 4.3 g/dL (3.5-5.2) 03/22/23 17:00 Globulin 2.6 g/dL (1.3-4.6) 03/22/23 17:00 Critical Care Time Critical Care Time: Critical Care Time: Yes Total Critical Care Time: 85 Attestation: Patient arrived in extremis with respiratory distress. Immediate treatment was provided including BiPAP, control of blood pressure, IV access, continuation of beta agonist, formation of a differential diagnosis, ordering and interpretation of imaging, ABG, EKG, frequent reassessments, review of the chart, discussion with hospitalist. Risks associated with this presentation include cardiopulmonary arrest. Discharge Plan Discharge Patient Disposition: Placed in Observation Clinical Impression: Acute on chronic respiratory failure with hypoxia and hypercapnia, Respiratory distress, Tobacco dependence due to cigarettes, Hypertensive urgency, History of pulmonary embolism Condition: Stable Prescriptions: No Action albuterol sulfate [ProAir HFA] 90 mcg/actuation HFA aerosol inhaler 2 puff INHALATION Q4H PRN (Reason: Shortness Of Breath) (DME) oxygen-air delivery systems Device See Rx Instructions .ROUTE .MEDSUPPLY Qty: 1 Rx Instructions: As directed 4L atorvastatin 20 mg tablet 20 mg PO BEDTIME@20 mirtazapine 15 mg tablet,disintegrating 15 mg PO .9 pm Qty: 30 6RF Rx Instructions: Take one tablet at 9 pm sertraline [Zoloft] 100 mg tablet 100 mg PO .morning Qty: 30 6RF Rx Instructions: Take one tablet every morning Trelegy Ellipta 100-62.5-25 mcg blister with device 1 inh inhalation DAILY Qty: 60 6RF dabigatran etexilate [Pradaxa] 75 mg capsule 75 mg PO BID Qty: 60 3RF levothyroxine 175 mcg tablet 175 mcg PO DAILY@06 albuterol sulfate 2.5 mg /3 mL (0.083 %) Solution For Nebulization 2.5 mg inhalation Q4H Rx Instructions: start date 05/25/22 end date 05/31/22 Colace 100 mg Capsule 100 mg PO BID Referrals: Paul,HEAVEN Hare [Primary Care Provider] - Coding Level of Care Code ED Insert Operator for Susan Herring
--- NOTE | 2023-03-22 17:18 | CTR_ITS ---
PROCEDURE INFORMATION: Exam: CTA Chest With Contrast Exam date and time: 03/22/2023 7:22 PM Age: 62 years old Clinical indication: Dyspnea and shortness of breath; Additional info: Sudden dyspnea, HX of pes TECHNIQUE: Imaging protocol: Computed tomographic angiography of the chest with contrast. Exam focused on the arteries. 3D rendering (Not supervised by radiologist): MIP and/or 3D reconstructed images were created by the technologist. Radiation optimization: All CT scans at this facility use at least one of these dose optimization techniques: automated exposure control; mA and/or kV adjustment per patient size (includes targeted exams where dose is matched to clinical indication); or iterative reconstruction. Contrast material: OMNI 350; Contrast volume: 100 ml; Contrast route: INTRAVENOUS (IV); REPORTING DATA: Count of CT and Cardiac NM exams in prior 12 months: This patient has received 5 known CTs and 0 known cardiac nuclear medicine studies in the 12 months prior to the current study. COMPARISON: CT lung screening [id number] 03/22/2023 11:32 AM RADIATION DOSE METRICS: Total DLP (mGy-cm): 656 FINDINGS: Pulmonary arteries: Main pulmonary is dilated which can be a finding of chronic pulmonary hypertension. Aorta: Unremarkable. No aortic aneurysm. No aortic dissection. Veins: Reflux of contrast into the intrahepatic veins suggestive of congestive heart failure. Lungs: Emphysematous changes. Bibasilar right greater left airspace opacities with associated pleural thickening, similar to prior exam, may reflect chronic pleuroparenchymal fibrosis, areas of atelectasis and/or infiltrate are also considerations depending on the clinical scenario. Pleural spaces: See Lungs finding. Heart: Cardiomegaly. Coronary arteries: Coronary artery atherosclerotic calcifications. Lymph nodes: Several prominent upper abdominal lymph nodes measuring up to 14 mm short axis, nonspecific. Bones/joints: Chronic healed mid sternal body fracture. Several chronic left anterior rib fractures. Soft tissues: Unremarkable. CT/CT angio chest PE protcl [id number] IMPRESSION: 1. Negative for pulmonary embolus. 2. Main pulmonary is dilated which can be a finding of chronic pulmonary hypertension. 3. Cardiomegaly. 4. Coronary artery atherosclerotic calcifications. 5. Reflux of contrast into the intrahepatic veins suggestive of congestive heart failure. 6. Several prominent upper abdominal lymph nodes measuring up to 14 mm short axis, nonspecific. 7. Emphysematous changes. 8. Bibasilar right greater left airspace opacities with associated pleural thickening, similar to prior exam, may reflect chronic pleuroparenchymal fibrosis, areas of atelectasis and/or infiltrate are also considerations depending on the clinical scenario. 9. Chronic healed mid sternal body fracture. 10. Several chronic left anterior rib fractures. COMMENTS: In the absence of a history or active diagnosis of lung cancer, it is recommended that this patient with emphysema be evaluated for enrollment in a low dose CT lung cancer screening program.
[2023-03-22 17:46] LABS: Alanine Aminotransferase 59 U/L (0-33); Albumin Level 4.3 g/dL (3.5-5.2); Alkaline Phosphatase 101 U/L (35-105); Aspartate Amino Transferase 51 U/L (0-32); Blood Urea Nitrogen 20 mg/dL (8-23); Calcium 9.1 mg/dL (8.5-10.5); Carbon Dioxide 19 mmol/L (22-29); Chloride 101 mmol/L (98-107); Globulin 2.6 g/dL (1.3-4.6); Glomerular Filtration Rate 41.8 mL/min (90-130); Glucose 252 mg/dL (65-115); NT Pro B Type Natriuretic Pept 637 pg/mL (0-125); Osmolality Calculated 301 mOsm/kg (285-295); Sodium 140 mmol/L (136-145); Total Bilirubin 0.2 mg/dL (0.15-1.2); Total Protein 6.9 g/dL (6.6-8.7)
[2023-03-22 17:47] LABS: Troponin(5th) Baseline 28 ng/L (0-10)
[2023-03-22 17:54] LABS: Anion Gap 25.8 (5-19); Potassium 5.8 mmol/L (3.5-5.1)
[2023-03-22 18:11] LABS: D Dimer 0.67 ug/mIFEU (0-0.59)
--- NOTE | 2023-03-22 18:58 | PC.NURSE ---
RN assumed care from 0700 RN. RN into room to assess pt. Pt is currently off the BiPAP and on 4L NC. Pt is not in any acute respiratory distress and states she is breathing much better. Pt states she has sternal chest pain upon breathing and her chest hurts to touch. Pt states she is just feeling really weird. Pt current blood pressure is 88/60 which is much lower than arrival per the 0700 RN. Pt is currently resting in bed, alert and awake at this time.
[2023-03-22] MEDS: iohexol 350 mg/mL 500 mL Btl (per mL) IV (19:16)
--- NOTE | 2023-03-22 20:00 | P.HP_ITS ---
Providers/Chief Complaint Primary Care Provider: Ananya Miller, [place] Chief Complaint: SOB History of Present Illness Anne Turcios is a 62 year old female with past medical history of COPD, hypothyroidism, pulmonary hypertension pulmonary embolism, obstructive sleep apnea,?4L at [facility] with cpap presented to hospital with chief complaint of shortness of breath. Patient is denying fever, productive cough, upper airway infection, recent infections, all of a sudden she started experiencing shortness of breath which she is describing as no drive at all to breathe on her own and nothing was helping her at home that prompted her visit to the ER. In the ER she has been diagnosed with acute hypoxic hypercapnic respiratory failure, don tompkins stating that her chest pain that she noticed at home which was substernal improved as soon as she was put on BiPAP, no active chest pain at the time of my evaluation, D-dimer 0.6, her respiratory status improved on BiPAP she was able to give me stated interview. I have requested ICU bed and will keep her on BiPAP overnight patient is an active smoker smoking 1 pack per 3 days, patient stating that her smoking cessation date is May 12, she is slowly cutting back on her daily smokin g, BMP showing hyperkalemia however BMP sample is hemolyzed I request another ABG and BMP, she will go to ICU She was hypertensive 166/109mmhg she was given labetalol that dropped her pressure significantly at the time of my evaluation she is 96/68 mmHg without any active symptoms Review of Systems Const: Denies: fever(s) Eyes: Denies: change in vision ENMT: Denies: throat pain Card: Reports: chest pain Resp: Reports: dyspnea GI: Denies: abdominal pain : Denies: dribbling Skin/Breast: Denies: rash Medications/Allergies Home Medications Medication Instructions Recorded Confirmed Last Taken Type albuterol sulfate 90 mcg/actuation 2 puff inhalation Q4H PRN 10/28/19 03/19/23 03/16/21 History aerosol inhaler (ProAir HFA) Shortness Of Breath atorvastatin 20 mg tablet 20 mg PO BEDTIME@20 12/09/20 03/19/23 03/16/21 History albuterol sulfate 2.5 mg/3 mL 2.5 mg inhalation Q4H while awake 05/26/22 03/19/23 Unknown History (0.083 %) solution for nebulization for 5 days-hold inhaler while on nebs docusate sodium 100 mg capsule 100 mg PO BID 05/26/22 03/19/23 Unknown History (Colace) levothyroxine 175 mcg tablet 175 mcg PO DAILY@06 05/26/22 03/19/23 Unknown History oxygen-air delivery systems ##1 06/24/22 03/19/23 Unknown History fluticasone fur. 100 mcg-umeclid 1 inh inhalation DAILY #60 ea 11/02/22 03/19/23 Unknown Rx 62.5 mcg-vilant 25 mcg inhalat.powder (Trelegy Ellipta) dabigatran etexilate 75 mg capsule 75 mg PO BID #60 caps 12/29/22 03/19/23 Unknown Rx (Pradaxa) mirtazapine 15 mg disintegrating 15 mg PO .9 pm #30 tabs 02/02/23 03/19/23 Unknown Rx tablet sertraline 100 mg tablet (Zoloft) 100 mg PO .morning #30 tabs 03/19/23 03/19/23 Unknown Rx Allergies Allergy/AdvReac Type Severity Reaction Status Date / Time hydroxyzine AdvReac Severe ADR-Heartbu Verified 03/22/23 16:55 rn PFSH Acute PFSH: Medical History Chronic post-traumatic stress disorder Cigarette nicotine dependence Insomnia Major depressive disorder, recurrent severe without psychotic features Obstructive sleep apnea Psychiatric care Pulmonary embolism Surgical History History of tubal ligation Status post colonoscopy (03/17/21) Social History Smoking and tobacco status: current every day smoker cigarettes Packs smoked per day: 0.5 Years cigarettes smoked: 50 Quit status (tobacco): not considering quitting Second hand smoke exposure: No Smoking risk assessment/counseling performed?: Yes Alcohol intake: current Alcohol intake frequency: holidays/special occasions only Alcohol type: hard liquor Substance/Drug Use: never Lives independently: Yes Household members: none Marital status: Current occupational status: disabled Pets and animals: No Do you think of yourself as: Straight/Heterosexual Current gender identity: Female Vitals/I&O/Wt Last Vital Signs Pulse 60 03/22/23 18:52 Resp 16 03/22/23 18:52 BP 83/51 03/22/23 18:52 Pulse Ox 94 03/22/23 18:52 O2 Del Method BiPAP 03/22/23 18:05 O2 Flow Rate 15 03/22/23 16:45 FiO2 35 03/22/23 17:30 Weight last 48 hrs Weight 86.636 kg Physical Exam Narrative: Pleasant cooperative female GCS 15 Nonfocal neuroexam Currently on 4 L of oxygen No pursed lip breathing at time of evaluation Mild crackles noted at the base of the lungs No lower extremity edema Abdomen soft S1, S2 variable, A-fib without RVR Blood pressure 96/60 mmHg Family at the bedside Appears stated age Data 03/22/23 17:00 03/22/23 17:00 A&P Assessment and plan (1) Tobacco dependence due to cigarettes: (2) Hypertensive urgency: (3) History of pulmonary embolism: (4) Cigarette nicotine dependence: Qualifiers: Substance use status: uncomplicated Qualified Code(s): F17.210 - Nicotine dependence, cigarettes, uncomplicated (5) Acute on chronic respiratory failure with hypoxia and hypercapnia: (6) Respiratory distress: (7) Pneumonia: (8) Acute exacerbation of chronic obstructive pulmonary disease: (9) Insomnia: Qualifiers: Insomnia type: unspecified Qualified Code(s): G47.00 - Insomnia, unspecified (10) Non-STEMI (non-ST elevated myocardial infarction): (11) Hyperkalemia: Plan Acute COPD exacerbation Acute hypoxic hypercapnic respite failure Concern for pneumonia Patient care history of pulm hypertension, will request echo in the morning Clinically does not look fluid overloaded however BNP is high which could be due to underlying pulm hypertension Hold Lasix because of low blood pressure Start antibiotics I will keep her on BiPAP overnight Monitor in ICU Patient counseled regarding smoking cessation she already has quitting date in April Will start cardiac diet in the morning BiPAP overnight CODE STATUS discussed in detail with the patient: Patient is stating that in case of respiratory distress she is okay with intubation however in case she loses her pulse/cardiac arrest then she does not want to be resuscitated with chest compressions and defibrillation or intubation Hyperkalemia is related to hemolysis, recheck potassium, she has been given Kayexalate in the ER BRYAN: Patient clinically looks dehydrated I will give her gentle fluid hydration overnight her BNP is high most likely related to underlying PE and pulm hypertension history Non-STEMI: Significant delta troponin, no active chest pain, will request echo to see wall motion abnormality Will start her on therapeutic Lovenox aspirin and Plavix Patient lives alone at home uses 4 L of oxygen at baseline She also have sleep apnea uses CPAP at night Attestations Medical Necessity Statement*: Admit to ICU more than 2 midnights anticipated Diagnoses Tobacco dependence due to cigarettes F17.210 Hypertensive urgency I16.0 History of pulmonary embolism Z86.711 Cigarette nicotine dependence F17.210 Substance use status: uncomplicated Acute on chronic respiratory failure with hypoxia and hypercapnia J96.21; J96.22 Respiratory distress R06.03 Pneumonia J18.9 Acute exacerbation of chronic obstructive pulmonary disease J44.1 Insomnia G47.00 Insomnia type: unspecified Non-STEMI (non-ST elevated myocardial infarction) I21.4 Hyperkalemia E87.5
[2023-03-22 20:01] LABS: Troponin 5 2HR 104.6 ng/L (0-10); Troponin 5 2HR Delta 76.6 ABS# (0-10)
[2023-03-22] MEDS: sodium polystyrene sulfonate 15 gm/60 mL Btl PO (20:12)
[2023-03-22] MEDS: sodium chloride 0.9% 1,000 ML 999 ML IV (20:14)
--- NOTE | 2023-03-22 21:04 | USCV_ITS ---
Anne Turcios Age: 62 Gender: F : 1960 Exam Date: 03/22/2023 21:35 Ordering Phys: Glenda Muhammad MD Technologist: DIANN Exam Location: [facility] [place] Indication: long-term smoker, continues smoking. Hx chronic hypoxic respiratory failure. Hx pulmonary embolus. O2 dependent 4L BP: 96 / 68 HR: 62 Rhythm: Sinus Technical Quality: Adequate MEASUREMENTS (Male / Female) Normal Values 2D ECHO LV Diastolic Diameter PLAX 5.1 cm 4.2 - 5.9 / 3.9 - 5.3 cm LV Systolic Diameter PLAX 3.4 cm IVS Diastolic Thickness 1.3 cm 0.6 - 1.0 / 0.6 - 0.9 cm IVS Systolic Thickness 1.8 cm LVPW Diastolic Thickness 1.0 cm 0.6 - 1.0 / 0.6 - 0.9 cm LVPW Systolic Thickness 1.7 cm LVOT Diameter 2.1 cm LV Ejection Fraction 2D Teich 63.9 % LV Ejection Fraction MOD 2C 65.9 % LV Ejection Fraction 2C AL 66.3 % LA Diameter 5.1 cm LA Width 4.5 cm LA Height 5.7 cm RA Width 3.5 cm RA Height 4.0 cm Aorta at Sinotubular Diameter 2.7 cm M-MODE Aortic Annulus Diameter 3.0 cm LA Ao Ratio MM 1.6 MV E Point Septal Separation 0.5 cm DOPPLER AV Peak Velocity 97.0 cm/s LVOT Peak Velocity 92.0 cm/s AV Area Cont Eq vti 3.6 cm squared AV Area Cont Eq pk 3.2 cm squared MV Area PHT 3.1 cm squared Mitral E to A Ratio 1.2 MV E' Velocity 56.0 cm/s Mitral E to MV E' Ratio 13.6 Mitral E to LV E' Lateral Ratio 15.9 Mitral E to LV E' Septal Ratio 12.1 TR Peak Velocity 256.0 cm/s TR Peak Gradient 26.2 mmHg TV Peak E Velocity 44.0 cm/s Right Atrial Pressure 10.0 mmHg Pulmonary Artery Systolic Pressu 36.2 mmHg PV Peak Velocity 103.0 cm/s RV Acceleration Time 0.1 s RV Ejection Time 0.4 s RV AcT/ET 0.2 FINDINGS Left Ventricle Left ventricle is dilated. LV systolic function is mildly reduced with EF of 45-50%. Mild hypokinesis of anteroseptal wall. Moderate hypokinesis of inferior and inferolateral montiel. Right Ventricle Normal in size and function Right Atrium Grossly normal Left Atrium Dilated Mitral Valve Grossly normal. Trace mitral regurgitation. Aortic Valve Aortic valve is thickened. Trace aortic regurgitation. No significant stenosis. Tricuspid Valve Trace tricuspid regurgitation. Insufficient TR jet to calculate RVSP Pulmonic Valve Not well visualized Pericardium Normal Aorta Normal in size IVC Dilated CONCLUSIONS LV systolic function is mildly reduced with EF of 45-50%. Mild hypokinesis of anteroseptal wall. Moderate hypokinesis of inferior and inferolateral montiel. Left atrial dilation Trace mitral regurgitation Trace aortic regurgitation Trace tricuspid regurgitation Compared to prior echocardiogram from 2020, LV systolic function is mildly reduced now with above mentioned regional wall motion abnormalities are noted Kaushik Rogers MD (Electronically Signed) Final Date: 23 March 2023 17:31 S
[2023-03-22 21:17] LABS: Procalcitonin 0.05 ng/mL (0-0.5)
[2023-03-22] MEDS: quetiapine 100 mg Tablet 200 MG PO (22:17)
[2023-03-22] MEDS: aspirin 325 mg EC Tablet PO (22:17)
[2023-03-22] MEDS: enoxaparin 100 mg/mL Syringe 90 MG SUBCUT (22:17)
[2023-03-22] MEDS: clopidogrel 300 mg Tablet PO (22:17)
--- NOTE | 2023-03-22 22:52 | ECG_ITS ---
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 Measurements Intervals Emmett Rate: 57 P: 85 WA: 178 QRS: 71 QRSD: 113 T: 92 QT: 337 QTc: 330 Interpretive Statements SINUS BRADYCARDIA PROBABLE INFERIOR MYOCARDIAL INFARCTION , PROBABLY OLD [35 ms Q WAVE IN II/aVF] Compared to ECG 03/22/2023 16:49:55 Sinus tachycardia no longer present Myocardial infarct finding still present Electronically Signed On 03-23-2023 17:45:47 CDT by Kaushik Rogers M.D. [id number]
[2023-03-22 23:53] LABS: Troponin 5 6HR 136.2 ng/L (0-10); Troponin 5 6HR Delta 108.2 ng/L (0-12)
[2023-03-23] VITALS (65 sets, daily range): BP systolic 90–185; BP diastolic 53–83; PULSE 40–90; RESP 12–24; TEMP 36.4–36.9; O2SAT 88–100
[2023-03-23 00:02] LABS: Thyroid Stimulating Hormone 0.46 uIU/mL (0.27-4.20)
--- NOTE | 2023-03-23 00:20 | PC.NURSE ---
Pt c/o chest pain with breathing and with deep breaths. Denies increased pain with activity. Resting comfortably at this time. Rates pain <3/10.
[2023-03-23] MEDS: ipratropium-albuterol 3 mL Neb INHALATION ×4 (03:25→21:08)
[2023-03-23 04:48] LABS: Anion Gap 13.7 (5-19); Blood Urea Nitrogen 20 mg/dL (8-23); C Reactive Protein 11.5 mg/L (0.0-4.9); Calcium 8.3 mg/dL (8.5-10.5); Carbon Dioxide 26 mmol/L (22-29); Chloride 103 mmol/L (98-107); Glomerular Filtration Rate 85.4 mL/min (90-130); Glucose 129 mg/dL (65-115); Magnesium 2.1 mg/dL (1.7-2.3); Osmolality Calculated 290 mOsm/kg (285-295); Phosphorus 3.5 mg/dL (2.5-4.5); Potassium 4.7 mmol/L (3.5-5.1); Sodium 138 mmol/L (136-145)
[2023-03-23 05:26] LABS: ABG PCO2 48.9 mmHg (35-45); ABG PH Result 7.33 (7.35-7.45); Arterial Blood Gas Hematocrit 54.2 % (37-47); Base Excess ABG -0.8 mmol/L (-2.0-2.0); Blood Gas Operator Identificat JB; Blood Gas Sample Site Brachial, right; Blood Gas Sample Type Arterial; Oxygen Device BIPAP
[2023-03-23] MEDS: levothyroxine 175 mcg Tablet PO (05:39)
[2023-03-23] MEDS: methylPREDNISolone sod succ 40 MG in water for injection-sterile 1 ML 12 MG IVP ×2 (08:18→15:28)
[2023-03-23] MEDS: pantoprazole 40 mg SDV IVP ×2 (08:20→21:21)
[2023-03-23] MEDS: cefTRIAXone 1,000 MG in sodium chloride 0.9% (plus) 50 ML 100 MG IV (08:21)
[2023-03-23] MEDS: clopidogrel 75 mg Tablet PO (08:21)
[2023-03-23] MEDS: FUROsemide 10 mg/mL SDV 2mL 20 MG IVP (08:21)
[2023-03-23] MEDS: atorvastatin 40 mg Tablet 80 MG PO (08:21)
[2023-03-23] MEDS: aspirin 81 mg EC Tablet PO (08:21)
[2023-03-23] MEDS: docusate sodium 100 mg Capsule PO ×2 (08:21→18:26)
[2023-03-23] MEDS: enoxaparin 100 mg/mL Syringe 90 MG SUBCUT ×2 (08:28→21:21)
[2023-03-23 09:05] LABS: Basophils % 0.1 %; Eosinophils % 0.1 %; Hemoglobin 11.4 g/dL (11.5-15.3); Lymphocytes # 0.6 10^3/uL (0.8-4.8); Lymphocytes % 8.7 %; Mean Corpuscular HGB Conc 30.8 g/dL (30.0-36.0); Mean Corpuscular Hemoglobin 29.2 pg (28.0-34.0); Mean Corpuscular Volume 94.9 fl (81-99); Mean Platelet Volume 11.6 fL (7.4-10.4); Monocytes # 0.5 10^3/uL (0.2-0.9); Monocytes % 6.4 %; Neutrophils # 6.08 10^3/uL (1.8-7.7); Neutrophils % 84.3 %; Nucleated Red Blood Cells % 0 %; Platelet Count 149 10^3/cmm (130-400); Red Cell Distribution Width 12.9 % (12.1-15.1); White Blood Count 7.2 10^3/uL (4.0-10.0)
[2023-03-23 10:41] LABS: Troponin T (5th) Once 110 ng/L (0-10)
--- NOTE | 2023-03-23 14:33 | P.PN_ITS ---
Subjective Subjective: Patient was seen this morning, she continues to complain of shortness of breath and wheezing, she does report history of smoking, no fevers, no chills, her chest discomfort has resolved denies a cardiovascular history, Vitals/I&O/Wt Last Vital Signs Temp 97.8 F 03/22/23 21:30 Pulse 68 03/23/23 13:35 Resp 17 03/23/23 13:25 BP 113/69 03/23/23 12:00 Pulse Ox 94 03/23/23 13:25 O2 Del Method Nasal Cannula 03/23/23 13:25 O2 Flow Rate 3 03/23/23 13:25 FiO2 24 03/23/23 11:48 03/22/23 03/23/23 03/23/23 22:59 06:59 14:59 Intake Total 1100 / 1100 200 / 1300 411 / 411 Output Total 200 / 200 200 / 400 Balance 900 / 900 0 / 900 411 / 411 Weight last 48 hrs Weight 86.636 kg Physical Exam Const: COMMON NORMALS: no acute distress and patient oriented x3 Resp: COMMON NORMALS: normal respiratory effort, No retractions and No use of accessory muscles AUSCULTATION: crackles and wheezes Cardio: COMMON NORMALS: regular rate, regular rhythm, S1 normal heart sound present and S2 normal heart sound present RATE: regular rate RHYTHM: regular rhythm HEART SOUNDS: S1 normal heart sound present and S2 normal heart sound present GI: COMMON NORMALS: Normal to inspection, nondistended, normoactive bowel sounds present and non-tender Extremity: COMMON NORMALS: no pedal edema Neuro: COMMON NORMALS: patient oriented x3 Psych: COMMON NORMALS: mental status grossly normal Data 03/23/23 07:22 03/23/23 03:24 A&P Assessment and plan (1) Tobacco dependence due to cigarettes: (2) Hypertensive urgency: (3) History of pulmonary embolism: (4) Cigarette nicotine dependence: Qualifiers: Substance use status: uncomplicated Qualified Code(s): F17.210 - Nicotine dependence, cigarettes, uncomplicated (5) Acute on chronic respiratory failure with hypoxia and hypercapnia: (6) Respiratory distress: (7) Pneumonia: (8) Acute exacerbation of chronic obstructive pulmonary disease: (9) Insomnia: Qualifiers: Insomnia type: unspecified Qualified Code(s): G47.00 - Insomnia, unspe cified (10) Non-STEMI (non-ST elevated myocardial infarction): (11) Hyperkalemia: Plan Acute COPD exacerbation Acute hypoxic hypercapnic respite failure NSTEMI History of pulmonary embolism, Pradaxa on hold as she is on therapeutic Lovenox Continue Solu-Medrol 40 mg IV every 8 hours Continue doxycycline 100 twice daily Continue DuoNeb Continue budesonide Respiratory therapy eval Patient care history of pulm hypertension, will request echo in the morning Clinically does not look fluid overloaded however BNP is high which could be due to underlying pulm hypertension, received 1 dose of Lasix, hold for now Continue BiPAP Given NSTEMI, will move to [facility] Patient counseled regarding smoking cessation she already has quitting date in April Will start cardiac diet in the morning Serial EKGs, serial troponins, telemetry monitoring, cardiac echo, has been loaded with Plavix continue aspirin, Plavix, statin, on therapeutic Lovenox Based on clinical progress will consider stress testing versus discussing with cardiology about performing angioplasty CODE STATUS discussed in detail with the patient: Patient is stating that in case of respiratory distress she is okay with intubation however in case she loses her pulse/cardiac arrest then she does not want to be resuscitated with chest compressions and defibrillation or intubation Hyperkalemia, resolved BRYAN: Resolved Non-STEMI: Significant delta troponin, no active chest pain, will request echo to see wall motion abnormality As above Patient lives alone at home uses 4 L of oxygen at baseline She also have sleep apnea uses CPAP at night Plan for today cardiac echo, continue Solu-Medrol, switch to doxycycline continue nebulizer treatments, monitor respiratory status closely telemetry monitoring, monitor for recurrent chest pain, Attestations Medical Necessity Statement*: Patient requires hospitalization for acute COPD exacerbation, respiratory failure, NSTEMI, Diagnoses Tobacco dependence due to cigarettes F17.210 Hypertensive urgency I16.0 History of pulmonary embolism Z86.711 Cigarette nicotine dependence F17.210 Substance use status: uncomplicated Acute on chronic respiratory failure with hypoxia and hypercapnia J96.21; J96.22 Respiratory distress R06.03 Pneumonia J18.9 Acute exacerbation of chronic obstructive pulmonary disease J44.1 Insomnia G47.00 Insomnia type: unspecified Non-STEMI (non-ST elevated myocardial infarction) I21.4 Hyperkalemia E87.5
--- NOTE | 2023-03-23 15:45 | PC.NURSE ---
Patient transferred to CSU at approximately 1545
[2023-03-23] MEDS: doxycycline 100 mg Tablet PO (18:26)
[2023-03-23] MEDS: sucralfate 1 gm Tablet PO ×2 (18:26→21:21)
--- NOTE | 2023-03-23 21:03 | PC.NURSE ---
Patient asking for breathing treatment upon initial assessment this shift. RT notified. When going to tell patient that RT had been notified of her request she became agitated. Saying she was going to leave AMA if she didn't get her treatment, that she was in the hospital because she needed help and wasn't getting the help she needed. RT arrived shortly after and pt calmed.
[2023-03-23] MEDS: budesonide 0.5 mg/2 mL Neb INHALATION (21:08)
[2023-03-23] MEDS: quetiapine 100 mg Tablet 200 MG PO (21:21)
[2023-03-24] VITALS (66 sets, daily range): BP systolic 125–158; BP diastolic 67–92; PULSE 50–67; RESP 13–33; TEMP 36.6–37.2; O2SAT 95–100
--- NOTE | 2023-03-24 01:11 | PC.NURSE ---
Iv catheter found still taped to arm, but no longer inserted. Small amount of bleeding at site, no swelling or bruising. Covered with 4x4 and Coband. Patient refusing new IV at this time, educated on need for IV due to her still receiving medications through it. Hospitalist notified, given orders to hold IV medications for the night, let her rest and attempt IV insertion again in the morning.
[2023-03-24 04:30] LABS: Basophils % 0.1 %; Eosinophils % 0.3 %; Hematocrit 36.1 % (37.0-47.0); Hemoglobin 11.3 g/dL (11.5-15.3); Lymphocytes # 1.2 10^3/uL (0.8-4.8); Lymphocytes % 12.6 %; Mean Corpuscular HGB Conc 31.3 g/dL (30.0-36.0); Mean Corpuscular Hemoglobin 29.1 pg (28.0-34.0); Mean Platelet Volume 11.2 fL (7.4-10.4); Monocytes # 0.6 10^3/uL (0.2-0.9); Monocytes % 6.6 %; Neutrophils # 7.33 10^3/uL (1.8-7.7); Neutrophils % 79.9 %; Nucleated Red Blood Cells % 0 %; Platelet Count 152 10^3/cmm (130-400); Red Blood Count 3.88 10^6/uL (4.1-5.3); White Blood Count 9.2 10^3/uL (4.0-10.0)
[2023-03-24 04:56] LABS: Alanine Aminotransferase 41 U/L (0-33); Albumin Level 3.8 g/dL (3.5-5.2); Alkaline Phosphatase 70 U/L (35-105); Anion Gap 11.1 (5-19); Aspartate Amino Transferase 12 U/L (0-32); Blood Urea Nitrogen 19 mg/dL (8-23); C Reactive Protein 5.2 mg/L (0.0-4.9); Calcium 8.7 mg/dL (8.5-10.5); Carbon Dioxide 31 mmol/L (22-29); Chloride 103 mmol/L (98-107); Globulin 2.2 g/dL (1.3-4.6); Glomerular Filtration Rate 73.2 mL/min (90-130); Glucose 138 mg/dL (65-115); Magnesium 2.1 mg/dL (1.7-2.3); Osmolality Calculated 296 mOsm/kg (285-295); Phosphorus 2.4 mg/dL (2.5-4.5); Potassium 4.1 mmol/L (3.5-5.1); Sodium 141 mmol/L (136-145); Total Bilirubin 0.2 mg/dL (0.15-1.2)
[2023-03-24 05:07] LABS: NT Pro B Type Natriuretic Pept 4560 pg/mL (0-125)
[2023-03-24] MEDS: sucralfate 1 gm Tablet PO ×4 (06:09→20:12)
[2023-03-24] MEDS: levothyroxine 175 mcg Tablet PO (06:09)
[2023-03-24] MEDS: budesonide 0.5 mg/2 mL Neb INHALATION ×2 (08:26→19:57)
[2023-03-24] MEDS: doxycycline 100 mg Tablet PO ×2 (10:26→17:22)
[2023-03-24] MEDS: potassium chloride ER 20 mEq Tablet PO (10:26)
[2023-03-24] MEDS: atorvastatin 40 mg Tablet 80 MG PO (10:26)
[2023-03-24] MEDS: docusate sodium 100 mg Capsule PO ×2 (10:26→17:22)
[2023-03-24] MEDS: clopidogrel 75 mg Tablet PO (10:27)
[2023-03-24] MEDS: aspirin 81 mg EC Tablet PO (10:27)
[2023-03-24] MEDS: methylPREDNISolone sod succ 40 MG in water for injection-sterile 1 ML 12 MG IVP ×2 (10:27→16:26)
[2023-03-24] MEDS: FUROsemide 10 mg/mL SDV 4mL 40 MG IVP (10:30)
[2023-03-24] MEDS: pantoprazole 40 mg SDV IVP ×2 (10:30→19:57)
[2023-03-24] MEDS: enoxaparin 100 mg/mL Syringe 90 MG SUBCUT ×2 (10:31→20:38)
--- NOTE | 2023-03-24 10:51 | PM.CONSULT ---
Providers/Reason For Consult Consulting Physician/Specialty*: Dr. Castellanos, Cardiology Reason for Consult*: NSTEMI Attending Physician: Freddie Kelly MD Primary Care Provider: HEAVEN Guajardo History of Present Illness History of Present Illness Anne Turcios is a 62 year old female with past medical history of COPD on home oxygen 4L, severe FRANCI on CPAP, hypothyroidism, pulmonary hypertension (diagnosed on CT scan with dilated PA), h/o saddle pulmonary embolism in 2017, heterozygous factor V Leiden, on chronic Pradaxa, h/o LGIB,hypothyroidism, dyslipidemia and h/o smoking (51 year history of smoking, smoking 1 Pk in 3 days). No prior CAD or stroke/TIA history. She presented with chief complaint of sudden onset shortness of breath and retrosternal chest heaviness.? No fever, productive cough. She ? In the ER, she was diagnosed with acute hypoxic hypercapnic respiratory failure and was placed on BiPaP. She is being treated for COPD exacerbation. EKG did not show any significant ST-T wave changes. Troponin T increased from 28--105--136. No prior stress testing. CTA chest with no PE. Coronary calcification noted. Echo showed decrease in LV systolic function with LVEF of 45-50% with anteroseptal and inferolateral montiel. No chest pain at the time of examination. Review of Systems Const: Denies: fever(s) Eyes: Denies: change in vision ENMT: Denies: throat pain Card: Reports: chest pain Resp: Reports: dyspnea; Denies: wheezing or stridor GI: Denies: abdominal pain : Denies: dribbling Skin/Breast: Denies: rash Neuro: Denies: headache(s), weakness in extremities, difficulty walking or frequent falls Psych: Denies: anxiety or depression Endo: Denies: tired all the time Medications/Allergies Home Medications Medication Instructions Recorded Confirmed Last Taken Type albuterol sulfate 90 mcg/actuation 2 puff inhalation Q4H PRN 10/28/19 03/23/23 03/16/21 History aerosol inhaler (ProAir HFA) Shortness Of Breath atorvastatin 20 mg tablet 20 mg PO BEDTIME@20 12/09/20 03/23/23 03/21/23 History albuterol sulfate 2.5 mg/3 mL 2.5 mg inhalation Q4H while awake 05/26/22 03/23/23 Unknown History (0.083 %) solution for nebulization for 5 days-hold inhaler while on nebs docusate sodium 100 mg capsule 100 mg PO BID 05/26/22 03/23/23 03/22/23 History (Colace) levothyroxine 175 mcg tablet 175 mcg PO DAILY@06 05/26/22 03/23/23 03/22/23 History oxygen-air delivery systems ##1 06/24/22 03/23/23 Unknown History fluticasone fur. 100 mcg-umeclid 1 inh inhalation DAILY #60 ea 11/02/22 03/23/23 03/22/23 Rx 62.5 mcg-vilant 25 mcg inhalat.powder (Trelegy Ellipta) dabigatran etexilate 75 mg capsule 75 mg PO BID #60 caps 12/29/22 03/23/23 03/22/23 Rx (Pradaxa) mirtazapine 15 mg disintegrating 15 mg PO .9 pm #30 tabs 02/02/23 03/23/23 03/21/23 Rx tablet sertraline 100 mg tablet (Zoloft) 100 mg PO .morning #30 tabs 03/19/23 03/23/23 03/22/23 Rx montelukast 10 mg tablet 10 mg PO .EVENING 03/23/23 03/23/23 03/21/23 History quetiapine 200 mg tablet 200 mg PO .9PM 03/23/23 03/23/23 03/21/23 History Allergies Allergy/AdvReac Type Severity Reaction Status Date / Time hydroxyzine AdvReac Severe ADR-Heartbu Verified 03/22/23 16:55 rn Current Medications Generic Name Dose Route Start Last Admin Trade Name Freq PRN Reason Stop Dose Admin Albuterol/Ipratropium 3 ml 03/22/23 21:04 03/23/23 21:08 Ipratropium-Albuterol 3 Ml Neb INHALATION 3 ml Q6H PRN Administration SHORTNESS OF BREATH Aspirin 81 mg 03/23/23 09:00 03/24/23 10:27 Aspirin 81 Mg Ec Tablet PO 81 mg DAILY MELE Administration Atorvastatin Calcium 80 mg 03/23/23 09:00 03/24/23 10:26 Atorvastatin 40 Mg Tablet PO 80 mg DAILY MELE Administration Budesonide 0.5 mg 03/23/23 20:00 03/24/23 08:26 Budesonide 0.5 Mg/2 Ml Neb INHALATION 0.5 mg BID.RESPIRATORY MELE Administration Clopidogrel Bisulfate 75 mg 03/23/23 09:00 03/24/23 10:27 Clopidogrel 75 Mg Tablet PO 75 mg DAILY MELE Administration Docusate Sodium 100 mg 03/23/23 09:00 03/24/23 10:26 Docusate Sodium 100 Mg Capsule PO 100 mg BID MELE Administration Doxycycline Monohydrate 100 mg 03/23/23 18:00 03/24/23 10:26 Doxycycline 100 Mg Tablet PO 100 mg BID MELE Administration Protocol Enoxaparin Sodium 90 mg 03/22/23 21:30 03/24/23 10:31 Enoxaparin 100 Mg/Ml Syringe 1 mg/kg (90 mg) 90 mg SUBCUT Administration Q12H MELE Methylprednisolone Sodium 1 mls @ 12 mls/hr 03/23/23 07:45 03/24/23 10:45 Succinate 40 mg/ Sterile Water IVP Infused Q8H MELE Infusion Levothyroxine Sodium 175 mcg 03/23/23 06:00 03/24/23 06:09 Levothyroxine 175 Mcg Tablet PO 175 mcg DAILY@06 MELE Administration Nitroglycerin 0.4 mg 03/22/23 16:52 03/22/23 17:01 Nitroglycerin 0.4 Mg Sublingual Tablet SUBLINGUAL 0.4 mg Q5M PRN Administration CHEST PAIN Pantoprazole Sodium 40 mg 03/23/23 08:00 03/24/23 10:30 Pantoprazole 40 Mg Sdv IVP 40 mg Q12H MELE Administration Quetiapine Fumarate 200 mg 03/22/23 21:45 03/23/23 21:21 Quetiapine 100 Mg Tablet PO 200 mg BEDTIME MELE Administration Sucralfate 1 gm 03/23/23 11:00 03/24/23 10:25 Sucralfate 1 Gm Tablet PO 1 gm AC&BEDTIME MELE Administration PFSH Acute PFSH: Medical History Chronic post-traumatic stress disorder Cigarette nicotine dependence Insomnia Major depressive disorder, recurrent severe without psychotic features Obstructive sleep apnea Psychiatric care Pulmonary embolism Surgical History History of tubal ligation Status post colonoscopy (03/17/21) Social History Smoking and tobacco status: current every day smoker cigarettes Packs smoked per day: 0.5 Years cigarettes smoked: 50 Quit status (tobacco): not considering quitting Second hand smoke exposure: No Smoking risk assessment/counseling performed?: Yes Alcohol intake: current Alcohol intake frequency: holidays/special occasions only Alcohol type: hard liquor Substance/Drug Use: never Lives independently: Yes Household members: none Marital status: Current occupational status: disabled Pets and animals: No Do you think of yourself as: Straight/Heterosexual Current gender identity: Female Vitals/I&O/Wt Last Vital Signs Temp 98.3 F 03/24/23 03:57 Pulse 60 03/24/23 08:00 Resp 16 03/24/23 08:00 BP 143/92 03/24/23 07:57 Pulse Ox 97 03/24/23 08:00 O2 Del Method Nasal Cannula 03/24/23 08:00 O2 Flow Rate 4 03/24/23 08:00 FiO2 24 03/24/23 10:00 03/23/23 03/24/23 03/24/23 22:59 06:59 14:59 Intake Total 480 / 892 241 / 241 Balance 412 480 / 892 241 / 241 Weight last 48 hrs Weight 191 lb Physical Exam Narrative: GENERAL: overweight woman laying in bed, in no acute distress HEENT: Extraocular movement intact. No pallor or icterus. NECK: central trachea, No JVD, no carotid bruit. CARDIOVASCULAR SYSTEM: S1-S2 regular. No murmur rubs or gallops. RESPIRATORY SYSTEM: Chest clear to auscultation. +wheezes , no rhonchi or rubs heard. No use of accessory muscles. ABDOMEN: Soft, nontender and nondistended. Normal bowel sounds present. EXTREMITIES: No cyanosis or edema. No signs of chronic venous insufficiency. MARKETING SYSTEMS ANALYST: Patient is alert oriented ?3. No focal neurological deficits. SKIN: Normal turgor and temperature. No breakdown, rash or nail changes noted. PSYCH: Normal insight and judgment. Data 03/24/23 03:51 03/24/23 03:51 A&P Assessment and plan (1) Non-STEMI (non-ST elevated myocardial infarction): I will plan for left and right heart cathetarization. Risks and benefits were discussed with the patients. Alternate management options were discussed with the patient as well. Possible complications including risk of heart attack stroke and , coronary perforation, dissection, arrhythmia, cardiac tamponade in urgent CABG were discussed with the patient as well. Plan is to proceed for the procedure at the earliest. Plan Acute on chronic respiratory failure COPD exacerbation h/o PE H/o LGIB Chronic active smoker CAD based on imaging Pulmonary HTN Severe FRANCI Obesity Coding Level of Care Code 84064 Diagnoses Non-STEMI (non-ST elevated myocardial infarction) I21.4
[2023-03-24] MEDS: ipratropium-albuterol 3 mL Neb INHALATION ×2 (15:23→19:57)
--- NOTE | 2023-03-24 15:33 | PM.PN ---
Subjective Subjective: - Patient was seen this morning, her friend is at bedside -I reviewed the medical records, -Patient has a history of COPD, emphysema, pulm hypertension for which she follows up with Dr. Russell -Back in April 2022 she had an episode of cardiac arrest, she was here at [facility], and she was transferred to [facility] she tells me it was because of pulmonary hypertension -I reviewed her discharge summary from [facility] she was transferred for cardiac arrest, the thought was the cardiac arrest was from acute hypoxic respiratory failure, there was also concerns for anoxic brain injury versus press syndrome, she had aggressive blood pressure control, she also had concern for central visual loss, for which she was supposed to follow-up with ophthalmology, from the records I see I cannot see any history of coronary angiogram or any stress testing -Reviewed her medical records from [facility], including her oncology note, Dr. Eli's note -She denies a history of coronary angiogram or stress testing -She denies going to the pulm hypertension clinic at [place] -I had a discussion about her elevated troponins, which could be from her respiratory failure and or pulm hypertension, which has improved, but her echocardiogram shows mildly reduced ejection fraction of 45 to 50%, and hypokinesia of the inferior and inferior lateral montiel, and anteroseptal montiel, my concern is is that she she might have a compromised coronary artery -After discussing the risk and benefits, she voiced understanding, all questions are, agreed to cardiology consultation -Spoke to cardiology, Dr. fajardo, will consult Vitals/I&O/Wt Last Vital Signs Temp 98.2 F 03/24/23 11:52 Pulse 55 L 03/24/23 15:25 Resp 18 03/24/23 15:25 BP 141/67 03/24/23 11:52 Pulse Ox 97 03/24/23 15:25 O2 Del Method Nasal Cannula 03/24/23 15:25 O2 Flow Rate 4 03/24/23 15:25 FiO2 24 03/24/23 14:00 03/24/23 03/24/23 03/24/23 06:59 14:59 22:59 Intake Total 480 / 892 241 / 241 Output Total 1750 / 1750 Balance 480 / 892 -1509 / -1509 Weight last 48 hrs Weight 86.636 kg Physical Exam Const: COMMON NORMALS: no acute distress and patient oriented x3 Resp: COMMON NORMALS: normal respiratory effort, No retractions, No use of accessory muscles and clear to auscultation bilaterally AUSCULTATION: clear to auscultation bilaterally Cardio: COMMON NORMALS: regular rate, regular rhythm, S1 normal heart sound present and S2 normal heart sound present RATE: regular rate RHYTHM: regular rhythm HEART SOUNDS: S1 normal heart sound present and S2 normal heart sound present GI: COMMON NORMALS: Normal to inspection, nondistended, normoactive bowel sounds present and non-tender Extremity: COMMON NORMALS: no pedal edema Neuro: COMMON NORMALS: patient oriented x3 Psych: COMMON NORMALS: mental status grossly normal Urinary Catheter Management: [place]: Cath Placed During This Visit: yes Urinary Catheter Date of Insertion: 03/24/23 Urinary Catheter Time of Insertion: 11:29 Data 03/24/23 03:51 03/24/23 03:51 A&P Assessment and plan (1) Tobacco dependence due to cigarettes: (2) Hypertensive urgency: (3) History of pulmonary embolism: (4) Cigarette nicotine dependence: Qualifiers: Substance use status: uncomplicated Qualified Code(s): F17.210 - Nicotine dependence, cigarettes, uncomplicated (5) Acute on chronic respiratory failure with hypoxia and hypercapnia: (6) Respiratory distress: (7) Pneumonia: (8) Acute exacerbation of chronic obstructive pulmonary disease: (9) Insomnia: Qualifiers: Insomnia type: unspecified Qualified Code(s): G47.00 - Insomnia, unspecified (10) Non-STEMI (non-ST elevated myocardial infarction): (11) Hyperkalemia: (12) Systolic CHF, acute: (13) Factor V Leiden mutation: (14) History of GI bleed: (15) Pulmonary hypertension: (16) Obstructive sleep apnea: Plan Acute COPD exacerbation Severe centrilobular emphysema Acute hypoxic hypercapnic respite failure NSTEMI History of pulmonary embolism, developed rectal bleeding on Pradaxa, she stopped taking Pradaxa, underwent EGD and colonoscopy, then eventually was placed back on low-dose Pradaxa Factor V heterozygosity Pulmonary hypertension Continue Solu-Medrol 40 mg IV every 8 hours Continue doxycycline 100 twice daily Continue DuoNeb Continue budesonide Respiratory therapy eval Cardiac echo ?LV systolic function is mildly reduced with EF of 45-50%.? Mild ?hypokinesis of anteroseptal wall.? Moderate hypokinesis of ?inferior and inferolateral montiel. ?Left atrial dilation ?Trace mitral regurgitation ?Trace aortic regurgitation ?Trace tricuspid regurgitation ?Compared to prior echocardiogram from 2020, LV systolic function ?is mildly reduced now with above mentioned regional wall motion ?abnormalities are noted Clinically does not look fluid overloaded however BNP is high which could be due to underlying pulm hypertension, 1 dose of Lasix today Continue BiPAP Currently in [facility] given NSTEMI Patient counseled regarding smoking cessation she already has quitting date in April Will start cardiac diet in the morning Serial EKGs, serial troponins, telemetry monitoring, cardiac echo, has been loaded with Plavix continue aspirin, Plavix, statin, on therapeutic Lovenox Cardiology consulted CODE STATUS discussed in detail with the patient: Patient is stating that in case of respiratory distress she is okay with intubation however in case she loses her pulse/cardiac arrest then she does not want to be resuscitated with chest compressions and defibrillation or intubation Hyperkalemia, resolved BRYAN: Resolved Non-STEMI: Significant delta troponin, no active chest pain, will request echo to see wall motion abnormality As above Patient lives alone at home uses 4 L of oxygen at baseline She also have sleep apnea uses CPAP at night Plan for today continue aspirin, Plavix, therapeutic Lovenox, cardiology consulted -I reviewed the medical records, -Patient has a history of COPD, emphysema, pulm hypertension for which she follows up with Dr. Russell -Back in April 2022 she had an episode of cardiac arrest, she was here at [facility], and she was transferred to [facility] she tells me it was because of pulmonary hypertension -I reviewed her discharge summary from [facility] she was transferred for cardiac arrest, the thought was the cardiac arrest was from acute hypoxic respiratory failure, there was also concerns for anoxic brain injury versus press syndrome, she had aggressive blood pressure control, she also had concern for central visual loss, for which she was supposed to follow-up with ophthalmology, from the records I see I cannot see any history of coronary angiogram or any stress testing -Reviewed her medical records from [facility], including her oncology note, Dr. Eli's note -She denies a history of coronary angiogram or stress testing -She denies going to the pulm hypertension clinic at [place] -I had a discussion about her elevated troponins, which could be from her respiratory failure and or pulm hypertension, which has improved, but her echocardiogram shows mildly reduced ejection fraction of 45 to 50%, and hypokinesia of the inferior and inferior lateral montiel, and anteroseptal montiel, my concern is is that she she might have a compromised coronary artery -After discussing the risk and benefits, she voiced understanding, all questions are, agreed to cardiology consultation -Spoke to cardiology, Dr. fajardo, will consult Attestations Medical Necessity Statement*: Patient requires hospitalization for acute hypoxic respiratory failure, NSTEMI, echocardiogram now with wall motion abnormalities Diagnoses Tobacco dependence due to cigarettes F17.210 Hypertensive urgency I16.0 History of pulmonary embolism Z86.711 Cigarette nicotine dependence F17.210 Substance use status: uncomplicated Acute on chronic respiratory failure with hypoxia and hypercapnia J96.21; J96.22 Respiratory distress R06.03 Pneumonia J18.9 Acute exacerbation of chronic obstructive pulmonary disease J44.1 Insomnia G47.00 Insomnia type: unspecified Non-STEMI (non-ST elevated myocardial infarction) I21.4 Hyperkalemia E87.5 Systolic CHF, acute I50.21 Factor V Leiden mutation D68.51 History of GI bleed Z87.19 Pulmonary hypertension I27.20 Obstructive sleep apnea G47.33
--- NOTE | 2023-03-24 17:38 | P.CONIM_ITS ---
Providers/Reason For Consult Consulting Physician/Specialty*: Interventional cardiology Reason for Consult*: Consider right and left heart catheterization Requesting Physician: Jasmin Attending Physician: Freddie Kelly MD Primary Care Provider: HEAVEN Guajardo History of Present Illness History of Present Illness Anne Turcios is a 62 year old female who is fairly seriously chronically ill. She is admitted to the hospital frequently with shortness of breath and exacerbations of her underlying medical problems. She was admitted 2 days ago with shortness of breath and respiratory failure. She developed a respiratory acidosis. Her troponin was elevated. The initial troponin was 28, the second 105 and the third 108. Her BNP is quite elevated at 4568. She underwent CT of the chest which was negative for pulmonary embolism. She has an increased pulmonary artery size suggesting pulmonary hypertension. Her echo reveals a decrease in her ejection fraction from previous evaluations now down around 45 to 50%. There is a suggestion of regional wall motion abnormalities. The pulmonary artery pressure could not be calculated due to an insufficient tricuspid regurgitation envelope. She was hypertensive when she was admitted. She was originally placed on BiPAP which has improved her situation. She has a long history of tobacco abuse which continues. She has psychiatric issues PTSD and depression. She has a history of sleep apnea. She was found to have a factor V Leiden mutation and then had a pulmonary embolism. She has been off anticoagulants for a couple years. She has been known to have pulmonary hypertension in the past. She uses oxygen chronically. There is a questionable history of a cardiac arrest with one of the respiratory insufficiency episodes. She has a longstanding history of hypertension. She has a history of methamphetamine abuse and dyslipidemia. Dr. Castellanos saw her earlier and on the basis of her clinical status asked me to perform coronary angiography to include right and left heart catheterization. Patient has become more compensated today. Her creatinine is normal. Review of Systems Narrative: Review of systems mainly centers around her shortness of breath, underlying lung disease and pulmonary hypertension. Medications/Allergies Home Medications Medication Instructions Recorded Confirmed Last Taken Type albuterol sulfate 90 mcg/actuation 2 puff inhalation Q4H PRN 10/28/19 03/23/23 03/16/21 History aerosol inhaler (ProAir HFA) Shortness Of Breath atorvastatin 20 mg tablet 20 mg PO BEDTIME@20 12/09/20 03/23/23 03/21/23 History albuterol sulfate 2.5 mg/3 mL 2.5 mg inhalation Q4H while awake 05/26/22 03/23/23 Unknown History (0.083 %) solution for nebulization for 5 days-hold inhaler while on nebs docusate sodium 100 mg capsule 100 mg PO BID 05/26/22 03/23/23 03/22/23 History (Colace) levothyroxine 175 mcg tablet 175 mcg PO DAILY@06 05/26/22 03/23/23 03/22/23 History oxygen-air delivery systems ##1 06/24/22 03/23/23 Unknown History fluticasone fur. 100 mcg-umeclid 1 inh inhalation DAILY #60 ea 11/02/22 03/23/23 03/22/23 Rx 62.5 mcg-vilant 25 mcg inhalat.powder (Trelegy Ellipta) dabigatran etexilate 75 mg capsule 75 mg PO BID #60 caps 12/29/22 03/23/23 03/22/23 Rx (Pradaxa) mirtazapine 15 mg disintegrating 15 mg PO .9 pm #30 tabs 02/02/23 03/23/23 03/21/23 Rx tablet sertraline 100 mg tablet (Zoloft) 100 mg PO .morning #30 tabs 03/19/23 03/23/23 03/22/23 Rx montelukast 10 mg tablet 10 mg PO .EVENING 03/23/23 03/23/23 03/21/23 History quetiapine 200 mg tablet 200 mg PO .9PM 03/23/23 03/23/23 03/21/23 History Allergies Allergy/AdvReac Type Severity Reaction Status Date / Time hydroxyzine AdvReac Severe ADR-Heartbu Verified 03/22/23 16:55 rn Current Medications Generic Name Dose Route Start Last Admin Trade Name Freq PRN Reason Stop Dose Admin Albuterol/Ipratropium 3 ml 03/22/23 21:04 03/24/23 15:23 Ipratropium-Albuterol 3 Ml Neb INHALATION 3 ml Q6H PRN Administration SHORTNESS OF BREATH Aspirin 81 mg 03/23/23 09:00 03/24/23 10:27 Aspirin 81 Mg Ec Tablet PO 81 mg DAILY MELE Administration Atorvastatin Calcium 80 mg 03/23/23 09:00 08/09/23 10:26 Atorvastatin 40 Mg Tablet PO 80 mg DAILY MELE Administration Budesonide 0.5 mg 03/23/23 20:00 03/24/23 08:26 Budesonide 0.5 Mg/2 Ml Neb INHALATION 0.5 mg BID.RESPIRATORY MELE Administration Clopidogrel Bisulfate 75 mg 03/23/23 09:00 03/24/23 10:27 Clopidogrel 75 Mg Tablet PO 75 mg DAILY MELE Administration Docusate Sodium 100 mg 03/23/23 09:00 03/24/23 17:22 Docusate Sodium 100 Mg Capsule PO 100 mg BID MELE Administration Doxycycline Monohydrate 100 mg 03/23/23 18:00 03/24/23 17:22 Doxycycline 100 Mg Tablet PO 100 mg BID MELE Administration Protocol Enoxaparin Sodium 90 mg 03/22/23 21:30 03/24/23 10:31 Enoxaparin 100 Mg/Ml Syringe 1 mg/kg (90 mg) 90 mg SUBCUT Administration Q12H MELE Methylprednisolone Sodium 1 mls @ 12 mls/hr 03/23/23 07:45 03/24/23 16:33 Succinate 40 mg/ Sterile Water IVP Infused Q8H MELE Infusion Levothyroxine Sodium 175 mcg 03/23/23 06:00 03/24/23 06:09 Levothyroxine 175 Mcg Tablet PO 175 mcg DAILY@06 MELE Administration Nitroglycerin 0.4 mg 03/22/23 16:52 03/22/23 17:01 Nitroglycerin 0.4 Mg Sublingual Tablet SUBLINGUAL 0.4 mg Q5M PRN Administration CHEST PAIN Pantoprazole Sodium 40 mg 03/23/23 08:00 03/24/23 10:30 Pantoprazole 40 Mg Sdv IVP 40 mg Q12H MELE Administration Quetiapine Fumarate 200 mg 03/22/23 21:45 03/23/23 21:21 Quetiapine 100 Mg Tablet PO 200 mg BEDTIME MELE Administration Sucralfate 1 gm 03/23/23 11:00 03/24/23 16:26 Sucralfate 1 Gm Tablet PO 1 gm AC&BEDTIME MELE Administration PFSH Acute PFSH: Medical History Chronic post-traumatic stress disorder Cigarette nicotine dependence Insomnia Major depressive disorder, recurrent severe without psychotic features Obstructive sleep apnea Psychiatric care Pulmonary embolism Surgical History History of tubal ligation Status post colonoscopy (03/17/21) Social History Smoking and tobacco status: current every day smoker cigarettes Packs smoked per day: 0.5 Years cigarettes smoked: 50 Quit status (tobacco): not considering quitting Second hand smoke exposure: No Smoking risk assessment/counseling performed?: Yes Alcohol intake: current Alcohol intake frequency: holidays/special occasions o nly Alcohol type: hard liquor Substance/Drug Use: never Lives independently: Yes Household members: none Marital status: Current occupational status: disabled Pets and animals: No Do you think of yourself as: Straight/Heterosexual Current gender identity: Female Vitals/I&O/Wt Last Vital Signs Temp 98.2 F 03/24/23 11:52 Pulse 55 L 03/24/23 17:30 Resp 18 03/24/23 17:30 BP 135/67 03/24/23 17:30 Pulse Ox 98 03/24/23 17:30 O2 Del Method Nasal Cannula 03/24/23 15:25 O2 Flow Rate 4 03/24/23 15:25 FiO2 24 03/24/23 16:00 03/24/23 03/24/23 03/24/23 06:59 14:59 22:59 Intake Total 480 / 892 241 / 241 1 / 242 Output Total 1750 / 1750 Balance 480 / 892 -1509 / -1509 1 / -1508 Physical Exam Narrative: GENERAL: In general she looks older than her stated age and is mildly short of breath at rest HEENT: Exam within normal limits. NECK: Supple without jugular vein distention. The carotid upstroke is normal without bruits. BACK: Exam normal. LUNGS: Clear. HEART: Regular rate and rhythm. ABDOMEN: Benign without organomegaly or tenderness. EXTREMITIES: No edema. NEUROLOGIC: Exam normal. SKIN: Unremarkable. Urinary Catheter Management: Deluca: Cath Placed During This Visit: yes Urinary Catheter Date of Insertion: 03/24/23 Urinary Catheter Time of Insertion: 11:29 Data 03/24/23 03:51 03/24/23 03:51 A&P Assessment and plan (1) History of GI bleed: (2) Factor V Leiden mutation: (3) Systolic CHF, acute: (4) Non-STEMI (non-ST elevated myocardial infarction): (5) Tobacco dependence due to cigarettes: (6) Hypertensive urgency: (7) History of pulmonary embolism: (8) Acute on chronic respiratory failure with hypoxia and hypercapnia: (9) Respiratory distress: (10) Pulmonary hypertension: (11) Obstructive sleep apnea: Consult Attestations Medical Necessity Statement: We will plan to perform right left heart catheterization tomorrow. Hopefully tomorrow morning but if the cases go along it we will have to be in the afternoon. I spoke to her about this at length. We went through the risks and the benefits. and Moderate Time for a total of 40 minutes, includes reviewing past or interval history, examining/interviewing patient, counseling patient/family/other support, updating patient/family/other support, discussing plan of care with staff, communicating with other healthcare providers and documenting encounter Diagnoses History of GI bleed Z87.19 Factor V Leiden mutation D68.51 Systolic CHF, acute I50.21 Non-STEMI (non-ST elevated myocardial infarction) I21.4 Tobacco dependence due to cigarettes F17.210 Hypertensive urgency I16.0 History of pulmonary embolism Z86.711 Acute on chronic respiratory failure with hypoxia and hypercapnia J96.21; J96.22 Respiratory distress R06.03 Pulmonary hypertension I27.20 Obstructive sleep apnea G47.33
[2023-03-24] MEDS: quetiapine 100 mg Tablet 200 MG PO (20:12)
[2023-03-24] MEDS: methylPREDNISolone sod succ 40 MG in water for injection-sterile 1 ML IVP (23:46)
[2023-03-25] VITALS (143 sets, daily range): BP systolic 116–160; BP diastolic 52–86; PULSE 44–61; RESP 14–166; TEMP 36.3–36.8; O2SAT 85–100
[2023-03-25 04:09] LABS: Basophils % 0.1 %; Hematocrit 40.9 % (37.0-47.0); Hemoglobin 12.6 g/dL (11.5-15.3); Lymphocytes # 0.6 10^3/uL (0.8-4.8); Lymphocytes % 7.2 %; Mean Corpuscular HGB Conc 30.8 g/dL (30.0-36.0); Mean Corpuscular Hemoglobin 28.8 pg (28.0-34.0); Mean Corpuscular Volume 93.6 fl (81-99); Mean Platelet Volume 11.3 fL (7.4-10.4); Monocytes # 0.3 10^3/uL (0.2-0.9); Monocytes % 3.5 %; Neutrophils # 7.35 10^3/uL (1.8-7.7); Neutrophils % 88.7 %; Nucleated Red Blood Cells % 0 %; Platelet Count 184 10^3/cmm (130-400); Red Blood Count 4.37 10^6/uL (4.1-5.3); Red Cell Distribution Width 12.9 % (12.1-15.1); White Blood Count 8.3 10^3/uL (4.0-10.0)
[2023-03-25 04:45] LABS: Anion Gap 11.9 (5-19); Blood Urea Nitrogen 18 mg/dL (8-23); Calcium 9.1 mg/dL (8.5-10.5); Carbon Dioxide 31 mmol/L (22-29); Chloride 104 mmol/L (98-107); Glucose 170 mg/dL (65-115); NT Pro B Type Natriuretic Pept 3188 pg/mL (0-125); Osmolality Calculated 300 mOsm/kg (285-295); Potassium 4.9 mmol/L (3.5-5.1); Sodium 142 mmol/L (136-145)
[2023-03-25] MEDS: levothyroxine 175 mcg Tablet PO (06:32)
[2023-03-25] MEDS: sucralfate 1 gm Tablet PO ×4 (06:32→20:25)
[2023-03-25] MEDS: budesonide 0.5 mg/2 mL Neb INHALATION ×2 (07:34→20:16)
--- NOTE | 2023-03-25 08:23 | XACV_ITS ---
Exam Room: [facility] Ht: 163 cm Wt: 87 kg BSA: 2.01 m2 Gender: Female : 1960 Any Known Allergies: Other Exam Priority: Routine Procedure(s): Procedure Description: Diagnostic procedure Procedure Description: Left Heart Catheterization Procedure Description: Right Heart Catheterization Procedure Description: Left ventriculography Procedure Description: O2 saturation Procedure Description: Coronary Angiography Procedure Description: Pressure Wire Diagnostic Cath Status: Elective Diagnostic Findings * Patient with factor V Leiden mutation, pulmonary hypertension, previous pulmonary embolism and COPD with suspected pulmonary hypertension. Admitted with chest pain and elevated troponin. Right and left heart catheterization recommended. Right heart catheterization was done from the right brachial vein. Peak pulmonary artery pressure was 44 mmHg. Other values are as noted on the chart. Aortic saturation was 98%. * Coronary angiography reveals right coronary artery dominance. The left main coronary artery is normal and bifurcates into the LAD and circumflex. There is a 40 to 50% eccentric stenosis in the ostial LAD seen only in limited views. The remainder of the LAD is normal. The circumflex is normal. The right coronary artery is the dominant vessel and ends distally as the posterior descending artery and left posterior ventricular branch. The right coronary artery is normal. PCI LVEF Assessed: Yes Interventional Findings * IFR of the ostial LAD lesion is 0.98. Conclusions 1. Mild pulmonary hypertension. Normal coronary arteries except for 50% ostial LAD lesion with IFR of 0.98. Normal left ventricular function. Recommendations * Stop smoking. Interventional RX Recommendation: medical therapy and/or counseling Diagnostic RX Recommendation: medical therapy and/or counseling Ventriculography Ejection Fraction: 60.0 % Pressures Phase:Rest AO : 166 / 80 ( 111 ) @ 10:25:00 AM 130 / 83 ( 105 ) @ 10:26:00 AM 133 / 85 ( 108 ) @ 10:27:00 AM 142 / 43 ( 85 ) @ 10:33:00 AM 147 / 47 ( 83 ) @ 10:33:00 AM 193 / 90 ( 125 ) @ 10:34:00 AM 176 / 78 ( 115 ) @ 10:40:00 AM LV : 175 / 0 / 21 @ 10:32:00 AM 175 / 1 / 20 @ 10:32:00 AM 173 / 1 / 20 @ 10:33:00 AM RV : 43 / 8 / 16 @ 10:04:00 AM PA : 47 / 23 ( 33 ) @ 10:05:00 AM RA : a wave = 19 v wave = 18 mean = 16 @ 10:04:00 AM PCW : a wave = 28 v wave = 26 mean = 24 @ 10:05:00 AM O2 Content Phase:Rest PA : O2 Content O2: 76.5 @ 10:25:00 AM Saturations Phase:Rest AO : 97 @ 10:26:00 AM RA : 80 @ 10:27:00 AM PA : 77 @ 10:25:00 AM Cardiac Output Phase:Rest Duane : 5 @ 9:58:42 AM Duane Cardiac Index: 2 @ 9:58:42 AM Flow Phase:Rest Qp : 5 @ 9:58:42 AM Qs : 5 @ 9:58:42 AM Valves Phase:DefaultPhase AV : 31.0 @ 9:58:42 AM 31.0 @ 9:58:42 AM AV Mean Gradient: 31.0 @ 9:58:42 AM 31.0 @ 9:58:42 AM AV Flow: 208 @ 9:58:42 AM AV Area: 0.8 @ 9:58:42 AM AV Area Index: 0.44 @ 9:58:42 AM Clinical Evaluation EBL: 5mL-10mL Procedural Details Procedure Consent Obtained. Pre-Procedure Time Out. Identified patient by full name and date of as verbalized by the patient/guarantor. Does the consent match the physician's order: Yes. Accurate & Complete Informed Consent: Yes. Inpatient/Outpatient History & Physical on Chart: Yes. If H&P is completed, is and addenduem needed: No; If yes, is the addendum complete: N/A. Visualize and Verify Site with Patient/Guarantor: N/A. Relevant Radiology Images available: Yes. Pre-op teaching completed and patient verbalized understanding. The risks, benefits, and alternatives of sedation and/or procedure were discussed by physician. The patient agrees to continue. Procedure started. [facility] Clinical Fraility Score: 3: Managing Well. Msws Indications: Other. Chest Pain Symptom Assessment: Typical Angina Symptoms. Correct patient, site and procedure confirmed by cath team. PERRLA. Strong, equal hand whiting can worker bilaterally. Lungs clear x 5 lobes. IV Site on Arrival: 18 gauge in the right hand. IV Fluids: 0.9% NaCl at KVO. 0 mL infused prior to photographic laboratory technician. Oxygen started at 4liters/min via nasal canula. right groin was prepped with chloroprep then draped in the usual sterile fashion. right radial was prepped with chloroprep then draped in the usual sterile fashion. right brachial was prepped with chloroprep then draped in the usual sterile fashion. Physician notified. Vital chart was stopped. A 20 gauge IV was started in the right anticubital using aseptic technique. Physician arrived. Baseline sample Acquired. HR: 44 BPM. Physician scrubbed in. Immediate Pre-Procedure Time Out. Correct Patient: Yes; Correct Procedure: Yes; Correct Site: Yes; Correct Patient Position: Yes; Correct Supplies: Yes; Dried Flammable Prep: Yes; Blood Products Available: N/A;. Lidocaine 1% infiltrated to the right brachial. Sheath wire inserted through the right brachial IV catheter. IV catheter out OTW. Perrin-Samira MON catheter inserted. 0.025 wire inserted through the catheter. Wire out. Oximetry samples were obtained. Normal venous range: 60-85%. Normal arterial range: 95-100%. Pressure measurements obtained. Perrin-Samira out. Lidocaine 1% infiltrated to the right radial. An attempt to gain access to the right radial artery was unsuccessful. Manual pressure was held as needed to stop the bleeding. Lidocaine 1% infiltrated to the right groin. Arterial access obtained. Respiratory called to run O2 saturations. A 5 filipino JL4 catheter in over wire. Multiple views taken of left coronary artery. Catheter removed over the exchange wire. A 5 filipino Angled Pig catheter in over wire. EDP Sample taken: LV 175/-1,21; HR: 49 BPM; SpO2: 98%. LV gram performed in YUSUF @ 10 mL/second for a total of 30 mL. EDP Sample taken: LV 175/1,20; HR: 52 BPM; SpO2: 100%. Pullback taken: LV 173/1,20; AO 142/43(85); Mean: 31mmHg, Peak to Peak: 31mmHg, SEP: 22sec/min; HR: 56 BPM; SpO2: 99%. Catheter removed over the exchange wire. A 5 filipino JR4 catheter in over wire. Multiple views taken of right coronary artery. Catheter removed over the exchange wire. Physician review of cine films. Sheath upsized to a 6 Fr. 6 filipino XB 3 guide catheter was inserted over the wire. IFR guidewire was advanced through the guide catheter to lesion in the ostial LAD. IFR Result: 0.98. Wire out. Guide catheter out. Physician scrubbed out. A Suture was successful obtaining hemostatsis at the Right Femoral artery insertion site. Arterial sheath flushed and connected to tranducer and pressure bag with heparinized saline. Post Procedure: Pulses reassessed and unchanged. PERRLA. Strong, equal hand whiting can worker bilaterally. No VTE prophylaxis required. Vital chart was stopped. Medication's Wasted: Lidocaine 1% = 3 mL. Medication's Wasted: Nitro = 50 mg. Medication's Wasted: Heparin = 4000 units. Total IV fluids: 60 mL. Complications: None. Post-op diagnosis: Non-obstructive CAD. Estimated blood loss: 5mL-10mL. Responsiveness - Normal response to verbal stimuli; alert and oriented, PERRLA. Airway - Unaffected, no intervention required; spontaneous ventilation. Circulation: W/N/L, pulses unchanged. Nausea/Vomiting: No. A Manual Compression was unsuccessful obtaining hemostatsis at the Right Brachial Vein insertion site. Procedure completed. Patient transferred by bed to 1st floor. Access Site Site: Right Brachial Vein Sheath Size: 6 Fr Hemostasis Method: Manual Compression Hemostasis Success: Unsuccessful Site: Right Femoral artery Sheath Size: 5 Fr Hemostasis Method: Suture Hemostasis Success: Successful Procedure Medications Start: 8:41 AM Stop: 8:41 AM Medication: Fentanyl Amount: 25 mcg Route: I.V. Start: 8:42 AM Stop: 8:42 AM Medication: Benadryl Amount: 25 mg Route: I.V. Start: 8:45 AM Stop: 8:45 AM Medication: Fentanyl Amount: 50 mcg Route: I.V. Start: 8:50 AM Stop: 8:50 AM Medication: Versed Amount: 1 mg Route: I.V. Start: 8:55 AM Stop: 8:55 AM Medication: Versed 1 mg and Fentanyl 25 mcg Amount: 1 Route: I.V. Start: 8:58 AM Stop: 8:58 AM Medication: Versed Amount: 1 mg Route: I.V. Start: 9:18 AM Stop: 9:18 AM Medication: Versed Amount: 1 mg Route: I.V. I, the attending physician, have reviewed and verified all procedure medications. Yes, all medications given per verbal order History/Risk Factors Hypertension: Yes Dyslipidemia: No Peripheral Arterial Disease (PAD): No Myocardial Infarction (DC): No Obesity: No Renal Disease: No Tobacco Use: Current/Recent(w/in 1 year) Prior Interventions PCI: No CABG: No Valve Surgery: No Report Signatures Finalized by Dr. Jas Villareal MD on 03/25/2023 10:17 AM
[2023-03-25] MEDS: methylPREDNISolone sod succ 40 MG in water for injection-sterile 1 ML 12 MG IVP ×2 (08:25→16:06)
[2023-03-25] MEDS: sodium chloride 0.9% 1,000 ML 50 ML IV (08:26)
[2023-03-25] MEDS: pantoprazole 40 mg SDV IVP ×2 (08:26→20:25)
[2023-03-25] MEDS: aspirin 325 mg Tablet PO (08:28)
[2023-03-25] MEDS: clopidogrel 75 mg Tablet PO (08:38)
[2023-03-25 09:28] LABS: Arterial Blood Gas Hematocrit 10.2 % (37-47); Blood Gas Operator Identificat WALCI; Blood Gas Sample Type Not specified; Carboxyhemoglobin 1.6 %THgb (0.4-20.1); HGB O2 Sat 77.2 % (95-100); Methemoglobin 1.4 % (0.4-1.5); Oxygen Device NC; Total Hemoglobin 3.3 g/dL (12-16)
[2023-03-25 09:31] LABS: Arterial Blood Gas Hematocrit 39.3 % (37-47); Blood Gas Operator Identificat WALCI; Blood Gas Sample Type Not specified; Carboxyhemoglobin 0.5 %THgb (0.4-20.1); HGB O2 Sat 96.3 % (95-100); Methemoglobin 0.6 % (0.4-1.5); Oxygen Device NC; Total Hemoglobin 12.8 g/dL (12-16)
[2023-03-25 09:34] LABS: Arterial Blood Gas Hematocrit < 10.0 % (37-47); Blood Gas Operator Identificat WALCI; Blood Gas Sample Type Not specified; Carboxyhemoglobin 1.7 %THgb (0.4-20.1); Methemoglobin 1.6 % (0.4-1.5); Oxygen Device NC; Total Hemoglobin 2.3 g/dL (12-16)
--- NOTE | 2023-03-25 10:18 | PC.NURSE ---
cpru nurse received pt from labor relations supervisor post right and left heart cath. pt alert and oriented x3. pt complains of no pain. right ac access wrapped with a pressure dressing. right femoral site connected to pressure bag, with distal pulse palpable. no bruising or hematoma noted at either site. pt educated on restrictions of right leg with pt stating understanding. pt placed on monitor and will be monitored per protocol. plan is to recover in [facility] for 30 minutes and then transfer to [facility].
[2023-03-25] MEDS: atorvastatin 40 mg Tablet 80 MG PO (12:14)
[2023-03-25] MEDS: docusate sodium 100 mg Capsule PO ×2 (12:15→17:30)
[2023-03-25] MEDS: doxycycline 100 mg Tablet PO ×2 (12:15→17:30)
[2023-03-25] MEDS: morphine 4 mg/mL SDV 1 mL 1 MG IVP ×2 (12:16→20:25)
--- NOTE | 2023-03-25 12:31 | PC.SOCIAL ---
Pg 2 IMM Explained to pt Pg 2 IMM. No questions voiced. Provided pt a copy. Initialed, dated, & timed a copy & placed in chart.
--- NOTE | 2023-03-25 13:50 | P.PN_ITS ---
Subjective Subjective: Patient was seen this morning, after cardiac catheterization procedure, she denies any fevers, no chills, no nausea, no vomiting, abdominal pain, Vitals/I&O/Wt Last Vital Signs Temp 97.3 F L 03/25/23 12:06 Pulse 53 L 03/25/23 13:30 Resp 17 03/25/23 13:30 BP 126/81 03/25/23 13:30 Pulse Ox 100 03/25/23 13:30 O2 Del Method Room Air 03/25/23 13:00 O2 Flow Rate 3 03/25/23 13:00 FiO2 24 03/25/23 12:00 03/24/23 03/25/23 03/25/23 22:59 06:59 14:59 Intake Total 240 / 240 Output Total 760 / 2510 240 / 2750 Balance -759 / -2268 -239 / -2507 240 / 240 Physical Exam Const: COMMON NORMALS: no acute distress and patient oriented x3 Resp: COMMON NORMALS: normal respiratory effort, No retractions and No use of accessory muscles AUSCULTATION: wheezes Cardio: COMMON NORMALS: regular rate, regular rhythm, S1 normal heart sound present and S2 normal heart sound present RATE: regular rate RHYTHM: regular rhythm HEART SOUNDS: S1 normal heart sound present and S2 normal heart sound present GI: COMMON NORMALS: Normal to inspection, nondistended, normoactive bowel sounds present and non-tender Extremity: COMMON NORMALS: no clubbing, cyanosis or edema and no pedal edema Neuro: COMMON NORMALS: patient oriented x3 Psych: COMMON NORMALS: mental status grossly normal Urinary Catheter Management: Deluca: Cath Placed During This Visit: yes Reason for Continuing Indwelling Catheter: Accurate Measurement of Urinary Output in Critically Ill Patients Urinary Catheter Date of Insertion: 03/24/23 Urinary Catheter Time of Insertion: 11:29 Data 03/25/23 03:45 03/25/23 03:45 A&P Assessment and plan (1) Tobacco dependence due to cigarettes: (2) Hypertensive urgency: (3) History of pulmonary embolism: (4) Cigarette nicotine dependence: Qualifiers: Substance use status: uncomplicated Qualified Code(s): F17.210 - Nicotine dependence, cigarettes, uncomplicated (5) Acute on chronic respiratory failure with hypoxia and hypercapnia: (6) Respiratory distress: (7) Pneumonia: (8) Acute exacerbation of chronic obstructive pulmonary disease: (9) Insomnia: Qualifiers: Insomnia type: unspecified Qualified Code(s): G47.00 - Insomnia, unspecified (10) Non-STEMI (non-ST elevated myocardial infarction): (11) Hyperkalemia: (12) Systolic CHF, acute: (13) Factor V Leiden mutation: (14) History of GI bleed: (15) Pulmonary hypertension: (16) Obstructive sleep apnea: Plan Acute COPD exacerbation Severe centrilobular emphysema Acute hypoxic hypercapnic respite failure NSTEMI History of pulmonary embolism, developed rectal bleeding on Pradaxa, she stopped taking Pradaxa, underwent EGD and colonoscopy, then eventually was placed back on low-dose Pradaxa Factor V heterozygosity Pulmonary hypertension Transition to oral prednisone Continue doxycycline 100 twice daily Continue DuoNeb Continue budesonide Respiratory therapy eval Cardiac echo ?LV systolic function is mildly reduced with EF of 45-50%.? Mild ?hypokinesis of anteroseptal wall.? Moderate hypokinesis of ?inferior and inferolateral montiel. ?Left atrial dilation ?Trace mitral regurgitation ?Trace aortic regurgitation ?Trace tricuspid regurgitation ?Compared to prior echocardiogram from 2020, LV systolic function ?is mildly reduced now with above mentioned regional wall motion ?abnormalities are noted Clinically does not look fluid overloaded however BNP is high which could be due to underlying pulm hypertension, will hold off on Lasix for today Continue BiPAP, uses a home invasive ventilator Currently in CSU given NSTEMI Patient counseled regarding smoking cessation she already has quitting date in April Will start cardiac diet this afternoon Cardiac echo LV systolic function is mildly reduced with EF of 45-50%.? Mild ?hypokinesis of anteroseptal wall.? Moderate hypokinesis of ?inferior and inferolateral montiel. ?Left atrial dilation ?Trace mitral regurgitation ?Trace aortic regurgitation ?Trace tricuspid regurgitation ?Compared to prior echocardiogram from 2020, LV systolic function ?is mildly reduced now with above mentioned regional wall motion ?abnormalities are noted Coronary cath Conclusions ? 1. Mild pulmonary hypertension.? Normal coronary arteries except for 50% ostial LAD lesion with IFR of 0.98.? Normal left ventricular function. CODE STATUS full code Hyperkalemia, resolved BRYAN: Resolved Non-STEMI: Significant delta troponin, no active chest pain, will request echo to see wall motion abnormality As above Patient lives alone at home uses 4 L of oxygen at baseline She also have sleep apnea uses CPAP at night Plan for today continue aspirin, Plavix, therapeutic Lovenox, cardiology c onsulted -I reviewed the medical records, -Patient has a history of COPD, emphysema, pulm hypertension for which she follows up with Dr. Russell -Back in April 2022 she had an episode of cardiac arrest, she was here at [facility], and she was transferred to [facility] she tells me it was because of pulmonary hypertension -I reviewed her discharge summary from [facility] she was transferred for cardiac arrest, the thought was the cardiac arrest was from acute hypoxic respiratory failure, there was also concerns for anoxic brain injury versus press syndrome, she had aggressive blood pressure control, she also had concern for central visual loss, for which she was supposed to follow- up with ophthalmology, from the records I see I cannot see any history of coronary angiogram or any stress testing -Reviewed her medical records from [facility], including her oncology note, Dr. Eli's note -She denies a history of coronary angiogram or stress testing -She denies going to the pulm hypertension clinic at [facility] Necessity Statement*: Patient requires hospitalization for fluid overload,requiring diuresis Diagnoses Tobacco dependence due to cigarettes F17.210 Hypertensive urgency I16.0 History of pulmonary embolism Z86.711 Cigarette nicotine dependence F17.210 Substance use status: uncomplicated Acute on chronic respiratory failure with hypoxia and hypercapnia J96.21; J96.22 Respiratory distress R06.03 Pneumonia J18.9 Acute exacerbation of chronic obstructive pulmonary disease J44.1 Insomnia G47.00 Insomnia type: unspecified Non-STEMI (non-ST elevated myocardial infarction) I21.4 Hyperkalemia E87.5 Systolic CHF, acute I50.21 Factor V Leiden mutation D68.51 History of GI bleed Z87.19 Pulmonary hypertension I27.20 Obstructive sleep apnea G47.33
[2023-03-25] MEDS: ipratropium-albuterol 3 mL Neb INHALATION ×2 (15:33→20:16)
[2023-03-25] MEDS: quetiapine 100 mg Tablet 200 MG PO (20:25)
[2023-03-26] VITALS (71 sets, daily range): BP systolic 116–137; BP diastolic 59–83; PULSE 47–67; RESP 14–24; TEMP 36.4–37.4; O2SAT 65–100
[2023-03-26] MEDS: methylPREDNISolone sod succ 40 MG in water for injection-sterile 1 ML 12 MG IVP (00:52)
[2023-03-26 04:05] LABS: Basophils % 0.2 %; Eosinophils % 0.2 %; Hematocrit 39.4 % (37.0-47.0); Hemoglobin 12.1 g/dL (11.5-15.3); Lymphocytes # 1.3 10^3/uL (0.8-4.8); Lymphocytes % 14.6 %; Mean Corpuscular HGB Conc 30.7 g/dL (30.0-36.0); Mean Corpuscular Hemoglobin 28.9 pg (28.0-34.0); Mean Platelet Volume 11.2 fL (7.4-10.4); Monocytes # 0.7 10^3/uL (0.2-0.9); Monocytes % 8.2 %; Neutrophils # 6.54 10^3/uL (1.8-7.7); Nucleated Red Blood Cells % 0 %; Platelet Count 165 10^3/cmm (130-400); Red Blood Count 4.19 10^6/uL (4.1-5.3); Red Cell Distribution Width 12.9 % (12.1-15.1); White Blood Count 8.6 10^3/uL (4.0-10.0)
[2023-03-26 04:36] LABS: Anion Gap 13.1 (5-19); Blood Urea Nitrogen 19 mg/dL (8-23); Calcium 8.7 mg/dL (8.5-10.5); Carbon Dioxide 32 mmol/L (22-29); Chloride 102 mmol/L (98-107); Glomerular Filtration Rate 85.4 mL/min (90-130); Glucose 104 mg/dL (65-115); NT Pro B Type Natriuretic Pept 2718 pg/mL (0-125); Osmolality Calculated 297 mOsm/kg (285-295); Potassium 5.1 mmol/L (3.5-5.1); Sodium 142 mmol/L (136-145)
[2023-03-26] MEDS: levothyroxine 175 mcg Tablet PO (06:12)
[2023-03-26] MEDS: sucralfate 1 gm Tablet PO ×2 (06:12→12:32)
[2023-03-26] MEDS: budesonide 0.5 mg/2 mL Neb INHALATION (07:40)
[2023-03-26] MEDS: aspirin 81 mg EC Tablet PO (09:11)
[2023-03-26] MEDS: predniSONE 20 mg Tablet 40 MG PO (09:11)
[2023-03-26] MEDS: doxycycline 100 mg Tablet PO (09:11)
[2023-03-26] MEDS: atorvastatin 40 mg Tablet 80 MG PO (09:13)
[2023-03-26] MEDS: docusate sodium 100 mg Capsule PO (09:14)
[2023-03-26] MEDS: pantoprazole DR 40 mg Tablet PO (09:44)
[2023-03-26] MEDS: FUROsemide 40 mg Tablet PO (09:45)
--- NOTE | 2023-03-26 11:52 | PM.DCS ---
Discharge Providers Date of Admission: 03/22/23 20:31 Date of Discharge: March 26, 2023 Attending Provider at Admission: Glenda Muhammad MD Attending Provider at Discharge: Freddie Kelly MD Primary Care Provider: HEAVEN Guajardo Diagnoses at Discharge Discharge Diagnosis (1) Tobacco dependence due to cigarettes: Status: Acute (2) Hypertensive urgency: Status: Acute (3) History of pulmonary embolism: Status: Acute (4) Cigarette nicotine dependence: Status: Chronic Qualifiers: Substance use status: uncomplicated Qualified Code(s): F17.210 - Nicotine dependence, cigarettes, uncomplicated (5) Acute on chronic respiratory failure with hypoxia and hypercapnia: Status: Acute (6) Respiratory distress: Status: Acute (7) Pneumonia: Status: Acute (8) Acute exacerbation of chronic obstructive pulmonary disease: Status: Acute (9) Insomnia: Status: Chronic Qualifiers: Insomnia type: unspecified Qualified Code(s): G47.00 - Insomnia, unspecified (10) Non-STEMI (non-ST elevated myocardial infarction): Status: Acute (11) Hyperkalemia: Status: Acute (12) Systolic CHF, acute: Status: Acute (13) Factor V Leiden mutation: Status: Acute (14) History of GI bleed: Status: Acute (15) Pulmonary hypertension: Status: Acute (16) Obstructive sleep apnea: Status: Acute Reason for Visit Reason for Visit: SOB Hospital Course Hospital Course Anne Turcios is a 62 year old female with past medical history of COPD, hypothyroidism, pulmonary hypertension pulmonary embolism, obstructive sleep apnea,?4L at [facility] with cpap presented to hospital with chief complaint of shortness of breath.? Patient is denying fever, productive cough, upper airway infection, recent infections, all of a sudden she started experiencing shortness of breath which she is describing as no drive at all to breathe on her own and nothing was helping her at home that prompted her visit to the ER.? In the ER she has been diagnosed with acute hypoxic hypercapnic respiratory failure, patient stating that her chest pain that she noticed at home which was substernal improved as soon as she was put on BiPAP, no active chest pain at the time of my evaluation, D-dimer 0.6, her respiratory status improved on BiPAP she was able to give me stated interview. I have requested ICU bed and will keep her on BiPAP overnight patient is an active smoker smoking 1 pack per 3 days, patient stating that her smoking cessation date is May 12, she is slowly cutting back on her daily smoking, BMP showing hyperkalemia however BMP sample is hemolyzed I request another ABG and BMP, she will go to ICU She was hypertensive 166/109mmhg? she was given labetalol that dropped her pressure significantly at the time of my evaluation she is 96/68 mmHg without any active symptoms Patient was admitted to [facility] for shortness of breath secondary to COPD exacerbation, she uses home AVAPS, managed with BiPAP, steroids, antibiotics, overall clinically improved, discharged on doxycycline and prednisone, continue home AVAPS, follow-up with pulmonary as outpatient Patient had complaints of chest discomfort during her hospitalization, with elevated troponins, echocardiogram showing EF of 45%, with wall motion abnormalities in the inferior wall, inferior lateral wall, anteroseptal wall, cardiology was consulted, underwent cardiac catheterization, with findings of mild pulmonary hypertension, and LAD lesion measuring 50% ostial LAD lesion with IFR 0.98. Patient will be discharged on aspirin, statin, follow-up with cardiology as outpatient For her history of pulmonary embolism, factor V heterozygosity, repeat CT angiogram of the chest was negative for pulmonary embolism discharged on her home low-dose of Pradaxa Due to concerns for GI bleeds, hemoglobin was monitored as inpatient and remained stable, no blood or black stools as inpatient, discharged on Protonix, Carafate if she were to have any bloody or black stools to go to the emergency room Patient had systolic CHF exacerbation during hospitalization, diuresis as inpatient, she will be discharged with Lasix and potassium as needed for shortness of breath or lower extremity edema or weight gain more than 3 pounds, to be used for a total of 3 days in a row, if beyond that she continues to feel short of breath that she should go to emergency room or see her primary care Patient had mental fogginess during her hospitalization, noted by me and family at bedside, her family tells me that since her cardiac arrest episode she continues to have mental fogginess she requires recurrent repeating of information, there was concern for anoxic brain injury after her cardiac arrest episode, she could have some lingering effects from that, or potentially vascular dementia given her smoking history., Discharged with follow-up with neurology as outpatient I had an extensive discussion for more than 10 minutes at bedside with patient about discussing smoking cessation, she has a underlying LAD lesion, there is concerns for possible vascular dementia, there is concerns for her underlying COPD she has had hospitalizations for COPD exacerbations, she needs to quit smoking, discussed morbidity and mortality associated, she voiced understanding, all questions answered Physical Exam Const: COMMON NORMALS: no acute distress and patient oriented x3 Resp: COMMON NORMALS: normal respiratory effort, No retractions, No use of accessory muscles and clear to auscultation bilaterally AUSCULTATION: clear to auscultation bilaterally Cardio: COMMON NORMALS: regular rate, regular rhythm, S1 normal heart sound present and S2 normal heart sound present RATE: regular rate RHYTHM: regular rhythm HEART SOUNDS: S1 normal heart sound present and S2 normal heart sound present GI: COMMON NORMALS: Normal to inspection, nondistended, normoactive bowel sounds present and non-tender Extremity: COMMON NORMALS: no pedal edema Neuro: COMMON NORMALS: patient oriented x3 Psych: COMMON NORMALS: mental status grossly normal Urinary Catheter Management: Deluca: Cath Placed During This Visit: yes, but has since been removed by the nurse Reason for Continuing Indwelling Catheter: Decision to DC Catheter Urinary Catheter Date of Insertion: 03/24/23 Urinary Catheter Time of Insertion: 11:29 Date Urinary Catheter Removed: 03/26/23 Time Urinary Catheter Discontinued: 10:43 Discharge Data Studies Completed and Pending Completed Studies During Hospitalization Category Date Time Status CT angio chest PE protcl [id number] Stat Cat Scan 03/22/23 17:18 Completed MECHANICAL PROJECT MANAGER request for service Routine Exams 03/25/23 08:23 Completed XR chest 1V portable [id number] Stat Exams 03/22/23 16:52 Completed CV. echo complete* [id number] Routine Ultrasound 03/22/23 21:04 Completed Pending at discharge Category Date Time Status MECHANICAL PROJECT MANAGER request for service Routine Exams 03/24/23 17:00 Stop Req BMP [Basic Metabolic Panel] AM LABS Lab 03/27/23 04:00 Ordered Radiology Impressions Chest X-Ray 03/22/23 16:52 IMPRESSION: 1. Bibasilar left greater than right subsegmental atelectasis versus infiltrate. 2. Trace bilateral effusions suspected. 3. Cardiomegaly. Chest CTA 03/22/23 17:18 IMPRESSION: 1. Negative for pulmonary embolus. 2. Main pulmonary is dilated which can be a finding of chronic pulmonary hypertension. 3. Cardiomegaly. 4. Coronary artery atherosclerotic calcifications. 5. Reflux of contrast into the intrahepatic veins suggestive of congestive heart failure. 6. Several prominent upper abdominal lymph nodes measuring up to 14 mm short axis, nonspecific. 7. Emphysematous changes. 8. Bibasilar right greater left airspace opacities with associated pleural thickening, similar to prior exam, may reflect chronic pleuroparenchymal fibrosis, areas of atelectasis and/or infiltrate are also considerations depending on the clinical scenario. 9. Chronic healed mid sternal body fracture. 10. Several chronic left anterior rib fractures. COMMENTS: In the absence of a history or active diagnosis of lung cancer, it is recommended that this patient with emphysema be evaluated for enrollment in a low dose CT lung cancer screening program. Laboratory Results WBC 8.6 10^3/uL (4.0-10.0) 03/26/23 03:37 Corrected WBC Cancelled 03/23/23 03:24 RBC 4.19 10^6/uL (4.1-5.3) 03/26/23 03:37 Hgb 12.1 g/dL (11.5-15.3) 03/26/23 03:37 Hct 39.4 % (37.0-47.0) 03/26/23 03:37 MCV 94.0 fl (81-99) 03/26/23 03:37 MCH 28.9 pg (28.0-34.0) 03/26/23 03:37 MCHC 30.7 g/dL (30.0-36.0) 03/26/23 03:37 RDW 12.9 % (12.1-15.1) 03/26/23 03:37 Plt Count 165 10^3/cmm (130-400) 03/26/23 03:37 MPV 11.2 fL (7.4-10.4) H 03/26/23 03:37 Gran % Cancelled 03/23/23 03:24 Neut % (Auto) 76.0 % 03/26/23 03:37 Lymph % (Auto) 14.6 % 03/26/23 03:37 Blaine % (Auto) 8.2 % 03/26/23 03:37 Eos % (Auto) 0.2 % 03/26/23 03:37 Baso % (Auto) 0.2 % 03/26/23 03:37 Neut # (Auto) 6.54 10^3/uL (1.8-7.7) 03/26/23 03:37 Lymph # (Auto) 1.3 10^3/uL (0.8-4.8) 03/26/23 03:37 Blaine # (Auto) 0.7 10^3/uL (0.2-0.9) 03/26/23 03:37 Eos # (Auto) 0.0 10^3/uL (0.0-0.8) 03/26/23 03:37 Baso # (Auto) 0.0 10^3/uL (0.0-0.1) 03/26/23 03:37 Absolute Gran (auto) Cancelled 03/23/23 03:24 Nucleated RBC % (auto) 0 % 03/26/23 03:37 Nucleated RBCs # 0.0 /100WBC 03/26/23 03:37 D-Dimer 0.67 ug/mIFEU (0-0.59) H 03/22/23 17:00 Specimen Type Not specified 03/25/23 09:22 Sample Site Not Reportable 03/25/23 09:22 ABG pH 7.33 (7.35-7.45) L 03/23/23 04:50 ABG pCO2 48.9 mmHg (35-45) H 03/23/23 04:50 ABG pO2 137.0 mmHg (80.0-100.0) H 03/23/23 04:50 ABG HCO3 26.0 mmol/L (22-26) 03/23/23 04:50 ABG Base Excess -0.8 mmol/L (-2.0-2.0) 03/23/23 04:50 Jordon Test N/a 03/25/23 09:22 A-a O2 Gradient Not Reportable 03/25/23 09:22 Hematocrit < 10.0 % (37-47) L 03/25/23 09:22 Hgb O2 Saturation 74.0 % (95-100) L 03/25/23 09:22 Carboxyhemoglobin 1.7 %THgb (0.4-20.1) 03/25/23 09:22 Methemoglobin 1.6 % (0.4-1.5) H 03/25/23 09:22 Total Hemoglobin 2.3 g/dL (12-16) L 03/25/23 09:22 O2 Delivery Device Nc 03/25/23 09:22 O2 Liters/Min 4.0 % 03/25/23 09:22 FiO2 35.0 % 03/23/23 04:50 Skein Inspector ID Mohit 03/25/23 09:22 Sodium 142 mmol/L (136-145) 03/26/23 03:37 Potassium 5.1 mmol/L (3.5-5.1) 03/26/23 03:37 Chloride 102 mmol/L (98-107) 03/26/23 03:37 Carbon Dioxide 32 mmol/L (22-29) H 03/26/23 03:37 Anion Gap 13.1 (5-19) 03/26/23 03:37 BUN 19 mg/dL (8-23) 03/26/23 03:37 Creatinine 0.7 mg/dL (0.5-0.9) 03/26/23 03:37 GFR Calculation 85.4 mL/min (90-130) L 03/26/23 03:37 Glucose 104 mg/dL (65-115) 03/26/23 03:37 Calculated Osmolality 297 mOsm/kg (285-295) H 03/26/23 03:37 Calcium 8.7 mg/dL (8.5-10.5) 03/26/23 03:37 Phosphorus 2.4 mg/dL (2.5-4.5) L 03/24/23 03:51 Magnesium 2.0 mg/dL (1.7-2.3) 03/26/23 03:37 Total Bilirubin 0.2 mg/dL (0.15-1.2) 03/24/23 03:51 AST 12 U/L (0-32) 03/24/23 03:51 ALT 41 U/L (0-33) H 03/24/23 03:51 Alkaline Phosphatase 70 U/L (35-105) 03/24/23 03:51 Troponin T Gen 5 ng/L 110 ng/L (0-10) H* 03/23/23 09:12 Troponin T Baseline 28 ng/L (0-10) H 03/22/23 17:00 Troponin T 120 Minute 104.6 ng/L (0-10) H 03/22/23 19:04 Delta Troponin T 76.6 ABS# (0-10) H* 03/22/23 19:04 Troponin T Hi Sens 6Hr 136.2 ng/L (0-10) H 03/22/23 23:02 Troponin T Hi Sens 6Hr Delta 108.2 ng/L (0-12) H* 03/22/23 23:02 C-Reactive Protein 5.2 mg/L (0.0-4.9) H 03/24/23 03:51 NT-Pro-B Natriuret Pep 2718 pg/mL (0-125) H 03/26/23 03:37 Total Protein 6.0 g/dL (6.6-8.7) L 03/24/23 03:51 Albumin 3.8 g/dL (3.5-5.2) 03/24/23 03:51 Globulin 2.2 g/dL (1.3-4.6) 03/24/23 03:51 Procalcitonin 0.05 ng/mL (0-0.5) 03/22/23 17:00 TSH 0.46 uIU/mL (0.27-4.20) 03/22/23 23:02 Vitals Last Vital Signs Temp 99.3 F 03/26/23 11:37 Pulse 67 03/26/23 11:37 Resp 17 03/26/23 11:37 BP 137/83 03/26/23 11:37 Pulse Ox 96 03/26/23 11:37 O2 Del Method Nasal Cannula 03/26/23 11:37 O2 Flow Rate 4 03/26/23 07:38 FiO2 24 03/26/23 08:00 Discharge Plan Discharge Patient Disposition: Home Condition: Stable Prescriptions: New atorvastatin 40 mg Tablet 40 mg PO DAILY 30 Days Qty: 30 0RF prednisone 20 mg Tablet 40 mg PO DAILY 5 Days Qty: 10 0RF doxycycline monohydrate 100 mg Tablet 100 mg PO BID 7 Days Qty: 14 0RF Lasix 40 mg tablet 40 mg PO DAILY PRN (Reason: edema) 30 Days Qty: 30 0RF Klor-Con 10 10 mEq tablet extended release 10 meq PO DAILY PRN (Reason: with lasix) 30 Days Qty: 30 0RF aspirin 81 mg capsule 81 mg PO DAILY 30 Days Qty: 30 0RF Protonix 40 mg tablet,delayed release (DR/EC) 40 mg PO BID 30 Days Qty: 60 0RF Carafate 1 gram tablet 1 g PO BID 30 Days Qty: 60 0RF Continued albuterol sulfate [ProAir HFA] 90 mcg/actuation HFA aerosol inhaler 2 puff INHALATION Q4H PRN (Reason: Shortness Of Breath) (DME) oxygen-air delivery systems Device See Rx Instructions .ROUTE .MEDSUPPLY Qty: 1 Rx Instructions: As directed 4L atorvastatin 20 mg tablet 20 mg PO BEDTIME@20 mirtazapine 15 mg tablet,disintegrating 15 mg PO .9 pm Qty: 30 6RF Rx Instructions: Take one tablet at 9 pm sertraline [Zoloft] 100 mg tablet 100 mg PO .morning Qty: 30 6RF Rx Instructions: Take one tablet every morning Trelegy Ellipta 100-62.5-25 mcg blister with device 1 inh inhalation DAILY Qty: 60 6RF dabigatran etexilate [Pradaxa] 75 mg capsule 75 mg PO BID Qty: 60 3RF levothyroxine 175 mcg tablet 175 mcg PO DAILY@06 albuterol sulfate 2.5 mg /3 mL (0.083 %) Solution For Nebulization 2.5 mg inhalation Q4H docusate sodium [Colace] 100 mg Capsule 100 mg PO BID quetiapine 200 mg tablet 200 mg PO .9PM montelukast 10 mg tablet 10 mg PO .EVENING Discharge Orders: Discharge Order (Routine); Ordered 03/26/23 Ordered By: Freddie Kelly Referrals: Greg Doran MD [Physician] - 1 month (We have notified your physician's clinic of the need for a follow-up appointment to be scheduled. If you have not heard from them within the next 2 business days, please call them directly. You may also reach out to our promotions manager at [phone] and she can assist you.) Daryl Alvarado MD [Physician] - 04/30/23 10:15 am (We have arranged an appointment with Dr. Alvarado in April if you have any issues or concerns with your health please contact your primary care provider or call 911 ) Ashley Germain FNP [Nurse Practitioner] - 1 week (chf) Miller,Ananya, MANAGER QUANTITATIVE [Primary Care Provider] - 03/31/23 2:30 pm (We have arranged you a follow up appointment if you are unable to keep this appointment please contact the clinic to arrange your care.) Discharge Diet: Cardiac Discharge Activity: Resume usual activity Patient Instructions: Furosemide (By mouth), Prednisone (By mouth), Potassium Chloride (By mouth), Atorvastatin (By mouth), Hypertension, How to Stop Smoking (DC), Cigarette Smoking and Your Health (GEN), Dyspnea (DC), Shortness of Breath (DC), COPD Stoplight, Opioid Safety Activity Restrictions/Additional Instructions: -take lasix 40mg qd as needed with potassium replacement for shortness of breath or edema or weight gain more than 3 pounds, may take 3 days in a row, but beyond this iif you coutinue to feel short of breath please go to the emergency room, please do not indefinitely take Lasix -please see dr. alvarado in 1 week -if you have chest pain or shortness of breath please go to emergency room -please see neurology in 1 month for memory issues -If you develop bloody or black stools please go to emergency room -Take antibiotics, steroids as prescribed -Please stop smoking Discharge Attestations Time Spent in Discharge Care*: greater than 30 min Time Spent in Smoking Cessation: more than 10 minutes Quality Metrics Clinical Quality Measures [ No reported AMI, CVA or VTE this stay] Coding Level of Care Code 31218 Total time (in minutes) for Discharge: 60 Diagnoses Tobacco dependence due to cigarettes F17.210 Hypertensive urgency I16.0 History of pulmonary embolism Z86.711 Cigarette nicotine dependence F17.210 Substance use status: uncomplicated Acute on chronic respiratory failure with hypoxia and hypercapnia J96.21; J96.22 Respiratory distress R06.03 Pneumonia J18.9 Acute exacerbation of chronic obstructive pulmonary disease J44.1 Insomnia G47.00 Insomnia type: unspecified Non-STEMI (non-ST elevated myocardial infarction) I21.4 Hyperkalemia E87.5 Systolic CHF, acute I50.21 Factor V Leiden mutation D68.51 History of GI bleed Z87.19 Pulmonary hypertension I27.20 Obstructive sleep apnea G47.33
--- NOTE | 2023-03-26 13:29 | PC.NURSE ---
Discharge Note Patient discharged to [home] via [wheelchair] accompanied by [family]. Discharge instructions reviewed with patient and/or circulation sales representative. Mobile pharmacy medications and/or prescriptions provided. Belongings/home medications returned.
== END 2023-03-26 13:15 | disposition home or self-care (01) | DRG 291 ==
LOC: ER 19:51 → ICU 20:31 → CSU 03-23 15:34
PROVIDERS: Internal Medicine Cardiovascular Disease; Admitting Provider Internal Medicine; Emergency Provider Emergency Medicine; PCP Nurse Practitioner Family; Visit Provider Family Medicine
DX: I50.21 Acute systolic (congestive) heart failure (principal); J18.9 Pneumonia, unspecified organism; J96.22 Acute and chronic respiratory failure with hypercapnia; J96.21 Acute and chronic respiratory failure with hypoxia; D68.51 Activated protein C resistance; N17.9 Acute kidney failure, unspecified; F33.9 Major depressive disorder, recurrent, unspecified; J43.2 Centrilobular emphysema; I16.0 Hypertensive urgency; F17.210 Nicotine dependence, cigarettes, uncomplicated; Z86.711 Personal history of pulmonary embolism; G47.00 Insomnia, unspecified; R77.8 Other specified abnormalities of plasma proteins; E87.5 Hyperkalemia; I27.20 Pulmonary hypertension, unspecified; G47.33 Obstructive sleep apnea (adult) (pediatric); E03.9 Hypothyroidism, unspecified; Z99.81 Dependence on supplemental oxygen; E78.5 Hyperlipidemia, unspecified; Z99.89 Dependence on other enabling machines and devices; F43.12 Post-traumatic stress disorder, chronic; Z79.51 Long term (current) use of inhaled steroids
CPT/HCPCS: 36415; 36600; 51702; 71045; 71271; 71275; 80048; 80053; 82803; 82810; 83735; 83880; 84100; 84132; 84145; 84443; 84484; 85025; 85378; 86140; 93005; 93306; 93460; 93571; 94640; 94660; 94664; 96361; 96372; 96374; 96375; 96376; 99152; 99153; 99291; C1751; C1769; C1887; C1894; C9113; J0696; J1200; J1644; J1650; J1940; J2250; J2270; J2920; J3010; J3490; J7030; J7512; J7626; Q9967

== ENCOUNTER → 2023-04-21 12:51 | Outpatient (BNVA) | payer MEDICARE, MEDICAID, SELFPAY | PROVIDERS: PCP Nurse Practitioner Family; Visit Provider Psychiatry & Neurology Neurology | DX: Z09 Encounter for follow-up examination after completed treatment for conditions other than malignant neoplasm; G93.1 Anoxic brain damage, not elsewhere classified | CPT/HCPCS: 99203 ==

== ENCOUNTER 2023-04-23 12:42 | Outpatient (CLI) | payer MEDICARE, MEDICAID, SELFPAY ==
--- NOTE | 2023-04-23 12:48 | USCV_ITS ---
Anne Turcios Age: 62 Gender: F : 1960 Exam Date: 04/23/2023 13:21 Ordering Phys: Greg Doran MD Technologist: Michelle Reyes Exam Location: [facility] Indication: POST CODE Risk Factors: Unknown Previous Vascular Surgery: None Right Brachial BP: / Left Brachial BP: / Right Left Velocity (cm/s) Spectral Plaque Velocity (cm/s) Spectral Plaque Syst/Diast Broadening Syst/Diast Broadening 110.30/22.10 Prox CCA 113.10/ 27.60 87.65/ 20.95 Mid CCA 67.50 / 17.10 59.50/ 16.50 Distal CCA 50.40 / 11.10 41.20/ 12.40 Prox ICA 47.70 / 11.50 75.40/ 26.40 Mid ICA 60.40 / 18.10 43.50/ 15.10 Distal ICA 67.10 / 21.80 91.50 ECA 77.90 0.85 ICA/CCA 0.99 Antegrade Vertebral Antegrade 51.30/ 9.30 cm/s 43.50/ 9.10 cm/s Tri Subclavian Bi 156.4 145.0 0 0 CONCLUSIONS Right ICA stenosis <50%. Mild atheromatous plaque right carotid bulb/ICA. Left ICA stenosis <50%. Mild atheromatous plaque left carotid bulb/ICA. Intimal thickening in the common carotid arteries and internal carotid arteries bilaterally. Normal antegrade Doppler flow noted in the right vertebral artery. Normal antegrade Doppler flow noted in the left vertebral artery. Kenny Elizabeth MD (Electronically Signed) Final Date: 23 April 2023 15:45 S
== END 2023-04-23 12:43 | disposition home or self-care (01) ==
PROVIDERS: PCP Nurse Practitioner Family; Visit Provider Nurse Practitioner Family
DX: Z09 Encounter for follow-up examination after completed treatment for conditions other than malignant neoplasm (principal)
CPT/HCPCS: 93880

== ENCOUNTER 2023-05-28 13:59 | Outpatient (CLI) | payer MEDICARE, MEDICAID, SELFPAY ==
--- NOTE | 2023-05-28 14:22 | US_ITS ---
WS: [id number] RIGHT UPPER QUADRANT ULTRASOUND HISTORY: ABNORMAL LEVELS OF OTHER SERUM ENZYMES COMPARISON: None available. Liver: 17.0 cm in length. Normal size liver and echogenicity. No bile duct dilatation or mass. Portal Vein: Normal hepatopetal flow with monophasic waveform. Gallbladder: Normally distended gallbladder with no stones or wall thickening. CBD: 0.3 cm Pancreas: Pancreas is nearly completely obscured by bowel gas. Right kidney: 10.3 cm in length. Normal size and echogenicity. No hydronephrosis or mass. Aorta and IVC: Unremarkable abdominal aorta and IVC. No ascites. IMPRESSION: Normal RIGHT upper quadrant ultrasound.
== END 2023-05-28 14:00 | disposition home or self-care (01) ==
PROVIDERS: PCP Nurse Practitioner Family; Visit Provider Nurse Practitioner Family
DX: R74.8 Abnormal levels of other serum enzymes (principal)
CPT/HCPCS: 76705

== ENCOUNTER → 2023-07-12 15:08 | Outpatient (BNVA) | payer MEDICARE, MEDICAID, SELFPAY | PROVIDERS: PCP Nurse Practitioner Family; Visit Provider Internal Medicine Pulmonary Disease | DX: J43.2 Centrilobular emphysema (principal); Z71.6 Tobacco abuse counseling; F17.210 Nicotine dependence, cigarettes, uncomplicated; I26.99 Other pulmonary embolism without acute cor pulmonale; G47.33 Obstructive sleep apnea (adult) (pediatric); I27.20 Pulmonary hypertension, unspecified; I46.9 Cardiac arrest, cause unspecified; Z99.89 Dependence on other enabling machines and devices; Z99.81 Dependence on supplemental oxygen | CPT/HCPCS: 99214 ==

== ENCOUNTER → 2024-01-12 14:52 | Outpatient (BNVA) | payer MEDICARE, MEDICAID, SELFPAY | PROVIDERS: PCP Nurse Practitioner Family; Visit Provider Internal Medicine Pulmonary Disease | DX: J44.9 Chronic obstructive pulmonary disease, unspecified (principal); Z71.6 Tobacco abuse counseling; F17.210 Nicotine dependence, cigarettes, uncomplicated; G47.33 Obstructive sleep apnea (adult) (pediatric); I27.20 Pulmonary hypertension, unspecified; Z86.711 Personal history of pulmonary embolism; Z86.74 Personal history of sudden cardiac arrest | CPT/HCPCS: 99214 ==

== ENCOUNTER 2024-04-28 14:11 | Outpatient (CLI) | payer MEDICARE, MEDICAID, SELFPAY ==
--- NOTE | 2024-04-28 14:13 | CT_ITS ---
WS: [id number] LDCT LUNG CANCER SCREENING HISTORY: NICOTINE DEPENDENCE TECHNIQUE: Axial imaging performed from the apices to 1 cm below the costophrenic angles. Coronal and sagittal reformats are submitted with axial MIP series. All CT scans at [facility] use at least one of these dose optimization techniques: automated exposure control; mA and/or kV adjustment per patient size (includes targeted exams where dose is matched to clinical indication); or iterativ e reconstruction. DLP: 92.91 mGy.cm DIvol: Mean CTDIvol: 1.90 (mGy) COMPARISON: 03/22/2023 Diagnostic quality: Satisfactory Lungs: Marked pulmonary hyperinflation. Bullous emphysema. Larger bulla RIGHT upper lobe. Stable pleu ral-parenchymal nodularity is probably rounded atelectasis at the medial RIGHT lung base. There is an additional smaller pleural-based nodule at the LEFT lung base. Smaller nodule measures 6 x 9 mm. RIG HT lower lobe bronchiectasis. Heart: Normal size heart with no pericardial effusion.. Other findings: Atherosclerosis aorta. Marked dilatation of the pulmonary artery to 5.1 cm. No medias tinal or hilar adenopathy. No adrenal mass. Healed fracture mid sternum. CT/CT lung screening [id number] IMPRESSION: LUNG-RADS: 2S-Benign Appearance or Behavior with Significant Findings FOLLOW UP: 12 Month: Continue annual screening with LDCT OTHER FINDINGS (S MODIFIER): Rounded atelectasis RIGHT lower lobe. Marked pulmo nary hypertension.
== END 2024-04-28 14:12 | disposition home or self-care (01) ==
LOC: RAD 14:12
PROVIDERS: PCP Nurse Practitioner Family; Visit Provider Nurse Practitioner Family
DX: F17.210 Nicotine dependence, cigarettes, uncomplicated (principal); I70.0 Atherosclerosis of aorta; J43.8 Other emphysema; R91.8 Other nonspecific abnormal finding of lung field
CPT/HCPCS: 71271

== ENCOUNTER → 2024-05-02 12:44 | Outpatient (BNVA) | payer MEDICARE, MEDICAID, SELFPAY ==
[2024-05-12 13:35] VITALS: BP 135/77; BMI 32.6
== END ==
PROVIDERS: PCP Nurse Practitioner Family; Visit Provider Internal Medicine Critical Care Medicine
DX: J96.11 Chronic respiratory failure with hypoxia (principal); J96.12 Chronic respiratory failure with hypercapnia; J44.9 Chronic obstructive pulmonary disease, unspecified; D68.51 Activated protein C resistance; Z86.711 Personal history of pulmonary embolism; I27.20 Pulmonary hypertension, unspecified; F17.210 Nicotine dependence, cigarettes, uncomplicated; F17.290 Nicotine dependence, other tobacco product, uncomplicated; G47.33 Obstructive sleep apnea (adult) (pediatric); E66.09 Other obesity due to excess calories; Z68.32 Body mass index [BMI] 32.0-32.9, adult; Z71.6 Tobacco abuse counseling; Z71.82 Exercise counseling; Z71.3 Dietary counseling and surveillance
CPT/HCPCS: 99214

== ENCOUNTER → 2024-11-07 13:25 | Outpatient (BNVA) | payer MEDICARE, MEDICAID, SELFPAY ==
[2024-05-12 13:35] VITALS: BP 135/77; BMI 32.6
== END ==
PROVIDERS: PCP Nurse Practitioner Family; Visit Provider Podiatrist Foot & Ankle Surgery
DX: I73.9 Peripheral vascular disease, unspecified (principal); L60.3 Nail dystrophy; L84 Corns and callosities; H54.7 Unspecified visual loss
CPT/HCPCS: 11055; 11721; 99203

== ENCOUNTER → 2024-11-23 13:49 | Outpatient (BNVA) | payer MEDICARE, MEDICAID, SELFPAY ==
[2024-05-12 13:35] VITALS: BP 135/77; BMI 32.6
== END ==
PROVIDERS: PCP Nurse Practitioner Family; Visit Provider Registered Nurse Neonatal Intensive Care
DX: R39.9 Unspecified symptoms and signs involving the genitourinary system (principal)
CPT/HCPCS: 81000; 87086

== ENCOUNTER → 2025-01-22 14:05 | Outpatient (BNVA) | payer MEDICARE, MEDICAID, SELFPAY ==
[2024-05-12 13:35] VITALS: BP 135/77; BMI 32.6
== END ==
PROVIDERS: PCP Nurse Practitioner Family; Visit Provider Podiatrist Foot & Ankle Surgery
DX: I73.9 Peripheral vascular disease, unspecified (principal); L60.3 Nail dystrophy; L84 Corns and callosities; H54.7 Unspecified visual loss
CPT/HCPCS: 11055; 11721

== ENCOUNTER → 2025-03-26 12:58 | Outpatient (BNVA) | payer OTHER, MEDICAID, SELFPAY ==
[2024-05-12 13:35] VITALS: BP 135/77; BMI 32.6
== END ==
PROVIDERS: PCP Nurse Practitioner Family; Visit Provider Podiatrist Foot & Ankle Surgery
DX: I73.9 Peripheral vascular disease, unspecified (principal); L60.3 Nail dystrophy; H54.7 Unspecified visual loss
CPT/HCPCS: 11721

== ENCOUNTER → 2025-04-09 14:39 | Outpatient (BNVA) | payer OTHER, MEDICAID, SELFPAY ==
[2024-05-12 13:35] VITALS: BP 135/77; BMI 32.6
== END ==
PROVIDERS: PCP Nurse Practitioner Family; Visit Provider Nurse Practitioner Family
DX: B35.6 Tinea cruris (principal); L57.8 Other skin changes due to chronic exposure to nonionizing radiation; L08.9 Local infection of the skin and subcutaneous tissue, unspecified; D48.5 Neoplasm of uncertain behavior of skin
CPT/HCPCS: 11104; 11105; 99204

== ENCOUNTER → 2025-04-19 11:37 | Outpatient (BNVA) | payer OTHER, MEDICAID, SELFPAY ==
[2024-05-12 13:35] VITALS: BP 135/77; BMI 32.6
== END ==
PROVIDERS: PCP Nurse Practitioner Family; Visit Provider Nurse Practitioner Family
DX: C43.39 Malignant melanoma of other parts of face (principal); L57.8 Other skin changes due to chronic exposure to nonionizing radiation
CPT/HCPCS: 99213

== ENCOUNTER → 2025-04-25 10:22 | Outpatient (BNVA) | payer OTHER, MEDICAID, SELFPAY ==
[2024-05-12 13:35] VITALS: BP 135/77; BMI 32.6
== END ==
PROVIDERS: PCP Nurse Practitioner Family; Visit Provider Dermatology
DX: D22.5 Melanocytic nevi of trunk (principal); B35.4 Tinea corporis; D03.39 Melanoma in situ of other parts of face
CPT/HCPCS: 11643; 12053; 99214

== ENCOUNTER → 2025-05-29 13:44 | Outpatient (BNVA) | payer OTHER, MEDICAID, SELFPAY ==
[2024-05-12 13:35] VITALS: BP 135/77; BMI 32.6
== END ==
PROVIDERS: PCP Nurse Practitioner Family; Visit Provider Podiatrist Foot & Ankle Surgery
DX: I73.9 Peripheral vascular disease, unspecified (principal); L60.3 Nail dystrophy; L84 Corns and callosities; H54.7 Unspecified visual loss
CPT/HCPCS: 11055; 11721